=== PATIENT | male | born 1945 | race Hispanic/Latino ===

== ENCOUNTER 2016-04-08 18:09 | Inpatient (IN) | payer MEDICARE ==
--- NOTE | 2016-04-08 19:17 | Emergency Department Report ---
Chief Complaint: Altered Mental Status Stated Complaint: DEMENTIA/CHOKING ON SALIVA Time Seen by Provider: 04/08/16 19:14 - HPI History of Present Illness: 70 y/o male complain of increase weakness x 4 month with decrease appetite.pt state loss weigh over the last 4 months. - ROS Review of Systems: per HPI - Exam Vital Signs: Vital Signs 04/08/16 18:51 Temperature 97.6 F Pulse Rate 92 H Respiratory 18 Rate Blood Pressure 127/59 O2 Sat by Pulse 97 Oximetry Physical Exam: GENERAL: The patient is mal nourished. Patient is in NAD. HENT: Normocephalic. Atraumatic. Patient has moist mucous membranes. Throat: No erythema, swelling or exudates. Ears:Tympanic membranes pearly key ,intact , and free of exudate and erythema . EYES: Extraocular motions are intact,in the left eye PERRL to left eye NECK: Supple. No meningitic signs are noted. There is no adenopathy noted. CHEST/LUNGS: Clear to auscultation bilaterally. No wheezing, rales or rhonchi noted. There is no respiratory distress noted. HEART/CARDIOVASCULAR: Regular rate and rhythm. Normal S1 S2. No murmurs, rubs , clicks, or gallops. ABDOMEN: Abdomen is soft, nontender.. Bowel sounds normoactive. There is no abdominal distention. Negative rebound tenderness. : Deferred. SKIN: There is no rash. There is no edema. There is no diaphoresis.Normal skin turgor NEURO: The patient is A&Ox3. The patient has no focal neurologic deficits. MUSCULOSKELETAL: There is no tenderness or deformity. There is no limitation range of motion. posture erect.Spine aligned,no deformities. PSYCH: Pt has appropriate mood and affect. MSE screening note: Focused history and physical exam performed. Due to findings the following was ordered: ED Disposition for MSE Condition: Stable
[2016-04-08 20:05] LABS: INR 1.17 (0.87-1.13)
[2016-04-08 20:06] LABS: Partial Thromboplastin Time 28.1 Sec. (24.2-36.6)
[2016-04-08 20:09] LABS: Alanine Aminotransferase 16 units/L (7-56); Albumin 3.1 g/dL (3.9-5); Albumin/Globulin Ratio 0.9 %; Alkaline Phosphatase 757 units/L (35-129); Anion Gap 30 mmol/L; Bilirubin,Total 0.2 mg/dL (0.1-1.2); Calcium 8.6 mg/dL (8.4-10.2); Carbon Dioxide 22 mmol/L (22-30); Chloride 95.5 mmol/L (98-107); Glucose 114 mg/dL (75-100); Sodium 141 mmol/L (137-145); Total Protein 6.7 g/dL (6.3-8.2)
[2016-04-08 20:15] LABS: Bilirubin,Direct < 0.2 mg/dL (0-0.2)
[2016-04-08 20:17] LABS: Potassium 6.2 mmol/L (3.6-5.0)
[2016-04-08 20:21] LABS: Urine Drugs of Abuse Note Disclamer
[2016-04-08 20:27] LABS: BUN/Creatinine Ratio 8.08; Blood Urea Nitrogen 114 mg/dL (9-20)
[2016-04-09] MEDS ORDERED: CALCIUM CHLORIDE 1,000 MG in NACL 0.9% 100 ML IV ONE (01:34)
[2016-04-09] MEDS ORDERED: PROVENTIL IH ONE (01:34)
[2016-04-09] MEDS ORDERED: LASIX PO ONE (01:34)
[2016-04-09] MEDS ORDERED: D50W (25GM) IV ONE (01:34)
[2016-04-09] MEDS ORDERED: SODIUM BICARBONATE IV ONE (01:34)
[2016-04-09] MEDS ORDERED: KIONEX PO ONE (01:35)
[2016-04-09] MEDS ORDERED: NACL 0.9% 1000 ML 1,000 ML IV ONE (01:45)
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
[2016-04-09 02:13] LABS: Hematocrit 25.1 % (35.5-45.6); Hemoglobin 8.2 gm/dl (11.8-15.2); Mean Corpuscular HGB Conc 33 % (32-34); Mean Corpuscular Volume 74 fl (84-94); Platelet Count 345 K/mm3 (140-440); White Blood Count 10.8 K/mm3 (4.5-11.0)
[2016-04-09 02:40] LABS: Mean Corpuscular Hemoglobin 24 pg (28-32); Red Cell Distribution Width 20.6 % (13.2-15.2)
[2016-04-09] MEDS ORDERED: NACL 0.45% IV SCH (03:00)
[2016-04-09] MEDS ORDERED: SODIUM BICARBONATE IV SCH (03:00)
--- NOTE | 2016-04-09 03:42 | Ultrasound Report ---
FINAL REPORT PROCEDURE: US RENAL BILAT TECHNIQUE: Real-time sonography in multiple planes of the kidneys, ureters and urinary bladder was performed with image documentation. CPT 40468 HISTORY: arf COMPARISON: No prior studies are available for comparison. FINDINGS: RIGHT kidney: There is mild hydronephrosis. There are no stones, masses or cysts. The cortex is normal in thickness and demonstrates normal echotexture. There is no perinephric fluid.. Length: 11.4 cm. LEFT kidney: There is mild hydronephrosis. There are no stones, masses or cysts. The cortex is normal in thickness and demonstrates normal echotexture. There is no perinephric fluid... Length: 12.3cm. Bladder: Bladder is contracted containing a Hansen catheter.. IMPRESSION: Mild bilateral hydronephrosis..
[2016-04-09 03:54] LABS: Blastocytes % (Manual) 0 %
[2016-04-09 03:55] LABS: Anisocytosis 1+; Elliptocytes Few; Poikilocytosis 1+; Schistocytes Rare; Target Cells Few; Tear Drop Cells Few
[2016-04-09 03:58] LABS: Diff Status Complete
[2016-04-09] MEDS ORDERED: NACL 0.9% 1000 ML IV ONE (04:00)
[2016-04-09] MEDS ORDERED: NACL 0.9% 1000 ML 100 ML IV PRN (08:00)
--- NOTE | 2016-04-09 08:50 | XRay Report ---
Portable chest: There are compressed rib fractures along the upper lateral chest wall. There is mild generalized increase in interstitial pulmonary pattern. The heart is normal in size and mediastinal contours unremarkable. The interstitial pattern appears somewhat more prominent than prior exam on December 18, 2013 but the compressed rib fractures are also previously present. Impression: The slightly prominent interstitial pattern could be due to mild congestive changes or primary lung disease.
--- NOTE | 2016-04-09 09:11 | Admit Criteria Form ---
Admission Criteria Documentation: RENAL FAILURE, ACUTE Clinical Indications for Admission to Inpatient Care ( Place 'X' for any and all applicable criteria): Admission is indicated for ALL (if I & II) or III of the following [A](2)(3)(4)( 5)(6)(7): [X]I. Acute renal failure as indicated by ANY ONE of the following: [X]a) A 3-fold rise in serum creatinine from baseline [X]b) Serum creatinine greater than 4 mg/dL (354 micromoles/L) with an acute rise greater than 0.5 mg/dL (44.2 micromoles/L) [X]c) Reduction of more than 75% in estimated glomerular filtration rate from baseline [ ]d) Estimated glomerular filtration rate less than 35 mL/min/1.73m2 (0.59mL/sec/1.73m2)in a child up to 18 years of age [ ]e) Anuria indicated by ALL of the following: [ ]i) Adequate volume status [ ]ii) Cessation of urine output indicated by ANY ONE of the following: [ ]1) Urine output less than 0.3 mL/kg/hr for 24 hours [ ]2) Anuria (urine output less than 0.1 mL/kg/ hr) for 12 hours [X] II. Renal failure cannot be managed in an outpatient setting or observational care setting as indicating by ANY ONE of the following: [X]a) Altered mental status that is severe or persistent [ ]b) Volume overload or Respiratory distress (eg, clinically significant pulmonary edema) that is severe or persistent [ ]c) Cardiac arrhythmias of immediate concern [ ]d) Hemodynamic instability [X]e) Clinically significant electrolyte abnormality that requires inpatient care (eg, hyperkalemia with severe ECG findings)[B] [ ]f) Clinically significant metabolic abnormality (eg, acidosis) that is severe or persistent [ ]g) Acute treatment of renal failure (eg, renal replacement therapy) not feasible or appropriate in observational care setting [X]h) Clinical situation too unstable or uncertain (eg, inadequate urine output, ongoing decline in renal function, etiology unclear) [ ]i) Necessary support and caregiver ability to comply with outpatient treatment cannot be arranged in observation care timeframe (eg, within 24 hours) [ ]j) Other significant finding or clinical condition judged not to be within scope of observation care [X]III.General contraindications and/or Inappropriate clinical situations for Observational Care in patients with Acute Renal Failure, when ANY ONE of the following is required: [ X]a) Prediction of prolongation of LOS based on ANY ONE of the following may be considered as a contraindication for observational care 2, 3, 4, 5, 6, 7, 8 , 9, 10, 11 [X]i) Age > 65 yrs. [ ]ii) Patient arriving by ambulance [ ]iii) Patient with high acuity [ ]iv) Patient requiring vital sign monitoring [ ]v) Patient on IV medication [ ]b) Systolic blood pressures 180mmHg 3,12 [ ]c) Patient with altered mental status including delirium and other alteration of consciousness, (3) [ ]d) Patient whose discharge disposition will be to a penitentiary home or rehabilitation home should not be managed in Emergency Department Observation Unit. CMS rule requires 3 days hospital stay before such placement.3,13 [ ]e) Patient with failure to thrive due to broad array of etiologies 3, 16,17 [ ]f) Inability to ambulate 3,14 Extended stay beyond goal length of stay may be needed for(13) [ ]a) Continuing uremic complications [ ]b) Care for comorbidities [ ]c) acute renal failure [ ]d) Need for dialysis The original [employer] [facility] [employer] content created by [employer] has been revised. The portions of the content which have been revised are identified through the use of italic text or in bold, and [facility] has neither reviewed nor approved the modified material. All other unmodified content is copyright [employer]. Please see references footnoted in the original [employer] edition 2016 Admission Criteria Met: Yes
[2016-04-09] MEDS ORDERED: FLUARIX QUAD 2016-2017(36 MOS+) IM ONE (12:00)
[2016-04-09] MEDS ORDERED: PNEUMOVAX 23 IM ONE (12:00)
--- NOTE | 2016-04-09 12:22 | Event Note ---
Date: 04/09/[address] Perma-cath. Pt is not NPO, and eating lunch now. Will schedule for tomorrow.
--- NOTE | 2016-04-09 14:08 | Consultation ---
History of Present Illness - Reason for Consult Consult date: 04/09/16 Requesting physician: FALLON GEIGER - History of Present Illness 70-year-old gentleman was a history of COPD, HTN, brought to the hospital complaints of altered mental status. Daughter reports that patient has been more confused for the past 4-5 days and had a syncopal episode. He has hx of prostate cancer (details not available at present). In addition to above family has noted that he has had difficulty urination and decreased urine out put. No aggravating or relieving factors. Initial labs in ED showed BUN of 114 and creatinine of 14. Potassium was 6.1. We are then consulted to assist with diagnose and management of his renal insufficiency. Pt has hx of Depression/ Schizophrenia and was recently d/sarah beth from [facility]. Past History Past Medical History: COPD, other (alcohol abuse, depression, schizophrenia, HTN , prostate cancer ) Past Surgical History: No surgical history Social history: alcohol abuse. denies: smoking, IV drug use Family history: no significant family history, other (no ESRD ) Medications and Allergies Allergies Allergy/AdvReac Type Severity Reaction Status Date / Time Penicillins Allergy Unknown Verified 12/17/13 22:08 Home Medications Medication Instructions Recorded Confirmed Last Taken Type risperiDONE [RisperDAL] 0.5 mg PO HS 09/05/13 04/09/16 1 Day Ago History 0.5 Disulfiram (Nf) [Antabuse (Nf)] 250 mg PO DAILY 04/09/16 04/09/16 1 Day Ago History 250 Mirtazapine [Remeron] 45 mg PO QHS 04/09/16 04/09/16 1 Day Ago History 45 Temazepam [Restoril] 15 mg PO HS 04/09/16 04/09/16 1 Day Ago History 15 Active Meds: Active Medications Sodium Bicarbonate 70 meq/ (Sodium Chloride) 1,070 mls @ 100 mls/hr IV DIRECT BRAULIO Sodium Chloride (Nacl 0.9% 1000 Ml) 100 mls @ 999 mls/hr IV SHU PRN PRN Reason: Hypotension Vancomycin HCl (Vancomycin/Ns 1 Gm/250 Ml) 250 mls @ 167 mls/hr IV PREOP NR PRN Reason: Protocol Stop: 04/10/16 23:25 Review of Systems Constitutional: weight loss, fatigue, weakness, no weight gain Ears, nose, mouth and throat: no nasal congestion, no nasal discharge Cardiovascular: no chest pain, no orthopnea, no palpitations Respiratory: no cough, no excessive sputum Gastrointestinal: no abdominal pain, no nausea, no vomiting, no diarrhea Genitourinary Male: no dysuria, no hematuria, no flank pain Musculoskeletal: no neck stiffness, no neck pain Integumentary: no rash, no pruritis Neurological: no paralysis, no weakness Psychiatric: no memory loss, no irritability Endocrine: no cold intolerance, no heat intolerance Hematologic/Lymphatic: no easy bruising, no easy bleeding Exam - Vital Signs Vital signs: Vital Signs Temp Pulse Resp BP Pulse Ox 97.6 F 92 H 18 127/59 97 04/08/16 18:51 04/08/16 18:51 04/08/16 18:51 04/08/16 18:51 04/08/16 18:51 - General Appearance General appearance: well-developed, well-nourished, appears stated age, cachectic, fatigue EENT: ATNC, PERRL, mucous membranes dry Neck: Present: neck supple, trachea midline. Absent: JVD/HJR, Masses Respiratory: Clear to Ascultation Heart: regular, normal heart rate, S1S2, no murmurs Gastrointestinal: Present: normoactive bowel sounds. Absent: tenderness Integumentary: no rash, warm and dry Neurologic: no focal deficit, alert and oriented x3, gait normal, strength 5/5 Musculoskeletal: Absent: deformities, joint swelling Psychiatric: mood/affect appropriate, cooperative Results - Lab Results 04/09/16 02:04 04/09/16 14:20 Most recent lab results Calcium 8.6 mg/dL (8.4-10.2) 04/08/16 19:27 Assessment and Plan 1. LEROY vs LEROY on CKD No recent baseline CR available. Last CR on [facility] records is from Dec 2013 and was normal at 1. LEROY likely 2/2 obstructive uropathy augusto given his hx of prostate cancer 2. Bilateral hydronephrosis/ Obstructive uropathy 3. Hx of prostate cancer 4. Hyperkalemia 5. AG metabolic acidosis 6. Anemia, unspecified 7. AMS likely metabolic encephalopathy/uremia Plan: Pt with severe renal insufficiency with BUN> 100 and Cr of 14 on admission with unknown recent baseline He has AMS likely due to uremia, has large AG metabolic acidosis and hyperkalemia which can all be indications for dialysis Risk and benefits of dialysis explained to family IVF/Hansen ordered Recheck BMP Further recommendations to follow Upon re evaluation patient started producing more urine/Hansen in place and repeat labs showed significant improvement in his electrolyte panel. Will hold off on dialysis. Continue IVF and will re evaluate in am. Discussed with ALLEN
[2016-04-09 14:57] LABS: BUN/Creatinine Ratio 14.83; Calcium 7.9 mg/dL (8.4-10.2); Chloride 105.3 mmol/L (98-107); Potassium 4.3 mmol/L (3.6-5.0)
[2016-04-09] MEDS: MORPHINE IV PRN (18:05)
[2016-04-09] MEDS: NACL 0.45% IV SCH (18:34)
[2016-04-09] MEDS: SODIUM BICARBONATE IV SCH (18:34)
--- NOTE | 2016-04-09 20:09 | History and Physical Report ---
History of Present Illness Date of examination: 04/09/16 Date of admission: 04/09/16 02:31 Chief complaint: Syncope and fatigue - 1 day duration History of present illness: Patient is a 70-year-old gentleman was a history of COPD, depression, schizophrenia, alcohol abuse, was recently discharged from [facility] and was residing with a friend when he suddenly passed out. Was brought to the emergency department by his friend. Patient was found to have severely elevated BUN and creatinine. BUN was found to be 114 and creatinine was found to be 14. Potassium was 6.1. Admission was therefore requested. Patient denies any fever. No abdominal pain or nausea no vomiting. Denies any chest pain. Patient endorses hearing voices and seeing things out of who do not see. Denies any suicidal or homicidal ideation. Past History Past Medical History: COPD, hypertension, other (insomnia. Schizophrenia. tobacco abuse. Blind in right eye) Medications and Allergies Allergies Allergy/AdvReac Type Severity Reaction Status Date / Time Penicillins Allergy Unknown Verified 12/17/13 22:08 Home Medications Medication Instructions Recorded Confirmed Last Taken Type risperiDONE [RisperDAL] 0.5 mg PO HS 09/05/13 04/09/16 1 Day Ago History 0.5 Disulfiram (Nf) [Antabuse (Nf)] 250 mg PO DAILY 04/09/16 04/09/16 1 Day Ago History 250 Mirtazapine [Remeron] 45 mg PO QHS 04/09/16 04/09/16 1 Day Ago History 45 Temazepam [Restoril] 15 mg PO HS 04/09/16 04/09/16 1 Day Ago History 15 Active Meds: Active Medications Sodium Bicarbonate 70 meq/ (Sodium Chloride) 1,070 mls @ 100 mls/hr IV DIRECT BRAULIO Last Admin: 04/09/16 18:34 Dose: 100 mls/hr Sodium Chloride (Nacl 0.9% 1000 Ml) 100 mls @ 999 mls/hr IV SHU PRN PRN Reason: Hypotension Vancomycin HCl (Vancomycin/Ns 1 Gm/250 Ml) 250 mls @ 167 mls/hr IV PREOP NR PRN Reason: Protocol Stop: 04/10/16 23:25 Miscellaneous Medication (Mirtazapine [Remeron]) 45 mg PO QHS BRAULIO Morphine Sulfate (Morphine) 1 mg IV Q4H PRN PRN Reason: Pain, Moderate (4-6) Last Admin: 04/09/16 18:05 Dose: 1 mg Risperidone (Risperdal) 0.5 mg PO QHS BRAULIO Temazepam (Restoril) 15 mg PO HS BRAULIO Review of systems Constitutional: Well Nouridhed and Well developed. Head: NC/ AT Eyes: Blind in the right eye. No discharge from the eyes Nose: Denies any rhinorrhea or epistaxis Throats: Denies any post nasal drainage. Ears: Denies any hearing deficits Cardiovascular system: Denies any chest pain, shortness of breath, orthopnea, paroxysmal nocturnal dyspnea, or palpitation. Respiratory system: Denies any cough, difficulty breathing, wheezing, pleuritic chest pain, Gastrointestinal system: Denies any abdominal pain, nausea vomiting, hematemesis or melena. Neurological system: Denies any headache, slurred speech, facial droop, lateralizing weakness Genitalia system: Denies any dysuria, urinary frequency or urgency, urethral discharge Skin: No rashes, hyperpigmented spots. Hematological: Denies any cervical tenderness hemorrhages or petechia. Immunological: Denies any multiple septic spots, Lymphatic: Denies any generalized lymphadenopathy. Endocrine: Denies any polyuria, polydipsia, polyphagia. No heat or cold intolerance. Psych: Endorses visual and auditory hallucinations. Denies any suicidal was at addition. Exam - Constitutional Vitals: Temp Pulse Resp BP Pulse Ox 98.2 F 76 26 H 104/55 96 04/09/16 14:16 04/09/16 16:29 04/09/16 16:29 04/09/16 14:16 04/09/16 14:16 General appearance: Present: no acute distress - EENT Eyes: Present: PERRL ENT: hearing intact, clear oral mucosa, other (blind on the right eye) - Neck Neck: Present: supple, normal ROM - Respiratory Respiratory effort: normal Respiratory: bilateral: CTA - Cardiovascular Heart Sounds: Present: S1 & S2. Absent: rub, click - Extremities Extremities: pulses symmetrical, No edema Peripheral Pulses: within normal limits - Abdominal General gastrointestinal: Present: soft, non-tender, non-distended, normal bowel sounds - Integumentary Integumentary: Present: clear, warm, dry - Musculoskeletal Musculoskeletal: gait normal, strength equal bilaterally - Psychiatric Psychiatric: appropriate mood/affect, intact judgment & insight - Neurologic Neurologic: CNII-XII intact, moves all extremities Results - Labs CBC & Chem 7: 04/09/16 02:04 04/09/16 14:20 Labs: Abnormal lab results 04/09/16 Range/Units 14:20 Sodium 146 H (137-145) mmol/L BUN 46 H (9-20) mg/dL Creatinine 3.1 H D (0.8-1.5) mg/dL Glucose 113 H (75-100) mg/dL Calcium 7.9 L (8.4-10.2) mg/dL Assessment and Plan Assessment/Plan 1. Acute on chronic renal failure: Obtain urinalysis. Renal ultrasound. Urine electrolytes. Nephrology consult. 2. Hyperkalemia: Kayexalate. Calcium gluconate 1 ampule up. Will check potassium level. 3. Anemia: Secondary to chronic renal disease. Trend hemoglobin and hematocrit. Anemia workup. 4. COPD: Combivent 2 puffs 4 times a day. 5. Schizophrenia: Stable on Risperdal. 6. Alcohol abuse: Continue with Antabuse. Patient's says it is 1 drink irresponsibly anymore. advised to quit. 7. Tobacco abuse. Counseling done. 8. DVT prophylaxis will be with Lovenox, GI prophylaxis with Pepcid. 30 minutes was spent in direct patient care, evaluation of medical records laboratory and radiological data and explanation of management plan to the patient.
[2016-04-09] MEDS ORDERED: NON-FORMULARY (Mirtazapine [Remeron] 45 MG) PO SCH (22:00)
[2016-04-09] MEDS ORDERED: NON-FORMULARY (Risperidone [Risperdal] 0.5 MG) PO SCH (22:00)
[2016-04-09] MEDS: RisperDAL PO SCH (22:33)
[2016-04-09] MEDS: RESTORIL PO SCH (22:35)
[2016-04-09] MEDS: REMERON PO SCH (22:35)
[2016-04-10] MEDS: NACL 0.45% IV SCH (06:05)
[2016-04-10] MEDS: SODIUM BICARBONATE IV SCH (06:05)
[2016-04-10] MEDS ORDERED: VANCOMYCIN/NS 1 GM/250 ML 250 ML IV NR (08:00)
[2016-04-10 08:37] LABS: Anion Gap 16 mmol/L; Blood Urea Nitrogen 18 mg/dL (9-20); Carbon Dioxide 24 mmol/L (22-30); Chloride 108.7 mmol/L (98-107); Glucose 95 mg/dL (75-100); Potassium 3.7 mmol/L (3.6-5.0); Sodium 145 mmol/L (137-145)
[2016-04-10] MEDS: MORPHINE IV PRN ×3 (09:12→17:16)
--- NOTE | 2016-04-10 09:24 | Progress Note ---
Assessment and Plan 1. LEROY vs LEROY on CKD No recent baseline CR available. Last CR on [facility] records is from Dec 2013 and was normal at 1. LEROY likely 2/2 obstructive uropathy augusto given his hx of prostate cancer 2. Bilateral hydronephrosis/ Obstructive uropathy 3. Hx of prostate cancer 4. Hyperkalemia 5. AG metabolic acidosis 6. Anemia, unspecified 7. AMS likely metabolic encephalopathy/uremia Plan: Pt admitted with severe renal insufficiency with BUN> 100 and Cr of 14 on admission and some uremic symptoms. BUN/CR improved quickly with relieve of his urinary obstruction and IVF Continue IVF till he finishes present bag(about 800 cc) and encourage oral hydration Monitor for post obstructive diuresis Avoid nephrotoxins consult for hx of prostate cancer (details not available) Discussed with RN Subjective Date of service: 04/10/16 Interval history: Feels better, No SOB/CP, " my daughter has all my money and I have not seen her since I came in". Objective - Vital Signs Vital signs: Vital Signs - 12hr 04/09/16 04/10/16 04/10/16 22:30 00:25 04:36 Temperature 99.9 F H 98.5 F Pulse Rate [ Left Radial] Pulse Rate [ 89 80 77 Right Radial] Respiratory 20 18 18 Rate Blood Pressure 92/41 96/49 99/54 [Right Arm] O2 Sat by Pulse 96 98 96 Oximetry 04/10/16 07:18 Temperature 98.0 F Pulse Rate [ 79 Left Radial] Pulse Rate [ Right Radial] Respiratory 16 Rate Blood Pressure 99/52 [Right Arm] O2 Sat by Pulse 98 Oximetry - General Appearance General appearance: well-developed, well-nourished, appears stated age EENT: ATNC, PERRL, mucous membranes moist Neck: no JVD, no thyromegaly, no carotid bruit, supple Respiratory: Present: Clear to Ascultation. Absent: Ronchi Cardiology: regular, normal heart rate, S1S2, no murmurs Gastrointestinal: normoactive bowel sounds, no tenderness Integumentary: no rash, warm and dry Neurologic: no focal deficit, alert and oriented x3, reflexes 2+ and symmetric, gait normal, strength 5/5 Musculoskeletal: other (No deformities or clubbing ) Psychiatric: mood/affect appropriate, cooperative - Lab 04/09/16 02:04 04/10/16 07:51 Most recent lab results Calcium 8.0 mg/dL (8.4-10.2) L 04/10/16 07:51
--- NOTE | 2016-04-10 09:52 | Progress Note ---
Assessment and Plan Assessment/Plan 1. Acute on chronic renal failure: Improved. Most likely secondary to obstructive uropathy. 2. Mild bilateral hydronephrosis. Suspects that outlet obstruction. Patient has been scheduled to follow-up with a urologist many months ago but hasn't been able to do so far no obvious reasons 3. Hyperkalemia: Corrected 4. Anemia: Secondary to chronic renal disease. Trend hemoglobin and hematocrit. Anemia workup. 5. COPD: Combivent 2 puffs 4 times a day. 6. Schizophrenia: Stable on Risperdal. 7. Alcohol abuse: Continue with Antabuse. Patient's says it is 1 drink irresponsibly anymore. advised to quit. 8. Tobacco abuse. Counseling done. 9. DVT prophylaxis will be with Lovenox, GI prophylaxis with Pepcid. 30 minutes was spent in direct patient care, evaluation of medical records laboratory and radiological data and explanation of management plan to the patient. Subjective Date of service: 04/10/16 Principal diagnosis: acute on chronic respiratory failure, anemia of chronic renal disease Interval history: No new complaints. No overnight events. Objective - Constitutional Vitals: Vital Signs - 12hr 04/09/16 04/10/16 04/10/16 22:30 00:25 04:36 Temperature 99.9 F H 98.5 F Pulse Rate [ Left Radial] Pulse Rate [ 89 80 77 Right Radial] Respiratory 20 18 18 Rate Blood Pressure 92/41 96/49 99/54 [Right Arm] O2 Sat by Pulse 96 98 96 Oximetry 04/10/16 07:18 Temperature 98.0 F Pulse Rate [ 79 Left Radial] Pulse Rate [ Right Radial] Respiratory 16 Rate Blood Pressure 99/52 [Right Arm] O2 Sat by Pulse 98 Oximetry General appearance: Present: no acute distress, well-nourished, other (blind on the right eye) - EENT Eyes: PERRL, EOM intact ENT: hearing intact, clear oral mucosa Ears: bilateral: normal - Neck Neck: supple, normal ROM - Respiratory Respiratory effort: normal Respiratory: bilateral: CTA - Breasts Breasts: normal - Cardiovascular Rhythm: regular Heart Sounds: Present: S1 & S2. Absent: gallop, rub Extremities: pulses intact, No edema, normal color, Full ROM - Gastrointestinal General gastrointestinal: Present: soft, non-tender, non-distended, normal bowel sounds - Genitourinary Male genitourinary: normal - Integumentary Integumentary: clear, warm, dry - Musculoskeletal Musculoskeletal: 1, strength equal bilaterally - Neurologic Neurologic: moves all extremities - Psychiatric Psychiatric: memory intact, appropriate mood/affect, intact judgment & insight - Labs CBC & Chem 7: 04/09/16 02:04 04/10/16 07:51 Labs: Abnormal lab results 04/09/16 04/10/16 Range/Units 14:20 07:51 Sodium 146 H (137-145) mmol/L Chloride 108.7 H (98-107) mmol/L BUN 46 H (9-20) mg/dL Creatinine 3.1 H D (0.8-1.5) mg/dL Glucose 113 H (75-100) mg/dL Calcium 7.9 L 8.0 L (8.4-10.2) mg/dL
--- NOTE | 2016-04-10 11:29 | Event Note ---
Date: 04/10/16 Discussed with nephrology. Patient's creatinine has improved dramatically. We will hold off on permacath placement. This was discussed with the patient who states understanding and agrees.
[2016-04-10] MEDS: RESTORIL PO SCH (21:33)
[2016-04-10] MEDS: REMERON PO SCH (21:33)
[2016-04-10] MEDS: RisperDAL PO SCH (21:33)
[2016-04-11] MEDS: MORPHINE IV PRN ×3 (01:10→18:29)
--- NOTE | 2016-04-11 15:37 | Progress Note ---
Assessment and Plan 1. LEROY vs LEROY on CKD No recent baseline CR available. Last CR on [facility] records is from Dec 2013 and was normal at 1. LEROY likely 2/2 obstructive uropathy augusto given his hx of prostate cancer 2. Bilateral hydronephrosis/ Obstructive uropathy 3. Hx of prostate cancer 4. Hyperkalemia 5. AG metabolic acidosis 6. Anemia, unspecified 7. AMS likely metabolic encephalopathy/uremia Plan: Pt admitted with severe renal insufficiency with BUN> 100 and Cr of 14 on admission and some uremic symptoms. BUN/CR improved quickly with relieve of his urinary obstruction and IVF Encourage oral hydration Monitor for post obstructive diuresis No labs drawn today. Requested. Further recommendations to follow after reviewing his labs Avoid nephrotoxins consult for hx of prostate cancer (details not available) Subjective Date of service: 04/11/16 Principal diagnosis: acute on chronic respiratory failure, anemia of chronic renal disease Interval history: No SOB/CP Objective - General Appearance General appearance: well-developed, well-nourished, appears stated age, frail EENT: PERRL, mucous membranes moist Neck: no JVD, no thyromegaly, no carotid bruit, supple Respiratory: Present: Clear to Ascultation. Absent: Wheezes, Normal Exam Cardiology: regular, normal heart rate, S1S2, no murmurs Gastrointestinal: normoactive bowel sounds, no tenderness Integumentary: no rash, warm and dry Neurologic: no focal deficit, alert and oriented x3, reflexes 2+ and symmetric, gait normal, strength 5/5 Musculoskeletal: no deformities, no erythema, no cyanosis, no clubbing Psychiatric: mood/affect appropriate, cooperative - Lab 04/09/16 02:04 04/10/16 07:51 Most recent lab results Calcium 8.0 mg/dL (8.4-10.2) L 04/10/16 07:51
[2016-04-11 18:38] LABS: Alanine Aminotransferase 17 units/L (7-56); Albumin 2.7 g/dL (3.9-5); Albumin/Globulin Ratio 0.9 %; Alkaline Phosphatase 617 units/L (35-129); Bilirubin,Total < 0.2 mg/dL (0.1-1.2); Blood Urea Nitrogen 12 mg/dL (9-20); Calcium 8.2 mg/dL (8.4-10.2); Carbon Dioxide 22 mmol/L (22-30); Chloride 101.5 mmol/L (98-107); Glucose 139 mg/dL (75-100); Potassium 3.9 mmol/L (3.6-5.0); Sodium 136 mmol/L (137-145); Total Protein 5.7 g/dL (6.3-8.2)
[2016-04-11 18:48] LABS: Anion Gap 16 mmol/L
[2016-04-11] MEDS: RESTORIL PO SCH (22:12)
[2016-04-11] MEDS: REMERON PO SCH (22:12)
[2016-04-11] MEDS: RisperDAL PO SCH (22:12)
[2016-04-12] MEDS: MORPHINE IV PRN ×5 (00:10→23:23)
--- NOTE | 2016-04-12 09:42 | Discharge Summary ---
Providers - Providers Date of Admission: 04/09/16 02:31 Date of discharge: 04/12/16 Attending physician: JOHANA WING 04/09/16 02:55 Consult to Physician [CONS] Urgent Consulting Provider: GINA SINGH Reason For Exam: arf Notified:: y 04/09/16 11:35 Consult to Interventional Radiology [CONS] Routine Consulting Provider: FREDRICK GRACE Reason For Exam: permcath placement Place consult to:: dr. grace Notified:: office Phone number called:: Was contact made?: Yes If yes, spoke with:: ulysses Time called:: 12:07 Primary care physician: [employer] Hospitalization Reason for admission: Acute ranl failure Condition: Stable Pertinent studies: none Procedures: Hansen's catherter insertion Hospital course: Pt is a 70 y/o pt who has a history of elevated PSA, COPD, schizophrenia and tobacco use disorder who passed out in a a friend's house. was brought to the ED of [facility]. BUN was found to be 114 and creatinine 14.1. Potassium as 6.2. Admission was requested. Hansen catherter was inserted. Renal US showed juan carlos hydronephrosis. BUN, creatinin level improved to normal. Potassium level corrected with Kayxalate on admission. Of note is that pt had had elevated PSA in the passed and referred to a urologist but has not followed up. He promised to do so on discharge this time around. He will be discharged on Hansen catheter with a urine bag and to f/u with urologist in 2-3 days. Disposition: DISCHARGED TO HOME OR SELFCARE Core Measure Documentation - Palliative Care Palliative Care/ Comfort Measures: Not Applicable - Core Measures Any of the following diagnoses?: none Exam - Constitutional Vitals: Temp Pulse Resp BP Pulse Ox 98.9 F 103 H 16 130/60 96 04/12/16 07:05 04/12/16 07:57 04/12/16 07:57 04/12/16 07:05 04/12/16 07:05 General appearance: Present: no acute distress, well-nourished, other (blind in the right eye) - EENT Eyes: Present: PERRL ENT: hearing intact, clear oral mucosa - Neck Neck: Present: supple, normal ROM - Respiratory Respiratory effort: normal Respiratory: bilateral: CTA - Cardiovascular Heart Sounds: Present: S1 & S2. Absent: rub, click - Extremities Extremities: pulses symmetrical, No edema Peripheral Pulses: within normal limits - Abdominal General gastrointestinal: Present: soft, non-tender, non-distended, normal bowel sounds - Rectal Rectal Exam: other (Has a Hansen in place and connected to a urine bag) - Integumentary Integumentary: Present: clear, warm, dry - Musculoskeletal Musculoskeletal: gait normal, strength equal bilaterally - Psychiatric Psychiatric: appropriate mood/affect, intact judgment & insight - Neurologic Neurologic: CNII-XII intact, moves all extremities Plan Activity: advance as tolerated, fall precautions Diet: regular Follow up with: PRIMARY CARE, [Primary Care Provider] - 3-5 Days Prescriptions: Ciprofloxacin [Ciprofloxacin ORAL LIQ] 500 mg PO Q12H #20 ml Mirtazapine [Remeron] 45 mg PO QHS #30 tablet risperiDONE [RisperDAL] 0.5 mg PO QHS #30 tablet Temazepam [Restoril] 15 mg PO HS #30 capsule
--- NOTE | 2016-04-12 13:55 | Progress Note ---
Assessment and Plan 1. LEROY vs LEROY on CKD No recent baseline CR available. Last CR on [facility] records is from Dec 2013 and was normal at 1. LEROY likely 2/2 obstructive uropathy augusto given his hx of prostate cancer 2. Bilateral hydronephrosis/ Obstructive uropathy 3. Hx of prostate cancer 4. Hyperkalemia, resolved 5. AG metabolic acidosis, resolved 6. Anemia, unspecified 7. AMS likely metabolic encephalopathy/uremia, resolved 8. Elevated alkaline phosphatase level cause ? mets, lever disease Plan: Pt admitted with severe renal insufficiency with BUN> 100 and Cr of 14 on admission and some uremic symptoms. BUN/CR improved quickly with relieve of his urinary obstruction and IVF Encourage oral hydration Monitor for post obstructive diuresis Avoid nephrotoxins consult for hx of prostate cancer (details not available) Consider GI evalGEREMIAS [place], ? mets to bones from malignancy for further work up of his elevated alk phos level Discussed with primary team Subjective Date of service: 04/12/16 Principal diagnosis: acute on chronic respiratory failure, anemia of chronic renal disease Interval history: No SOB/CP Objective - Vital Signs Vital signs: Vital Signs - 12hr 04/12/16 04/12/16 04/12/16 04:04 07:05 07:56 Temperature 98.9 F Pulse Rate [ Apical] Pulse Rate [ 16 L Left Radial] Respiratory 16 Rate Respiratory 17 16 Rate [Lower Back] Blood Pressure 130/60 [Left Arm] O2 Sat by Pulse 96 Oximetry 04/12/16 04/12/16 07:57 09:37 Temperature Pulse Rate [ 103 H Apical] Pulse Rate [ Left Radial] Respiratory 16 Rate Respiratory 16 Rate [Lower Back] Blood Pressure [Left Arm] O2 Sat by Pulse Oximetry - General Appearance General appearance: well-developed, well-nourished, appears stated age EENT: PERRL, mucous membranes moist Neck: no JVD, no thyromegaly, no carotid bruit, supple Respiratory: Present: Clear to Ascultation. Absent: Wheezes Cardiology: regular, normal heart rate, S1S2, no murmurs Gastrointestinal: normoactive bowel sounds, no tenderness Integumentary: no rash, warm and dry Neurologic: no focal deficit, alert and oriented x3, reflexes 2+ and symmetric, gait normal, strength 5/5 Musculoskeletal: no deformities, no erythema, no cyanosis, no clubbing Psychiatric: mood/affect appropriate, cooperative - Lab 04/09/16 02:04 04/11/16 17:19 Most recent lab results Calcium 8.2 mg/dL (8.4-10.2) L 04/11/16 17:19
[2016-04-12] MEDS: RESTORIL PO SCH (22:28)
[2016-04-12] MEDS: REMERON PO SCH (22:29)
[2016-04-12] MEDS: RisperDAL PO SCH (22:30)
[2016-04-12 22:44] LABS: Alanine Aminotransferase 24 units/L (7-56); Albumin 2.9 g/dL (3.9-5); Albumin/Globulin Ratio 0.9 %; Alkaline Phosphatase 659 units/L (35-129); Anion Gap 22 mmol/L; Bilirubin,Total 0.2 mg/dL (0.1-1.2); Blood Urea Nitrogen 10 mg/dL (9-20); Carbon Dioxide 20 mmol/L (22-30); Chloride 101.4 mmol/L (98-107); Glucose 109 mg/dL (75-100); Potassium 3.6 mmol/L (3.6-5.0); Sodium 140 mmol/L (137-145); Total Protein 6.1 g/dL (6.3-8.2)
[2016-04-12] MEDS ORDERED: D5/0.45NS 1,000 ML IV SCH (23:00)
[2016-04-13] MEDS: MORPHINE IV PRN ×3 (03:20→14:43)
--- NOTE | 2016-04-13 08:12 | Progress Note ---
Assessment and Plan Assessment/Plan 1. Acute on chronic renal failure: Improved. Most likely secondary to obstructive uropathy. 2. Mild bilateral hydronephrosis. Suspects that outlet obstruction. Patient has been scheduled to follow-up with a urologist many months ago but hasn't been able to do so far no obvious reasons 3. Hyperkalemia: Corrected 4. Anemia: Secondary to chronic renal disease. Trend hemoglobin and hematocrit. Anemia workup. 5. COPD: Combivent 2 puffs 4 times a day. 6. Schizophrenia: Stable on Risperdal. 7. Alcohol abuse: Continue with Antabuse. Patient's says it is 1 drink irresponsibly anymore. advised to quit. 8. Tobacco abuse. Counseling done. 9. DVT prophylaxis will be with Lovenox, GI prophylaxis with Pepcid. 10. Elevate alkaline phosphatase: PSA ordered as well as CT abdomen and pelvis b /c possible Prostate cancer b/c elevated PSA in the past for which he has been referred to Urologist but did not keep appointment. 11. Elevated PSA: On 05/14/14 total PSA was 18.8, patient was referred to f/u with urologist, Dr Chavez. On 01/07/15 another referral was given to f/u with Dr Chavez but patient didn't follow through. On 10/15/2015 PSA was 255.53, patient was still encouraged to f/u with Dr Chavez still didn't follow through. On 12/26/15 another referral was given to f/u with Dr Chavez and patient saw Dr Chavez in 12/2015 and biopsy was recommended. PSA today is over 2000. Pt will be discharged today to f/u with Dr Chavez on out pt basis. 30 minutes was spent in direct patient care, evaluation of medical records laboratory and radiological data and explanation of management plan to the patient. Subjective Date of service: 04/13/16 Principal diagnosis: acute on chronic respiratory failure, anemia of chronic renal disease Interval history: No new complaints. No overnight events. feeling better Objective - Constitutional Vitals: Vital Signs - 12hr 04/12/16 04/13/16 04/13/16 22:00 00:00 07:11 Temperature 98.9 F 98.8 F Pulse Rate [ 75 96 H 96 H Left Radial] Respiratory 22 18 18 Rate Blood Pressure 132/63 109/58 [Left Arm] O2 Sat by Pulse 98 97 Oximetry General appearance: Present: no acute distress, well-nourished - EENT Eyes: PERRL, EOM intact ENT: hearing intact, clear oral mucosa Ears: bilateral: normal - Neck Neck: supple, normal ROM - Respiratory Respiratory effort: normal Respiratory: bilateral: CTA - Breasts Breasts: normal - Cardiovascular Rhythm: regular Heart Sounds: Present: S1 & S2. Absent: gallop, rub Extremities: pulses intact, No edema, normal color, Full ROM - Gastrointestinal General gastrointestinal: Present: soft, non-tender, non-distended, normal bowel sounds - Genitourinary Male genitourinary: normal - Integumentary Integumentary: clear, warm, dry - Musculoskeletal Musculoskeletal: 1, strength equal bilaterally - Neurologic Neurologic: moves all extremities - Psychiatric Psychiatric: memory intact, appropriate mood/affect, intact judgment & insight - Labs CBC & Chem 7: 04/09/16 02:04 04/12/16 22:07 Labs: Abnormal lab results 04/12/16 Range/Units 22:07 Carbon Dioxide 20 L (22-30) mmol/L Creatinine 0.5 L (0.8-1.5) mg/dL Glucose 109 H (75-100) mg/dL Calcium 8.0 L (8.4-10.2) mg/dL Alkaline Phosphatase 659 H (35-129) units/L Total Protein 6.1 L (6.3-8.2) g/dL Albumin 2.9 L (3.9-5) g/dL
[2016-04-13] MEDS ORDERED: NACL 0.9% 1000 ML 1,000 ML IV SCH (11:00)
--- NOTE | 2016-04-13 13:14 | Progress Note ---
Assessment and Plan 1. LEROY vs LEROY on CKD No recent baseline CR available. Last CR on [facility] records is from Dec 2013 and was normal at 1. LEROY likely 2/2 obstructive uropathy augusto given his hx of prostate cancer 2. Bilateral hydronephrosis/ Obstructive uropathy 3. Hx of prostate cancer 4. Hyperkalemia, resolved 5. AG metabolic acidosis, resolved 6. Anemia, unspecified 7. AMS likely metabolic encephalopathy/uremia, resolved 8. Elevated alkaline phosphatase level cause ? mets, liver disease Plan: Pt admitted with severe renal insufficiency with BUN> 100 and Cr of 14 on admission and some uremic symptoms. BUN/CR improved quickly with relieve of his urinary obstruction and IVF Encourage oral hydration Monitor for post obstructive diuresis Avoid nephrotoxins consult for hx of prostate cancer (details not available) Discussed with Dr Domingo, plan to do CT with contrast today for further eval of his elevated alk phos/PSA. ? mets. Ok to use contrast. IVF ordered pre and post contrast. Discussed with RNIrena Subjective Date of service: 04/13/16 Principal diagnosis: acute on chronic respiratory failure, anemia of chronic renal disease Interval history: No SOB/CP Objective - Vital Signs Vital signs: Vital Signs - 12hr 04/13/16 07:11 Temperature 98.8 F Pulse Rate [ 96 H Left Radial] Respiratory 18 Rate Blood Pressure 109/58 [Left Arm] O2 Sat by Pulse 97 Oximetry - General Appearance General appearance: well-developed, well-nourished, appears stated age, frail EENT: PERRL, mucous membranes moist Neck: no JVD, no thyromegaly, no carotid bruit, supple Respiratory: Present: Clear to Ascultation Cardiology: regular, normal heart rate, S1S2, no murmurs Gastrointestinal: normoactive bowel sounds, no tenderness Integumentary: no rash, warm and dry Neurologic: no focal deficit, alert and oriented x3, reflexes 2+ and symmetric, gait normal, strength 5/5 Musculoskeletal: no deformities, no erythema, no cyanosis, no clubbing Psychiatric: mood/affect appropriate, cooperative - Lab 04/09/16 02:04 04/12/16 22:07 Most recent lab results Calcium 8.0 mg/dL (8.4-10.2) L 04/12/16 22:07
[2016-04-13] MEDS ORDERED: LEVAQUIN PO SCH (14:00)
[2016-04-13 14:10] VITALS: BP 117/51
--- NOTE | 2016-04-13 15:05 | Cat Scan Report ---
CT ABDOMEN AND PELVIS WITH CONTRAST INDICATION: Elevated alkaline phosphatase. Obstructive uropathy. COMPARISON: 04/09/[address] FINDINGS: Abdomen and pelvis CT performed following oral contrast and intravenous administration of 100 cc of Omnipaque 300. LUNG BASES: New minimal left pleural effusion and mild, left more than right basilar atelectasis. COPD again suspected. Normal heart size. No pericardial effusion. Nonspecific distal esophageal wall thickening, not excluded for gastroesophageal reflux and/or hiatal hernia, amongst others. Retrocrural lymphadenopathy is new measuring up to 1.6 x 1.1 cm, axial series 2, image 15. ABDOMEN: Small right hepatic lobe calcified granuloma again noted. Otherwise unremarkable liver, spleen, gallbladder, pancreas, adrenals and IVC. Aortic atherosclerotic calcifications and slight saccular infrarenal aortic ectasia/borderline aneurysm again noted measuring up to 2.9 cm AP x 3 cm transverse on axial image 117, series 2. Non-aneurysmal iliac arteries. No ascites. Extensive retroperitoneal adenopathy with largest left para-aortic and retrocaval lymph nodes measuring up to approximately 3 x 1.8 cm as on axial series 2, image 113, amongst others. Opacified GI tract nonobstructive. Bilateral renal cortical enhancement with preserved renal contours. Couple of small, subcentimeter right renal cortical hypodensities are stable. Moderate left and mild right hydronephrosis is new. Dilatation of the proximal to mid ureters bilaterally also noted, though their tracking inferiorly difficult due to nonopacification. Left ureteral transition though suspected along its proximal extent with subtle wall/mucosal enhancement as on axial series 4, images 31-38. PELVIS: A dilated right ureter noted past its crossing the iliac vessels, though caliber transition noted within the right hemipelvis, axial series 4, images 55-60. No radiopaque ureteral calculi noted. Hansen catheter decompresses the urinary bladder with mild exaggerated wall thickness and slight surrounding nonspecific fat stranding. Numerous pelvic phleboliths. Few prostate calcifications. Enlarged prostate creating an impression at the bladder base also suspected. Rectosigmoid stool. Mild presacral fat stranding/density is new. No significant free fluid however. Few new enlarged pelvic lymph nodes noted as approximately 1.3 cm right iliac, axial image 58, series 4. A new right inguinal lymph node also measures 1.2 cm on axial series 4, image 76. Diffuse mixed sclerotic and lytic skeletal heterogeneity representing metastatic disease is new. CONCLUSION: 1. New diffuse skeletal metastatic involvement since December 2013, as described. Prostate cancer may be evaluated for clinically, though underlying primary neoplasm remains unknown at this time. 2. New bilateral hydroureteronephrosis with bilateral ureteral trapping in this patient with extensive new retroperitoneal lymphadenopathy also identified. No radiopaque calculi identified, to the extent assessed. 3. New tiny left pleural effusion and mild bibasilar atelectasis. 4. Interval Hansen catheter placement with exaggerated urinary bladder wall thickness again noted. 5. Various other incidental findings, including COPD, distal esophageal thickening, infrarenal abdominal aortic ectasia/borderline aneurysm and an enlarged prostate again noted. Thank you for the opportunity to participate in this patient's care.
== END 2016-04-13 17:40 | disposition home or self-care (01) | DRG 698 ==
LOC: ED 18:09 → 3A 04-09 02:31
PROVIDERS: ADMIT Internal Medicine; ATTEND Family Medicine
DX: N13.9 Obstructive and reflux uropathy, unspecified (principal); G93.41 Metabolic encephalopathy; N17.9 Acute kidney failure, unspecified; E87.2 Acidosis; N13.30 Unspecified hydronephrosis; E87.5 Hyperkalemia; F10.10 Alcohol abuse, uncomplicated; J44.9 Chronic obstructive pulmonary disease, unspecified; F03.90 Unspecified dementia, unspecified severity, without behavioral disturbance, psychotic disturbance, mood disturbance, and anxiety; F17.210 Nicotine dependence, cigarettes, uncomplicated; F32.9 Major depressive disorder, single episode, unspecified; F20.9 Schizophrenia, unspecified; H54.41 Blindness, right eye, normal vision left eye; G47.00 Insomnia, unspecified; I12.9 Hypertensive chronic kidney disease with stage 1 through stage 4 chronic kidney disease, or unspecified chronic kidney disease; N18.9 Chronic kidney disease, unspecified; D63.1 Anemia in chronic kidney disease; Z79.899 Other long term (current) drug therapy; Z71.6 Tobacco abuse counseling; Z88.0 Allergy status to penicillin; Z85.46 Personal history of malignant neoplasm of prostate
CPT/HCPCS: 36415; 71010; 74177; 76770; 80048; 80053; 80074; 80307; 84153; 84154; 85007; 85025; 85610; 85730; 90686; 90732; 93005; 93010; 96365; 96375; 99406; J1815; J2270; J7030; Q9967

== ENCOUNTER 2016-10-13 14:55 | Inpatient (IN) | payer MEDICARE ==
[2016-10-13] MEDS ORDERED: TYLENOL PO STA (15:13)
[2016-10-13] MEDS ORDERED: NACL 0.9% 500 ML 500 ML IV ONE (15:13)
[2016-10-13] MEDS ORDERED: NACL 0.9% 1000 ML 1,000 ML ONE (15:20)
[2016-10-13] MEDS ORDERED: NACL 0.9% 1000 ML 1,000 ML IV ONE ×4 (15:25→19:40)
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
[2016-10-13] MEDS ORDERED: LEVAQUIN 750MG/150ML 750 MG/150 ML BAG IV ONE (15:26)
[2016-10-13 15:46] LABS: ISTAT Base Excess -2; ISTAT HCO3 23.4; ISTAT PCO2 38.7 (35-45); ISTAT PO2 78 (80-105); ISTAT SO2 95; ISTAT TCO2 25
[2016-10-13] MEDS ORDERED: VANCOMYCIN/NS 1 GM/250 ML 1 GM/250 ML BAG IV ONE (16:02)
[2016-10-13 16:33] LABS: INR 1.13 (0.87-1.13)
[2016-10-13 16:35] LABS: Basophils % (Auto) 0.3 % (0.0-1.8); Eosinophils % (Auto) 0.4 % (0.0-4.3); Hematocrit 22.9 % (35.5-45.6); Hemoglobin 7.4 gm/dl (11.8-15.2); Mean Corpuscular HGB Conc 32 % (32-34); Mean Corpuscular Hemoglobin 26 pg (28-32); Mean Corpuscular Volume 81 fl (84-94); Platelet Count 507 K/mm3 (140-440); Red Blood Count 2.82 M/mm3 (3.65-5.03); White Blood Count 10.1 K/mm3 (4.5-11.0)
[2016-10-13 16:36] LABS: Red Cell Distribution Width 21.4 % (13.2-15.2)
[2016-10-13 16:41] LABS: BUN/Creatinine Ratio 19.16; Bilirubin,Total 0.2 mg/dL (0.1-1.2); Chloride 101.9 mmol/L (98-107); Potassium 4.4 mmol/L (3.6-5.0); Total Protein 6.1 g/dL (6.3-8.2)
[2016-10-13 16:47] LABS: Bilirubin,Urine NEG (Negative); Blood,Urine SM (Negative); Ketones,Urine NEG (Negative); Leukocyte Esterase,Urine MOD (Negative); Mucus,Urine FEW /HPF; Nitrite,Urine NEG (Negative); Protein,Urine <15 mg/dL mg/dL (Negative); Urobilinogen,Urine < 2.0 mg/dL (<2.0)
[2016-10-13] MEDS ORDERED: NACL 0.9% 1000 ML 2,000 ML ONE (19:31)
[2016-10-13] MEDS ORDERED: NON-FORMULARY (Clonazepam [Clonazepam] 1 MG) PO PRN (20:24)
[2016-10-13] MEDS ORDERED: NACL ONE (20:32)
[2016-10-13] MEDS: ROCEPHIN/NS 1 GM/50 ML 1 GM/50 ML BAG IV SCH (20:55)
[2016-10-13] MEDS ORDERED: D5/0.45NS 1,000 ML IV SCH (21:00)
[2016-10-13] MEDS: LOVENOX SUB-Q SCH (21:06)
--- NOTE | 2016-10-13 21:27 | History and Physical Report ---
History of Present Illness Date of examination: 10/13/16 Date of admission: 10/13/2016 Chief complaint: Cough fever and weakness today duration History of present illness: Patient is a 71-year-old gentleman who has a history of prostate cancer, chronic tobacco use disorder, bipolar disorder, and idiopathic peripheral neuropathy who presented to the emergency department on account of cough with fever 101.8. Past 2 days ago. Cough was nonproductive. Denies any chest pain. No shortness of breath. No nausea no vomiting. Denies any dysuria. Chest x-ray reviewed by me showed infiltrates in the right lung with possible nodules suggestive of metastasis. Of note the patient has a history of prostate cancer. CT scan chest x-ray reports to the emergency department pending. Patient was feeling very weak and lethargic. Had oxygen via facemask emergency department. Patient was therefore requested. Past History Past Medical History: COPD, hypertension, hyperlipidemia Past Surgical History: TURP Social history: smoking. denies: alcohol abuse, prescription drug abuse Family history: denies: hypertension, stroke Medications and Allergies Allergies Allergy/AdvReac Type Severity Reaction Status Date / Time Penicillins Allergy Unknown Verified 12/17/13 22:08 Home Medications Medication Instructions Recorded Confirmed Last Taken Type Disulfiram (Nf) [Antabuse (Nf)] 250 mg PO DAILY 04/09/16 05/02/16 04/29/16 History Temazepam [Restoril] 15 mg PO HS #30 capsule 04/12/16 05/02/16 1 Month Ago Rx risperiDONE [RisperDAL] 0.5 mg PO QHS #30 tablet 04/12/16 05/02/16 05/01/16 Rx Ciprofloxacin HCl 500 mg PO BID 10/13/16 10/13/16 Unknown History Combivent Respimat 10/13/16 Unknown History Gabapentin [Neurontin] 300 mg PO TID 10/13/16 10/13/16 Unknown History Mirtazapine [Remeron] 45 mg PO QHS 10/13/16 10/13/16 Unknown History Omeprazole 20 mg PO DAILY 10/13/16 10/13/16 Unknown History ProAir HFA Inhaler 10/13/16 Unknown History QUEtiapine 100 mg PO QHS 10/13/16 10/13/16 Unknown History Sertraline HCl [Zoloft] 50 mg PO DAILY 10/13/16 10/13/16 Unknown History Tizanidine HCl [tiZANidine] 2 mg PO BID 10/13/16 10/13/16 Unknown History clonazePAM 1 mg PO DAILY PRN 10/13/16 10/13/16 Unknown History traMADol [Ultram 50 MG tab] 50 mg PO TID 10/13/16 10/13/16 Unknown History Active Meds: Active Medications Albuterol/Ipratropium (Duoneb *Not For Prn Use*) 1 ampul IH TIDRT [facility] Clonazepam (Klonopin) 1 mg PO DAILY PRN PRN Reason: anxiety Enoxaparin Sodium (Lovenox) 40 mg SUB-Q QDAY [facility] Last Admin: 10/13/16 21:06 Dose: 40 mg Gabapentin (Neurontin) 300 mg PO TID [facility] Sodium Chloride (Nacl 0.9% 1000 Ml) 1,000 mls @ 150 mls/hr IV ONCE ONE Stop: 10/14/16 02:19 Last Admin: 10/13/16 19:48 Dose: 150 mls/hr Azithromycin 500 mg/ Sodium (Chloride) 250 mls @ 250 mls/hr IV Q24H [facility] PRN Reason: Protocol Ceftriaxone Sodium (Rocephin/Ns 1 Gm/50 Ml) 1 gm in 50 mls @ 100 mls/hr IV Q24H [facility] PRN Reason: Protocol Last Admin: 10/13/16 20:55 Dose: 100 mls/hr Dextrose/Sodium Chloride (D5/0.45ns) 1,000 mls @ 125 mls/hr IV DIRECT [facility] Mirtazapine (Remeron) 45 mg PO QHS [facility] Quetiapine Fumarate (Seroquel) 100 mg PO QHS [facility] Risperidone (Risperdal) 0.5 mg PO QHS [facility] Sertraline HCl (Zoloft) 50 mg PO QDAY [facility] Review of systems Constitutional: Well Nouridhed and Well developed. Head: NC/ AT Eyes: Denies any visual impairments. No discharge from the eyes Nose: Denies any rhinorrhea or epistaxis Throats: Denies any post nasal drainage. Ears: Denies any hearing deficits Cardiovascular system: Denies any chest pain, shortness of breath, orthopnea, paroxysmal nocturnal dyspnea, or palpitation. Respiratory system: Has cough cough, difficulty breathing, no wheezing, pleuritic chest pain, Gastrointestinal system: Denies any abdominal pain, nausea vomiting, hematemesis or melena. Neurological system: Denies any headache, slurred speech, facial droop, lateralizing weakness Genitalia system: Denies any dysuria, urinary frequency or urgency, urethral discharge Skin: No rashes, hyperpigmented spots. Hematological: Denies any cervical tenderness hemorrhages or petechia. Immunological: Denies any multiple septic spots, Lymphatic: Denies any generalized lymphadenopathy. Endocrine: Denies any polyuria, polydipsia, polyphagia. No heat or cold intolerance. Musculoskeletal system: No joint pain or swelling. Psych: No visual, tactile, auditory or hallucination Exam - Constitutional Vitals: Temp Pulse Resp BP Pulse Ox 98.9 F 75 12 86/44 100 10/13/16 18:10 10/13/16 20:10 10/13/16 20:10 10/13/16 20:10 10/13/16 20:10 General appearance: Present: mild distress, other (blind on the left eye) - EENT Eyes: Present: PERRL - Neck Neck: Present: supple, normal ROM - Respiratory Respiratory effort: normal Respiratory: right: rales, bilateral: diminished - Cardiovascular Heart Sounds: Present: S1 & S2. Absent: rub, click - Extremities Extremities: pulses symmetrical, No edema Peripheral Pulses: within normal limits - Abdominal General gastrointestinal: Present: soft, non-tender, non-distended, normal bowel sounds - Integumentary Integumentary: Present: clear, warm, dry - Musculoskeletal Musculoskeletal: gait normal, strength equal bilaterally - Psychiatric Psychiatric: appropriate mood/affect, intact judgment & insight - Neurologic Neurologic: CNII-XII intact, moves all extremities Results - Labs CBC & Chem 7: 10/13/16 15:25 10/13/16 15:25 Labs: Abnormal lab results 10/13/16 10/13/16 10/13/16 Range/Units 15:25 15:25 15:25 RBC 2.82 L (3.65-5.03) M/mm3 Hgb 7.4 L (11.8-15.2) gm/dl Hct 22.9 L (35.5-45.6) % MCV 81 L (84-94) fl MCH 26 L (28-32) pg RDW 21.4 H (13.2-15.2) % Plt Count 507 H (140-440) K/mm3 Lymph % (Auto) 11.7 L (13.4-35.0) % Seg Neutrophils % 83.3 H (40.0-70.0) % Seg Neutrophils # 8.4 H (1.8-7.7) K/mm3 PT 15.1 H (12.2-14.9) Sec. POC ABG pO2 (80-105) VBG pH (7.320-7.420) BUN 23 H (9-20) mg/dL Lactic Acid (0.7-2.0) mmol/L Calcium 8.0 L (8.4-10.2) mg/dL Alkaline Phosphatase 1088 H (35-129) units/L Total Protein 6.1 L (6.3-8.2) g/dL Albumin 3.0 L (3.9-5) g/dL Urine WBC (Auto) (0.0-6.0) /HPF 10/13/16 10/13/16 10/13/16 Range/Units 15:25 15:25 15:26 RBC (3.65-5.03) M/mm3 Hgb (11.8-15.2) gm/dl Hct (35.5-45.6) % MCV (84-94) fl MCH (28-32) pg RDW (13.2-15.2) % Plt Count (140-440) K/mm3 Lymph % (Auto) (13.4-35.0) % Seg Neutrophils % (40.0-70.0) % Seg Neutrophils # (1.8-7.7) K/mm3 PT (12.2-14.9) Sec. POC ABG pO2 (80-105) VBG pH 7.282 L (7.320-7.420) BUN (9-20) mg/dL Lactic Acid 2.20 H* (0.7-2.0) mmol/L Calcium (8.4-10.2) mg/dL Alkaline Phosphatase (35-129) units/L Total Protein (6.3-8.2) g/dL Albumin (3.9-5) g/dL Urine WBC (Auto) 17.0 H (0.0-6.0) /HPF 10/13/16 Range/Units 15:40 RBC (3.65-5.03) M/mm3 Hgb (11.8-15.2) gm/dl Hct (35.5-45.6) % MCV (84-94) fl MCH (28-32) pg RDW (13.2-15.2) % Plt Count (140-440) K/mm3 Lymph % (Auto) (13.4-35.0) % Seg Neutrophils % (40.0-70.0) % Seg Neutrophils # (1.8-7.7) K/mm3 PT (12.2-14.9) Sec. POC ABG pO2 78 L (80-105) VBG pH (7.320-7.420) BUN (9-20) mg/dL Lactic Acid (0.7-2.0) mmol/L Calcium (8.4-10.2) mg/dL Alkaline Phosphatase (35-129) units/L Total Protein (6.3-8.2) g/dL Albumin (3.9-5) g/dL Urine WBC (Auto) (0.0-6.0) /HPF - Imaging and Cardiology EKG: report reviewed Assessment and Plan - Right lobar pneumonia - Possible metastatic disease due to long - Sepsis - Prostate cancer - Toxic encephalopathy as patient is mildly disoriented - Anemia Plan Follow up with the culture results Obtain CT scan of the chest Commence IV ceftriaxone and azithromycin IV hydration Anemia w/u PSA DVT prophylaxis with Lovenox and GI prophylaxis with Pepcid Spent over 30 minutes during this admission process and direct patient care, review of laboratory data, explanation of the same to the patient who though lethergic was able to answer questions
[2016-10-13] MEDS ORDERED: NON-FORMULARY (Mirtazapine [Remeron] 45 MG) PO SCH (22:00)
[2016-10-13] MEDS ORDERED: NON-FORMULARY (Quetiapine 100 MG) PO SCH (22:00)
--- NOTE | 2016-10-13 22:04 | Cat Scan Report ---
FINAL REPORT EXAM: CT CHEST WO/W CON HISTORY: pneumonia COMPARISON: None available. TECHNIQUE: Contiguous axial images were obtained. Additional sagittal and coronal reformatted images were obtained. Administration of IV contrast given per institution protocol. Images submitted for interpretation. 100 cc Isovue 300. FINDINGS: Heart upper limits of normal in size. Descending thoracic aorta measures 3 centimeters in diameter, upper limits normal. No dissection. Moderate calcified plaque along the thoracic aorta. Moderate coronary artery calcification. No pulmonary embolus. Patchy airspace consolidations with septal thickening throughout the right lung. This slight nodular appearance of patchy consolidations within the right upper lobe right middle lobe. More dense consolidation right lower lobe. Small bilateral pleural effusions. Diffuse bronchial wall thickening. No obstructive lesion within the tracheobronchial tree. Enlarged right hilar mediastinal lymph nodes suspected to be reactive. Neoplastic process less likely. There are few prominent but technically not enlarged axillary lymph nodes. Remote left-sided rib fractures. Diffuse patchy sclerosis and areas of lucency throughout the bony thorax. Mild anterior wedging of mid thoracic vertebral bodies which appears to be chronic. There is motion artifact through the mid sternum and anterior ribs at that level secondary to patient motion artifact. Moderate dilatation of left renal pelvis and proximal ureter. Prominent vessels versus enlarged lymph nodes along the left retroperitoneum. IMPRESSION: Patchy airspace consolidations throughout the right lung which have a slightly nodular appearance. There is associated septal thickening with more dense consolidation right lower lobe. Small bilateral pleural effusions. Findings are most concerning for pneumonia involving the right lung. Mild superimposed edema cannot be excluded. Borderline to mildly enlarged intrathoracic lymph nodes suspected to be reactive. No pulmonary embolus. Remote left-sided rib fractures. Diffuse sclerosis and lucency throughout the visualized bony thorax. Could relate to renal osteodystrophy. Neoplastic process such as multiple myeloma or diffuse osseous metastatic disease can't be excluded. Moderate dilatation visualized left renal pelvis and proximal ureter of uncertain etiology.
[2016-10-13] MEDS: ZOLOFT PO SCH (22:10)
[2016-10-13] MEDS: ZITHROMAX 500 MG in NACL 0.9% 250ML 250 ML IV SCH (22:11)
[2016-10-13] MEDS: RisperDAL PO SCH (22:11)
[2016-10-13] MEDS: D5/0.45NS 1,000 ML IV SCH (22:11)
[2016-10-13] MEDS: REMERON PO SCH (22:41)
[2016-10-14 03:10] LABS: Iron 31 ug/dL (49-181); Total Iron Binding Capacity 136 mcg/dL (250-450)
[2016-10-14 06:58] LABS: Basophils % (Auto) 0.5 % (0.0-1.8); Eosinophils % (Auto) 0.2 % (0.0-4.3); Hemoglobin 6.4 gm/dl (11.8-15.2); Mean Corpuscular HGB Conc 32 % (32-34); Mean Corpuscular Hemoglobin 27 pg (28-32); Mean Corpuscular Volume 82 fl (84-94); Platelet Count 410 K/mm3 (140-440); Red Blood Count 2.42 M/mm3 (3.65-5.03)
[2016-10-14 06:59] LABS: Hematocrit 19.9 % (35.5-45.6)
[2016-10-14] MEDS: DUONEB *Not for PRN Use IH SCH ×3 (07:52→20:10)
[2016-10-14] MEDS: NEURONTIN PO SCH ×3 (08:00→20:51)
[2016-10-14 08:28] LABS: Alanine Aminotransferase 10 units/L (7-56); Albumin 2.1 g/dL (3.9-5); Albumin/Globulin Ratio 0.6 %; Alkaline Phosphatase 852 units/L (35-129); Anion Gap 17 mmol/L; Blood Urea Nitrogen 20 mg/dL (9-20); Calcium 7.7 mg/dL (8.4-10.2); Carbon Dioxide 20 mmol/L (22-30); Chloride 110.5 mmol/L (98-107); Glucose 90 mg/dL (75-100); Potassium 3.7 mmol/L (3.6-5.0); Sodium 144 mmol/L (137-145); Total Protein 5.5 g/dL (6.3-8.2)
--- NOTE | 2016-10-14 09:27 | XRay Report ---
AP CHEST :10/13/16 14:55:00 CLINICAL: Sepsis. COMPARISON:04/09/16 FINDINGS: Extensive opacification of the right hemithorax with patchy opacities in the upper lobe and lower lobe. The left lung is normally expanded and clear. Normal heart and pulmonary vessels. Multiple old left rib fractures as seen on the prior exam. IMPRESSION: Extensive right pneumonia with involvement of the upper lobe and lower lobe. Recommend followup to resolution since lung tumor cannot be excluded as a possibility.
[2016-10-14] MEDS: ZOLOFT PO SCH (12:02)
[2016-10-14] MEDS: LOVENOX SUB-Q SCH (12:02)
[2016-10-14] MEDS: ULTRAM PO PRN ×2 (13:10→21:54)
--- NOTE | 2016-10-14 14:00 | Progress Note ---
Assessment and Plan Assessment and plan: Patient is a 71-year-old gentleman who has a history of prostate cancer, chronic tobacco use disorder, bipolar disorder, and idiopathic peripheral neuropathy who presented to the emergency department on account of cough with fever 101.8. Past 2 days ago. Cough was nonproductive. Denies any chest pain. No shortness of breath. No nausea no vomiting. Denies any dysuria. Chest x-ray reviewed by me showed infiltrates in the right lung with possible nodules suggestive of metastasis. Of note the patient has a history of prostate cancer. CT scan chest x-ray reports to the emergency department pending. Patient was feeling very weak and lethargic. Had oxygen via facemask emergency department. Patient was therefore requested. - Right lobar pneumonia - Possible metastatic disease due to Prostrate CA - Sepsis - Prostate cancer - Toxic encephalopathy as patient is mildly disoriented - Anemia secondary to malignancy - Moderate Protien calorie Malnutrition - Acute cystitis - Elevated Alk Phos. Plan Continue abx with IV ceftriaxone and Azithromycin Call placed to family to better understand the cancer treatment plan for patient , he states he has not been started on treatment Follow up with the culture results Obtain CT scan of the abdomen and plevis to better evaluate for mets Commence IV ceftriaxone and azithromycin IV hydration Transfuse 1 PRBC DVT prophy with SCD due to anemia. pLAN OF CARE DISCUSSED WITH PATIENT Bank Cashier farhat. History Interval history: Patient seen and examined today reports mild improvement of symptoms. Still with persistent cough, nonproductive Hospitalist Physical - Physical exam Narrative exam: VITAL SIGNS: Reviewed. GENERAL: The patient appeared well cachectic lethargic vital signs as documented. HEAD: No signs of head trauma. Marked temporal wasting EYES: Pupils are equal. Extraocular motions intact. Patch over right eye EARS: Hearing grossly intact. MOUTH: Oropharynx is normal. NECK: No adenopathy, no JVD. CHEST: Chest with clear breath sounds bilaterally. No wheezes, rales, or rhonchi. CARDIAC: Regular rate and rhythm. S1 and S2, without murmurs, gallops, or rubs. VASCULAR: No Edema. Peripheral pulses normal and equal in all extremities. ABDOMEN: Soft, without detectable tenderness. No sign of distention. No rebound or guarding, and no masses palpated. Bowel Sounds normal. MUSCULOSKELETAL: Good range of motion of all major joints. Extremities without clubbing, cyanosis or edema. NEUROLOGIC EXAM: Alert and oriented x 3. No focal sensory or strength deficits. Speech normal. Follows commands. PSYCHIATRIC: Mood normal. SKIN: No rash or lesions. - Constitutional Vitals: Temp Pulse Resp BP Pulse Ox 99.0 F 101 H 20 98/53 96 10/14/16 12:00 10/14/16 12:00 10/14/16 13:10 10/14/16 12:00 10/14/16 12:00 General appearance: Present: mild distress, other (blind on the left eye) Results - Labs CBC & Chem 7: 10/14/16 Unknown 10/14/16 07:10 Labs: Laboratory Last Values WBC 9.0 K/mm3 (4.5-11.0) 10/14/16 Unknown RBC 2.42 M/mm3 (3.65-5.03) L 10/14/16 Unknown Hgb 6.4 gm/dl (11.8-15.2) L 10/14/16 Unknown Hct 19.9 % (35.5-45.6) L* 10/14/16 Unknown MCV 82 fl (84-94) L 10/14/16 Unknown MCH 27 pg (28-32) L 10/14/16 Unknown MCHC 32 % (32-34) 10/14/16 Unknown RDW 22.0 % (13.2-15.2) H 10/14/16 Unknown Plt Count 410 K/mm3 (140-440) 10/14/16 Unknown Lymph % (Auto) 10.9 % (13.4-35.0) L 10/14/16 Unknown [place] % (Auto) 4.2 % (0.0-7.3) 10/14/16 Unknown Eos % (Auto) 0.2 % (0.0-4.3) 10/14/16 Unknown Baso % (Auto) 0.5 % (0.0-1.8) 10/14/16 Unknown Lymph # 1.0 K/mm3 (1.2-5.4) L 10/14/16 Unknown [place] # 0.4 K/mm3 (0.0-0.8) 10/14/16 Unknown Eos # 0.0 K/mm3 (0.0-0.4) 10/14/16 Unknown Baso # 0.0 K/mm3 (0.0-0.1) 10/14/16 Unknown Seg Neutrophils % 84.2 % (40.0-70.0) H 10/14/16 Unknown Seg Neutrophils # 7.6 K/mm3 (1.8-7.7) 10/14/16 Unknown PT 15.1 Sec. (12.2-14.9) H 10/13/16 15:25 INR 1.13 (0.87-1.13) 10/13/16 15:25 POC ABG pH 7.390 (7.35-7.45) 10/13/16 15:40 POC ABG pCO2 38.7 (35-45) 10/13/16 15:40 POC ABG pO2 78 (80-105) L 10/13/16 15:40 POC ABG HCO3 23.4 10/13/16 15:40 POC ABG Total CO2 25 10/13/16 15:40 POC ABG O2 Sat 95 10/13/16 15:40 POC ABG Base Excess -2 10/13/16 15:40 VBG pH 7.282 (7.320-7.420) L 10/13/16 15:25 FiO2 50 % 10/13/16 15:40 Sodium 144 mmol/L (137-145) 10/14/16 07:10 Potassium 3.7 mmol/L (3.6-5.0) 10/14/16 07:10 Chloride 110.5 mmol/L (98-107) H 10/14/16 07:10 Carbon Dioxide 20 mmol/L (22-30) L 10/14/16 07:10 Anion Gap 17 mmol/L 10/14/16 07:10 BUN 20 mg/dL (9-20) 10/14/16 07:10 Creatinine 0.8 mg/dL (0.8-1.5) 10/14/16 07:10 Estimated GFR > 60 ml/min 10/14/16 07:10 BUN/Creatinine Ratio 25.00 % 10/14/16 07:10 Glucose 90 mg/dL (75-100) 10/14/16 07:10 Lactic Acid 1.00 mmol/L (0.7-2.0) 10/14/16 07:10 Calcium 7.7 mg/dL (8.4-10.2) L 10/14/16 07:10 Iron 31 ug/dL (49-181) L 10/14/16 00:05 TIBC 136 mcg/dL (250-450) L 10/14/16 00:05 Total Bilirubin 0.20 mg/dL (0.1-1.2) 10/14/16 07:10 AST 25 units/L (5-40) 10/14/16 07:10 ALT 10 units/L (7-56) 10/14/16 07:10 Alkaline Phosphatase 852 units/L (35-129) H 10/14/16 07:10 Total Protein 5.5 g/dL (6.3-8.2) L 10/14/16 07:10 Albumin 2.1 g/dL (3.9-5) L 10/14/16 07:10 Albumin/Globulin Ratio 0.6 % 10/14/16 07:10 Prostate Specific Ag 100.00 ng/mL (0.00-4.00) H 10/13/16 22:45 Vitamin B12 443.6 pg/mL (211-911) 10/13/16 22:45 Urine Color Yellow (Yellow) 10/13/16 15:26 Urine Turbidity Clear (Clear) 10/13/16 15:26 Urine pH 6.0 (5.0-7.0) 10/13/16 15:26 Ur Specific [place] 1.011 (1.003-1.030) 10/13/16 15:26 Urine Protein <15 mg/dl mg/dL (Negative) 10/13/16 15:26 Urine Glucose (UA) Neg mg/dL (Negative) 10/13/16 15:26 Urine Ketones Neg mg/dL (Negative) 10/13/16 15:26 Urine Blood Sm (Negative) 10/13/16 15:26 Urine Nitrite Neg (Negative) 10/13/16 15:26 Urine Bilirubin Neg (Negative) 10/13/16 15:26 Urine Urobilinogen < 2.0 mg/dL (<2.0) 10/13/16 15:26 Ur Leukocyte Esterase Mod (Negative) 10/13/16 15:26 Urine WBC (Auto) 17.0 /HPF (0.0-6.0) H 10/13/16 15:26 Urine RBC (Auto) 2.0 /HPF (0.0-6.0) 10/13/16 15:26 U Epithel Cells (Auto) < 1.0 /HPF (0-13.0) 10/13/16 15:26 Urine Mucus Few /HPF 10/13/16 15:26 - Imaging and Cardiology CT scan - chest: image reviewed (reactive lymph nodes noted)
[2016-10-14] MEDS ORDERED: NACL 0.9% 500 ML 500 ML IV SCH (15:00)
[2016-10-14] MEDS ORDERED: NACL 0.9% 250ML 250 ML ONE (17:22)
[2016-10-14] MEDS ORDERED: TYLENOL PO ONE (19:00)
[2016-10-14] MEDS: ROCEPHIN/NS 1 GM/50 ML 1 GM/50 ML BAG IV SCH (20:50)
[2016-10-14] MEDS: RisperDAL PO SCH (21:54)
[2016-10-14] MEDS: REMERON PO SCH (21:54)
[2016-10-14] MEDS: ZITHROMAX 500 MG in NACL 0.9% 250ML 250 ML IV SCH (21:56)
[2016-10-15] MEDS: D5/0.45NS 1,000 ML IV SCH ×2 (00:36→08:42)
[2016-10-15 05:13] LABS: Alanine Aminotransferase 11 units/L (7-56); Albumin 2.3 g/dL (3.9-5); Albumin/Globulin Ratio 0.7 %; Alkaline Phosphatase 751 units/L (35-129); Anion Gap 17 mmol/L; Bilirubin,Total < 0.20 mg/dL (0.1-1.2); Blood Urea Nitrogen 14 mg/dL (9-20); Calcium 7.8 mg/dL (8.4-10.2); Carbon Dioxide 21 mmol/L (22-30); Glucose 103 mg/dL (75-100); Potassium 3.1 mmol/L (3.6-5.0); Sodium 140 mmol/L (137-145); Total Protein 5.6 g/dL (6.3-8.2)
[2016-10-15 05:19] LABS: Basophils % (Auto) 0.4 % (0.0-1.8); Eosinophils % (Auto) 0.9 % (0.0-4.3); Hemoglobin 6.3 gm/dl (11.8-15.2); Mean Corpuscular HGB Conc 34 % (32-34); Mean Corpuscular Hemoglobin 27 pg (28-32); Mean Corpuscular Volume 81 fl (84-94); Platelet Count 315 K/mm3 (140-440); Red Blood Count 2.35 M/mm3 (3.65-5.03); White Blood Count 8.5 K/mm3 (4.5-11.0)
[2016-10-15 05:20] LABS: Red Cell Distribution Width 20.1 % (13.2-15.2)
[2016-10-15 05:21] LABS: Hematocrit 18.9 % (35.5-45.6)
[2016-10-15] MEDS: RisperDAL PO SCH (07:00)
[2016-10-15] MEDS ORDERED: NACL 0.9% 500 ML 500 ML IV ONE (08:14)
[2016-10-15] MEDS: DUONEB *Not for PRN Use IH SCH ×4 (08:17→20:38)
[2016-10-15] MEDS ORDERED: LASIX IV ONE ×2 (08:44→09:00)
--- NOTE | 2016-10-15 09:38 | Admit Criteria Form ---
Admission Criteria Documentation: PNEUMONIA, COMMUNITY ACQUIRED Clinical Indications for Admission to Inpatient Care (Place ' X' for any and all applicable criteria): Admission to inpatient status for two midnights or more is indicated for ANY ONE of the following (1)(2)(3): [X ]I. Hypoxia [X ]II. Hemodynamic instability [ ]III. Altered mental status that is severe or persistent [ ]IV. Dehydration that is severe or persistent. [ ]V. Bacteremia [ ]. Moderate-risk or high-risk category patients (Pneumonia Severity Index ( PSI) class IV or V, or CURB-65 score of 3 or greater). [ ]VII. Intermediate-risk category patients (e.g., PSI class III or CURB-65 score 2) who do not improve with outpatient and observation care treatment [ ]VIII. Outpatient treatment failure as indicated by 1 or more of the following(9): [ ]a) Failure to respond to antibiotic (eg, resistant organism) [ ]b) Clinically significant adverse effects from medication (eg, vomiting) [ ]c) Complications of pneumonia (eg, empyema, bacteremia) [ ]d) Significant worsening of comorbid cond necessitating inpatient care (eg, chronic heart failure) [ ]IX. Appropriate diagnostic testing and treatment unavailable in outpatient or recovery facility (eg, testing or infection control measures unavailable) [ ]X. Respiratory finding (eg. tachypnea) that do not respond to outpatient observation care treatment [ ]XI. Complicated pleural effusions (eg, emphysema, exudative, loculated) [ ]XII. Immunocompromised patients (e.g., AIDS, chronic steroid use) at moderate or high risk based on clinical evaluation. Extended stay beyond goal length of stay may be needed for (20) [ ]a) Unclear diagnosis [ ]b) Pleural disease [ ]c) Severe pneumonia or treatment failure [ ]d) Respiratory failure [ ]e) New onset hyponatremia (serum Na concentration less than 135 mEq/L(mmol/ L) [ ]f) Clinically significant comorbid illness (eg, heart failure, atrial fibrillation with rapid heart rate, alcohol withdrawal, renal insufficiency)(34)(35) [ ]g) Comorbid acute exacerbation of COPD(36) [ ]h) Concomitant diagnosis of malignancy [ ]i) Concomitant altered mental status [ ]j) Culture-identified Gram-negative or antibiotic-resistant organism (eg, Pseudomonas, methicillin-resistant Staphylococcus aureus MRSA)(30) [ ]k) Healthcare-associated pneumonia (36) The original [facility] content created by [facility] [employer] has been revised. The portions of the content which have been revised are identified through the use of italic text or in bold, and [facility] has neither reviewed nor approved the modified material. All other unmodified content is copyright [facility] [employer]. Please see references footnoted in the original [facility] [employer] edition 2016 Admission Criteria Met: Yes
[2016-10-15] MEDS: NEURONTIN PO SCH ×3 (11:16→20:23)
--- NOTE | 2016-10-15 12:05 | Cat Scan Report ---
CT scan of abdomen and pelvis without and with IV contrast: History: Metastatic prostate cancer. Findings: Bilateral pleural effusion being more pronounced on the right side. Adjacent compressive atelectasis right lung. Ill-defined opacity right lower lobe probably suggestive pneumonitis. No pericardial effusion. Normal liver spleen pancreas and gallbladder. Normal adrenals. There is dilatation noted of the right and left ureter due to distal obstruction. Obstruction appears to be at the level of the bladder. Bladder wall thickening. This may be due to inadequate distention or cystitis among others. In situ Hansen catheter. No free intraperitoneal fluid or air. No evidence of adenopathy. Calcified abdominal aorta with maximum diameter of 3 cm. Moderate amount of air in small and large bowel. No evidence of obstruction. No evidence of appendicitis or diverticulitis. Extensive metastatic disease involving the bones. Impression: Bilateral pleural effusion with infiltrate right lower lobe. Bilateral dilated ureters probably related to distal obstruction at the level of the bladder. Extensive bony metastasis.
[2016-10-15] MEDS ORDERED: NACL ONE (12:08)
[2016-10-15] MEDS: ZOLOFT PO SCH (13:00)
[2016-10-15] MEDS ORDERED: VANCOMYCIN VIAL IV ONE (14:59)
[2016-10-15] MEDS ORDERED: NACL 0.9% 500 ML 500 ML IV SCH (15:00)
[2016-10-15] MEDS ORDERED: K-DUR PO ONE (15:00)
[2016-10-15] MEDS ORDERED: VANCOMYCIN PHARMACY TO DOSE IV SCH ×2 (15:00)
--- NOTE | 2016-10-15 15:07 | Progress Note ---
Assessment and Plan Assessment and plan: Patient is a 71-year-old gentleman who has a history of prostate cancer, chronic tobacco use disorder, bipolar disorder, and idiopathic peripheral neuropathy who presented to the emergency department on account of cough with fever 101.8. Past 2 days ago. Cough was nonproductive. Denies any chest pain. No shortness of breath. No nausea no vomiting. Denies any dysuria. Chest x-ray reviewed by me showed infiltrates in the right lung with possible nodules suggestive of metastasis. Of note the patient has a history of prostate cancer. CT scan chest x-ray reports to the emergency department pending. Patient was feeling very weak and lethargic. Had oxygen via facemask emergency department. Patient was therefore requested. - Right lobar pneumonia - Bilateral pleural effusion-small per imaging - Extensive mohamud mets - Sepsis - Prostate cancer - Bilateral hydronephrosis - Toxic encephalopathy-down to baseline - Anemia secondary to malignancy - Moderate Protien calorie Malnutrition - Acute cystitis - Elevated Alk Phos. Plan Change to vanc and rocephin. Discontinue azithromycin Still waiting call FROM to better understand the cancer treatment plan for patient, he states he has not been started on treatment Follow up with the culture results Consult hemonc and urology. Hold IVF due to respiratory distress this am Give additional 1 PRBC AND reasses DVT prophy with SCD due to anemia. pLAN OF CARE DISCUSSED WITH PATIENT Associate Justice farhat. History Interval history: Patient seen and examined today reports, with worsened cough today, non productive, fever later in the day per nursing. Hospitalist Physical - Physical exam Narrative exam: VITAL SIGNS: Reviewed. GENERAL: The patient appeared well cachectic lethargic vital signs as documented. HEAD: No signs of head trauma. Marked temporal wasting EYES: Pupils are equal. Extraocular motions intact. Patch over right eye EARS: Hearing grossly intact. MOUTH: Oropharynx is normal. NECK: No adenopathy, no JVD. CHEST: Chest with crackles breath sounds bilaterally. No wheezes, rales, or rhonchi. CARDIAC: Regular rate and rhythm. S1 and S2, without murmurs, gallops, or rubs. VASCULAR: No Edema. Peripheral pulses normal and equal in all extremities. ABDOMEN: Soft, without detectable tenderness. No sign of distention. No rebound or guarding, and no masses palpated. Bowel Sounds normal. MUSCULOSKELETAL: Good range of motion of all major joints. Extremities without clubbing, cyanosis or edema. NEUROLOGIC EXAM: Alert and oriented x 3. No focal sensory or strength deficits. Speech normal. Follows commands. PSYCHIATRIC: Mood normal. SKIN: No rash or lesions. - Constitutional Vitals: Temp Pulse Resp BP Pulse Ox 99.3 F 105 H 20 106/46 100 10/15/16 10:00 10/15/16 10:00 10/15/16 10:00 10/15/16 10:00 10/15/16 10:00 General appearance: Present: mild distress, other (blind on the left eye) Results - Labs CBC & Chem 7: 10/15/16 04:00 10/15/16 04:00 Labs: Laboratory Last Values WBC 8.5 K/mm3 (4.5-11.0) 10/15/16 04:00 RBC 2.35 M/mm3 (3.65-5.03) L 10/15/16 04:00 Hgb 6.3 gm/dl (11.8-15.2) L 10/15/16 04:00 Hct 18.9 % (35.5-45.6) L* 10/15/16 04:00 MCV 81 fl (84-94) L 10/15/16 04:00 MCH 27 pg (28-32) L 10/15/16 04:00 MCHC 34 % (32-34) 10/15/16 04:00 RDW 20.1 % (13.2-15.2) H 10/15/16 04:00 Plt Count 315 K/mm3 (140-440) 10/15/16 04:00 Lymph % (Auto) 8.9 % (13.4-35.0) L 10/15/16 04:00 [place] % (Auto) 3.0 % (0.0-7.3) 10/15/16 04:00 Eos % (Auto) 0.9 % (0.0-4.3) 10/15/16 04:00 Baso % (Auto) 0.4 % (0.0-1.8) 10/15/16 04:00 Lymph # 0.8 K/mm3 (1.2-5.4) L 10/15/16 04:00 [place] # 0.3 K/mm3 (0.0-0.8) 10/15/16 04:00 Eos # 0.1 K/mm3 (0.0-0.4) 10/15/16 04:00 Baso # 0.0 K/mm3 (0.0-0.1) 10/15/16 04:00 Seg Neutrophils % 86.8 % (40.0-70.0) H 10/15/16 04:00 Seg Neutrophils # 7.4 K/mm3 (1.8-7.7) 10/15/16 04:00 PT 15.1 Sec. (12.2-14.9) H 10/13/16 15:25 INR 1.13 (0.87-1.13) 10/13/16 15:25 POC ABG pH 7.390 (7.35-7.45) 10/13/16 15:40 POC ABG pCO2 38.7 (35-45) 10/13/16 15:40 POC ABG pO2 78 (80-105) L 10/13/16 15:40 POC ABG HCO3 23.4 10/13/16 15:40 POC ABG Total CO2 25 10/13/16 15:40 POC ABG O2 Sat 95 10/13/16 15:40 POC ABG Base Excess -2 10/13/16 15:40 VBG pH 7.282 (7.320-7.420) L 10/13/16 15:25 FiO2 50 % 10/13/16 15:40 Sodium 140 mmol/L (137-145) 10/15/16 04:00 Potassium 3.1 mmol/L (3.6-5.0) L 10/15/16 04:00 Chloride 105.0 mmol/L (98-107) 10/15/16 04:00 Carbon Dioxide 21 mmol/L (22-30) L 10/15/16 04:00 Anion Gap 17 mmol/L 10/15/16 04:00 BUN 14 mg/dL (9-20) 10/15/16 04:00 Creatinine 0.7 mg/dL (0.8-1.5) L 10/15/16 04:00 Estimated GFR > 60 ml/min 10/15/16 04:00 BUN/Creatinine Ratio 20.00 % 10/15/16 04:00 Glucose 103 mg/dL (75-100) H 10/15/16 04:00 Lactic Acid 1.80 mmol/L (0.7-2.0) 10/15/16 08:05 Calcium 7.8 mg/dL (8.4-10.2) L 10/15/16 04:00 Iron 31 ug/dL (49-181) L 10/14/16 00:05 TIBC 136 mcg/dL (250-450) L 10/14/16 00:05 Ferritin 1087.0 ng/mL (13.0-400.0) H 10/15/16 04:00 Total Bilirubin < 0.20 mg/dL (0.1-1.2) 10/15/16 04:00 AST 20 units/L (5-40) 10/15/16 04:00 ALT 11 units/L (7-56) 10/15/16 04:00 Alkaline Phosphatase 751 units/L (35-129) H 10/15/16 04:00 Total Protein 5.6 g/dL (6.3-8.2) L 10/15/16 04:00 Albumin 2.3 g/dL (3.9-5) L 10/15/16 04:00 Albumin/Globulin Ratio 0.7 % 10/15/16 04:00 Prostate Specific Ag 100.00 ng/mL (0.00-4.00) H 10/13/16 22:45 Vitamin B12 443.6 pg/mL (211-911) 10/13/16 22:45 Urine Color Yellow (Yellow) 10/13/16 15:26 Urine Turbidity Clear (Clear) 10/13/16 15:26 Urine pH 6.0 (5.0-7.0) 10/13/16 15:26 Ur Specific [place] 1.011 (1.003-1.030) 10/13/16 15:26 Urine Protein <15 mg/dl mg/dL (Negative) 10/13/16 15:26 Urine Glucose (UA) Neg mg/dL (Negative) 10/13/16 15:26 Urine Ketones Neg mg/dL (Negative) 10/13/16 15:26 Urine Blood Sm (Negative) 10/13/16 15:26 Urine Nitrite Neg (Negative) 10/13/16 15:26 Urine Bilirubin Neg (Negative) 10/13/16 15:26 Urine Urobilinogen < 2.0 mg/dL (<2.0) 10/13/16 15:26 Ur Leukocyte Esterase Mod (Negative) 10/13/16 15:26 Urine WBC (Auto) 17.0 /HPF (0.0-6.0) H 10/13/16 15:26 Urine RBC (Auto) 2.0 /HPF (0.0-6.0) 10/13/16 15:26 U Epithel Cells (Auto) < 1.0 /HPF (0-13.0) 10/13/16 15:26 Urine Mucus Few /HPF 10/13/16 15:26 Blood Type B POSITIVE 10/14/16 14:40 Antibody Screen TNR 10/14/16 14:40 SHADI Antibody Screen Negative 10/14/16 14:40 Crossmatch See Detail 10/14/16 14:40 - Imaging and Cardiology CT scan - abdomen: image reviewed
[2016-10-15] MEDS: VANCOMYCIN/NS 1 GM/250 ML 1 GM/250 ML BAG IV SCH (15:12)
[2016-10-15] MEDS: ULTRAM PO PRN (20:22)
[2016-10-15] MEDS: ZITHROMAX 500 MG in NACL 0.9% 250ML 250 ML IV SCH (22:40)
[2016-10-15] MEDS: ROCEPHIN/NS 1 GM/50 ML 1 GM/50 ML BAG IV SCH (23:20)
[2016-10-15] MEDS: REMERON PO SCH (23:22)
[2016-10-16] MEDS: VANCOMYCIN 750 MG in NACL 0.9% 250ML 250 ML IV SCH ×2 (03:26→16:47)
[2016-10-16] MEDS: VANCOMYCIN/NS 1 GM/250 ML 1 GM/250 ML BAG IV SCH (04:42)
[2016-10-16 05:33] LABS: Hemoglobin 7.3 gm/dl (11.8-15.2); Mean Corpuscular HGB Conc 32 % (32-34); Mean Corpuscular Hemoglobin 26 pg (28-32); Mean Corpuscular Volume 83 fl (84-94); Platelet Count 345 K/mm3 (140-440); Red Blood Count 2.77 M/mm3 (3.65-5.03); Red Cell Distribution Width 19.2 % (13.2-15.2); White Blood Count 12.1 K/mm3 (4.5-11.0)
[2016-10-16 05:52] LABS: Alanine Aminotransferase 13 units/L (7-56); Albumin 2.4 g/dL (3.9-5); Albumin/Globulin Ratio 0.9 %; Alkaline Phosphatase 697 units/L (35-129); Anion Gap 18 mmol/L; BUN/Creatinine Ratio 17.14; Blood Urea Nitrogen 12 mg/dL (9-20); Calcium 7.6 mg/dL (8.4-10.2); Carbon Dioxide 22 mmol/L (22-30); Chloride 106.5 mmol/L (98-107); Glucose 115 mg/dL (75-100); Potassium 3.5 mmol/L (3.6-5.0); Sodium 143 mmol/L (137-145); Total Protein 5.2 g/dL (6.3-8.2)
[2016-10-16 06:24] LABS: Anisocytosis 1+; Basophils % (Manual) 0 % (0.0-1.8); Blastocytes % (Manual) 0 %; Eosinophils % (Manual) 0 % (0.0-4.3); Hypochromasia 1+
[2016-10-16 06:25] LABS: Diff Status Complete; Elliptocytes Few; Giant Platelets Few
[2016-10-16] MEDS: DUONEB *Not for PRN Use IH SCH ×3 (07:53→20:48)
[2016-10-16] MEDS: NEURONTIN PO SCH ×3 (08:35→21:09)
--- NOTE | 2016-10-16 09:33 | Hem/Onc Consultation ---
History of Present Illness - Reason for Consult Consult date: 10/16/16 - History of Present Illness dictated anemia work up bone scan will follow records from DR loera Past History Past Medical History: COPD, hypertension, hyperlipidemia Past Surgical History: TURP Social history: smoking. denies: alcohol abuse, prescription drug abuse Family history: denies: hypertension, stroke Medications and Allergies Allergies Allergy/AdvReac Type Severity Reaction Status Date / Time Penicillins Allergy Unknown Verified 12/17/13 22:08 Home Medications Medication Instructions Recorded Confirmed Last Taken Type Disulfiram (Nf) [Antabuse (Nf)] 250 mg PO DAILY 04/09/16 05/02/16 04/29/16 History Temazepam [Restoril] 15 mg PO HS #30 capsule 04/12/16 05/02/16 1 Month Ago Rx risperiDONE [RisperDAL] 0.5 mg PO QHS #30 tablet 04/12/16 05/02/16 05/01/16 Rx Ciprofloxacin HCl 500 mg PO BID 10/13/16 10/13/16 Unknown History Combivent Respimat 10/13/16 Unknown History Gabapentin [Neurontin] 300 mg PO TID 10/13/16 10/13/16 Unknown History Mirtazapine [Remeron] 45 mg PO QHS 10/13/16 10/13/16 Unknown History Omeprazole 20 mg PO DAILY 10/13/16 10/13/16 Unknown History ProAir HFA Inhaler 10/13/16 Unknown History QUEtiapine 100 mg PO QHS 10/13/16 10/13/16 Unknown History Sertraline HCl [Zoloft] 50 mg PO DAILY 10/13/16 10/13/16 Unknown History Tizanidine HCl [tiZANidine] 2 mg PO BID 10/13/16 10/13/16 Unknown History clonazePAM 1 mg PO DAILY PRN 10/13/16 10/13/16 Unknown History traMADol [Ultram 50 MG tab] 50 mg PO TID 10/13/16 10/13/16 Unknown History Active Meds: Active Medications Albuterol/Ipratropium (Duoneb *Not For Prn Use*) 1 ampul IH TIDRT BRAULIO Last Admin: 10/16/16 07:53 Dose: 1 ampul Clonazepam (Klonopin) 1 mg PO DAILY PRN PRN Reason: anxiety Last Admin: 10/14/16 22:04 Dose: 1 mg Gabapentin (Neurontin) 300 mg PO TID REPLACED BY [facility] Last Admin: 10/16/16 08:35 Dose: 300 mg Azithromycin 500 mg/ Sodium (Chloride) 250 mls @ 250 mls/hr IV Q24H REPLACED BY [facility] PRN Reason: Protocol Last Admin: 10/15/16 22:40 Dose: 250 mls/hr Ceftriaxone Sodium (Rocephin/Ns 1 Gm/50 Ml) 1 gm in 50 mls @ 100 mls/hr IV Q24H REPLACED BY [facility] PRN Reason: Protocol Last Admin: 10/15/16 23:20 Dose: 100 mls/hr Vancomycin HCl 750 mg/ Sodium (Chloride) 265 mls @ 166.667 mls/hr IV Q12H REPLACED BY [facility] Last Admin: 10/16/16 03:26 Dose: 166.667 mls/hr Mirtazapine (Remeron) 45 mg PO QHS REPLACED BY [facility] Last Admin: 10/15/16 23:22 Dose: 45 mg Quetiapine Fumarate (Seroquel) 100 mg PO QHS REPLACED BY [facility] Last Admin: 10/15/16 23:22 Dose: 100 mg Risperidone (Risperdal) 0.5 mg PO QHS REPLACED BY [facility] Last Admin: 10/15/16 07:00 Dose: 0.5 mg Sertraline HCl (Zoloft) 50 mg PO QDAY REPLACED BY [facility] Last Admin: 10/15/16 13:00 Dose: 50 mg Tramadol HCl (Ultram) 50 mg PO Q6H PRN PRN Reason: Pain, Moderate (4-6) Last Admin: 10/15/16 20:22 Dose: 50 mg Vancomycin HCl (Vancomycin Pharmacy To Dose) 1 each IV PKCONSULT REPLACED BY [facility] PRN Reason: Protocol Exam - Constitutional Vitals: Last Vital Signs Temp 98.1 F 10/16/16 05:50 Pulse 106 H 10/16/16 08:07 Resp 20 10/16/16 08:07 BP 90/48 10/16/16 05:50 Pulse Ox 94 10/16/16 07:56 Results - Labs lab Results: Laboratory Results - last 24 hr 10/14/16 10/15/16 10/16/16 14:40 04:00 05:04 WBC 12.1 H RBC 2.77 L Hgb 7.3 L Hct 23.0 L MCV 83 L MCH 26 L MCHC 32 RDW 19.2 H Plt Count 345 Add Manual Diff Complete Total Counted 100 Seg Neuts % (Manual) 68.0 Band Neutrophils % 22.0 Lymphocytes % (Manual) 9.0 L Reactive Lymphs % (Man) 0 Monocytes % (Manual) 1.0 Eosinophils % (Manual) 0 Basophils % (Manual) 0 Metamyelocytes % 0 Myelocytes % 0 Promyelocytes % 0 Blast Cells % 0 Nucleated RBC % Not Reportable Seg Neutrophils # Man 8.2 H Band Neutrophils # 2.7 Lymphocytes # (Manual) 1.1 L Abs React Lymphs (Man) 0.0 Monocytes # (Manual) 0.1 Eosinophils # (Manual) 0.0 Basophils # (Manual) 0.0 Metamyelocytes # 0.0 Myelocytes # 0.0 Promyelocytes # 0.0 Blast Cells # 0.0 WBC Morphology Not Reportable Hypersegmented Neuts Not Reportable Hyposegmented Neuts Not Reportable Hypogranular Neuts Not Reportable Smudge Cells Not Reportable Toxic Granulation Not Reportable Toxic Vacuolation Not Reportable Dohle Bodies Not Reportable Pelger-Huet Anomaly Not Reportable Buck Rods Not Reportable Platelet Estimate Appears normal Clumped Platelets Not Reportable Plt Clumps, EDTA Not Reportable Large Platelets Not Reportable Giant Platelets Few Platelet Satelliting Not Reportable Plt Morphology Comment Not Reportable RBC Morphology Not Reportable Dimorphic RBCs Not Reportable Polychromasia Not Reportable Hypochromasia 1+ Poikilocytosis Not Reportable Anisocytosis 1+ Microcytosis Not Reportable Macrocytosis Not Reportable Spherocytes Not Reportable Pappenheimer Bodies Not Reportable Sickle Cells Not Reportable Target Cells Not Reportable Tear Drop Cells Not Reportable Ovalocytes Not Reportable Helmet Cells Not Reportable Meyer-[place] Bodies Not Reportable [place] Rings Not Reportable [place] Cells Not Reportable Bite Cells Not Reportable Crenated Cell Not Reportable Elliptocytes Few Acanthocytes (Spur) Not Reportable Rouleaux Not Reportable Hemoglobin C Crystals Not Reportable Schistocytes Not Reportable Malaria parasites Not Reportable Pranay Bodies Not Reportable Hem Pathologist Commnt No Sodium Potassium Chloride Carbon Dioxide Anion Gap BUN Creatinine Estimated GFR BUN/Creatinine Ratio Glucose Calcium Ferritin 1087.0 H Total Bilirubin AST ALT Alkaline Phosphatase Total Protein Albumin Albumin/Globulin Ratio Blood Type B POSITIVE Antibody Screen TNR SHADI Antibody Screen Negative Crossmatch See Detail 10/16/16 05:04 WBC RBC Hgb Hct MCV MCH MCHC RDW Plt Count Add Manual Diff Total Counted Seg Neuts % (Manual) Band Neutrophils % Lymphocytes % (Manual) Reactive Lymphs % (Man) Monocytes % (Manual) Eosinophils % (Manual) Basophils % (Manual) Metamyelocytes % Myelocytes % Promyelocytes % Blast Cells % Nucleated RBC % Seg Neutrophils # Man Band Neutrophils # Lymphocytes # (Manual) Abs React Lymphs (Man) Monocytes # (Manual) Eosinophils # (Manual) Basophils # (Manual) Metamyelocytes # Myelocytes # Promyelocytes # Blast Cells # WBC Morphology Hypersegmented Neuts Hyposegmented Neuts Hypogranular Neuts Smudge Cells Toxic Granulation Toxic Vacuolation Dohle Bodies Pelger-Huet Anomaly Buck Rods Platelet Estimate Clumped Platelets Plt Clumps, EDTA Large Platelets Giant Platelets Platelet Satelliting Plt Morphology Comment RBC Morphology Dimorphic RBCs Polychromasia Hypochromasia Poikilocytosis Anisocytosis Microcytosis Macrocytosis Spherocytes Pappenheimer Bodies Sickle Cells Target Cells Tear Drop Cells Ovalocytes Helmet Cells Meyer-[place] Bodies [place] Rings Erica Cells Bite Cells Crenated Cell Elliptocytes Acanthocytes (Spur) Rouleaux Hemoglobin C Crystals Schistocytes Malaria parasites Pranay Bodies Hem Pathologist Commnt Sodium 143 Potassium 3.5 L Chloride 106.5 Carbon Dioxide 22 Anion Gap 18 BUN 12 Creatinine 0.7 L Estimated GFR > 60 BUN/Creatinine Ratio 17.14 Glucose 115 H Calcium 7.6 L Ferritin Total Bilirubin 0.20 AST 20 ALT 13 Alkaline Phosphatase 697 H Total Protein 5.2 L Albumin 2.4 L Albumin/Globulin Ratio 0.9 Blood Type Antibody Screen SHADI Antibody Screen Crossmatch
[2016-10-16 10:09] LABS: Reticulocyte % 1.07 % (0.78-2.58)
[2016-10-16 10:24] LABS: Total Iron Binding Capacity 144.2 mcg/dL (250-450)
[2016-10-16] MEDS: ZOLOFT PO SCH (11:14)
--- NOTE | 2016-10-16 17:07 | Event Note ---
Date: 10/16/16 review office records
[2016-10-16] MEDS: PROTONIX PO SCH (18:59)
[2016-10-16] MEDS: RisperDAL PO SCH (21:10)
[2016-10-16] MEDS: REMERON PO SCH (21:10)
[2016-10-16] MEDS: ROCEPHIN/NS 1 GM/50 ML 1 GM/50 ML BAG IV SCH (21:11)
[2016-10-16] MEDS: ZITHROMAX 500 MG in NACL 0.9% 250ML 250 ML IV SCH (21:11)
--- NOTE | 2016-10-16 23:45 | Consultation ---
REFERRING PHYSICIAN: Dr. Damon. REASON FOR CONSULTATION: Prostate CA, anemia. HISTORY OF PRESENT ILLNESS: The patient is a 71-year-old male who has been diagnosed with prostate cancer around May of this year. The patient has not had a bone scan. He apparently presented with urinary obstruction and underwent TURP. The patient has been placed on LHRH-agonist. He has not had any bone scan in the past. He presented at this time with cough, which was a nonproductive along with high fever up to 101.8. He was found on his chest x-ray to have extensive pneumonia. CT chest also corroborated it. The patient is being treated with antibiotics. He also was found to have significant anemia. His hemoglobin on admission was 7.4, which went down to 6.4. He did receive 1 unit of packed RBC on 10/14/2016. Oncology consult was called for prostate cancer and anemia. Other pertinent labs showed the patient's MCV on admission to be 81, platelets 507. His B12 was within normal limits. His PSA was 100. His chemistries showed elevated alkaline phosphatase of 1088. His lactate was 2.2, just come down to 1.7. The patient's total protein was 5.6. PAST MEDICAL HISTORY: Positive for tobacco use. He also has history of bipolar disorder, idiopathic perforated neuropathy. PHYSICAL EXAMINATION: GENERAL: The patient is awake and oriented. HEENT: Unremarkable. CHEST: Reveals decreased breath sounds bilaterally. CARDIOVASCULAR: Regular rate and rhythm. ABDOMEN: Soft. EXTREMITIES: SCDs are present. LABORATORY DATA: As mentioned in history of present illness. ASSESSMENT: Severe anemia in face of prostate cancer, which seems to be metastatic especially with elevated PSA and elevated alkaline phosphatase. PLAN: At this time, we will go ahead and follow his counts. We will try to get records from Dr. Chavez. We will check bone scan. We will do anemia workup and monitor counts. Since the patient was recently diagnosed with prostate cancer currently we will be following him on hormonal manipulation. May need to add Casodex to the medication. We will be getting records from Dr. Chavez to see what medications he is supposed to be on. I will follow. JOB# [id number] GKS/NTS
[2016-10-16] MEDS: PROVENTIL IH PRN (23:55)
[2016-10-17 00:05] LABS: ISTAT Base Excess -1; ISTAT HCO3 22.7; ISTAT PCO2 31.5 (35-45); ISTAT PH 7.465 (7.35-7.45); ISTAT PO2 88 (80-105); ISTAT SO2 97; ISTAT TCO2 24
--- NOTE | 2016-10-17 00:27 | XRay Report ---
FINAL REPORT EXAM: XR CHEST 1V AP HISTORY: Shortness of breath. TECHNIQUE: Two frontal portable radiographs of the chest were obtained. Comparison is made chest CT 10/13/2016. FINDINGS: The heart is normal in size. Evaluation of the mediastinum is limited due to extensive pulmonary consolidation. There are diffuse bilateral patchy pulmonary infiltrates seen throughout all lung lee, right greater than left. This is moderately progressed in the left lung compared to recent chest CT. These findings are nonspecific and may represent pulmonary edema/ARDS, versus diffuse bilateral pneumonia. There are small bilateral pleural effusions. There are several compression deformities in the midthoracic spine, also seen on recent CT. There is diffuse heterogeneous bony sclerosis seen throughout the visualized osseous structures, which may represent renal osteodystrophy, myeloproliferative disorder, versus metastatic disease. Multiple old left-sided rib fractures are noted. IMPRESSION: 1. Extensive diffuse bilateral pulmonary infiltrates, right greater than left, moderately progressed in the left lung compared to chest CT 10/13/2016. Small bilateral pleural effusions. 2. Extensive diffuse heterogeneous bony sclerosis seen throughout the visualized osseous structures, nonspecific.
[2016-10-17] MEDS: VANCOMYCIN 750 MG in NACL 0.9% 250ML 250 ML IV SCH ×2 (03:14→21:03)
[2016-10-17 04:24] LABS: Hematocrit 22.3 % (35.5-45.6); Mean Corpuscular HGB Conc 31 % (32-34); Mean Corpuscular Volume 83 fl (84-94); Platelet Count 361 K/mm3 (140-440); Red Cell Distribution Width 19.7 % (13.2-15.2); White Blood Count 11.9 K/mm3 (4.5-11.0)
[2016-10-17 04:31] LABS: Mean Corpuscular Hemoglobin 26 pg (28-32)
[2016-10-17 05:30] LABS: Anisocytosis 1+; Basophils % (Manual) 0 % (0.0-1.8); Blastocytes % (Manual) 0 %; Eosinophils % (Manual) 0 % (0.0-4.3); Hypochromasia 1+
[2016-10-17 05:31] LABS: Diff Status Complete; Platelet Estimate Consistent w Auto
[2016-10-17] MEDS: DUONEB *Not for PRN Use IH SCH ×3 (08:14→19:45)
[2016-10-17] MEDS: NEURONTIN PO SCH ×3 (08:45→21:56)
--- NOTE | 2016-10-17 09:53 | Hem/Onc Progress Note ---
Assessment and Plan Hemoglobin 7 today. We will transfuse. Bone scan pending. Will follow. Once available, we will review urology evaluation. Subjective Date of service: 10/17/16 Interval history: Patient feels fair. Complains of cough. Objective - Constitutional Vitals: Last Vital Signs Temp 99.5 F 10/16/16 22:00 Pulse 110 H 10/17/16 08:32 Resp 16 10/17/16 08:32 BP 121/58 10/16/16 22:00 Pulse Ox 96 10/16/16 23:55 General appearance: mild distress Performance status: 3-limited selfcare - Neck Neck: supple - Respiratory Respiratory: bilateral: diminished, rales - Cardiovascular Rhythm: regular Extremities: No edema - Gastrointestinal General gastrointestinal: Present: soft - Labs Lab Results: Laboratory Results - last 24 hr 10/14/16 10/16/16 10/16/16 14:40 09:40 09:40 WBC RBC Hgb Hct MCV MCH MCHC RDW Plt Count Add Manual Diff Total Counted Seg Neuts % (Manual) Band Neutrophils % Lymphocytes % (Manual) Reactive Lymphs % (Man) Monocytes % (Manual) Eosinophils % (Manual) Basophils % (Manual) Metamyelocytes % Myelocytes % Promyelocytes % Blast Cells % Nucleated RBC % Seg Neutrophils # Man Band Neutrophils # Lymphocytes # (Manual) Abs React Lymphs (Man) Monocytes # (Manual) Eosinophils # (Manual) Basophils # (Manual) Metamyelocytes # Myelocytes # Promyelocytes # Blast Cells # WBC Morphology Hypersegmented Neuts Hyposegmented Neuts Hypogranular Neuts Smudge Cells Toxic Granulation Toxic Vacuolation Dohle Bodies Pelger-Huet Anomaly Buck Rods Platelet Estimate Clumped Platelets Plt Clumps, EDTA Large Platelets Giant Platelets Platelet Satelliting Plt Morphology Comment RBC Morphology Dimorphic RBCs Polychromasia Hypochromasia Poikilocytosis Anisocytosis Microcytosis Macrocytosis Spherocytes Pappenheimer Bodies Sickle Cells Target Cells Tear Drop Cells Ovalocytes Helmet Cells Meyer-Lutz Bodies [place] Rings Erica Cells Bite Cells Crenated Cell Elliptocytes Acanthocytes (Spur) Rouleaux Hemoglobin C Crystals Schistocytes Malaria parasites Percent Retic 1.07 Pranay Bodies Hem Pathologist Commnt POC ABG pH POC ABG pCO2 POC ABG pO2 POC ABG HCO3 POC ABG Total CO2 POC ABG O2 Sat POC ABG Base Excess FiO2 Iron 26 L TIBC 144.20 L % Saturation 18.03 Transferrin 103 L Ferritin Folate Crossmatch See Detail 10/16/16 10/16/16 10/16/16 09:40 09:40 23:45 WBC RBC Hgb Hct MCV MCH MCHC RDW Plt Count Add Manual Diff Total Counted Seg Neuts % (Manual) Band Neutrophils % Lymphocytes % (Manual) Reactive Lymphs % (Man) Monocytes % (Manual) Eosinophils % (Manual) Basophils % (Manual) Metamyelocytes % Myelocytes % Promyelocytes % Blast Cells % Nucleated RBC % Seg Neutrophils # Man Band Neutrophils # Lymphocytes # (Manual) Abs React Lymphs (Man) Monocytes # (Manual) Eosinophils # (Manual) Basophils # (Manual) Metamyelocytes # Myelocytes # Promyelocytes # Blast Cells # WBC Morphology Hypersegmented Neuts Hyposegmented Neuts Hypogranular Neuts Smudge Cells Toxic Granulation Toxic Vacuolation Dohle Bodies Pelger-Huet Anomaly Buck Rods Platelet Estimate Clumped Platelets Plt Clumps, EDTA Large Platelets Giant Platelets Platelet Satelliting Plt Morphology Comment RBC Morphology Dimorphic RBCs Polychromasia Hypochromasia Poikilocytosis Anisocytosis Microcytosis Macrocytosis Spherocytes Pappenheimer Bodies Sickle Cells Target Cells Tear Drop Cells Ovalocytes Helmet Cells Meyer-Lutz Bodies [place] Rings Erica Cells Bite Cells Crenated Cell Elliptocytes Acanthocytes (Spur) Rouleaux Hemoglobin C Crystals Schistocytes Malaria parasites Percent Retic Pranay Bodies Hem Pathologist Commnt POC ABG pH 7.465 H POC ABG pCO2 31.5 L POC ABG pO2 88 POC ABG HCO3 22.7 POC ABG Total CO2 24 POC ABG O2 Sat 97 POC ABG Base Excess -1 FiO2 40 Iron TIBC % Saturation Transferrin Ferritin 1072.0 H Folate 7.55 Crossmatch 10/17/16 03:56 WBC 11.9 H RBC 2.70 L Hgb 7.0 L Hct 22.3 L MCV 83 L MCH 26 L MCHC 31 L RDW 19.7 H Plt Count 361 Add Manual Diff Complete Total Counted 100 Seg Neuts % (Manual) 76.0 H Band Neutrophils % 8.0 Lymphocytes % (Manual) 8.0 L Reactive Lymphs % (Man) 0 Monocytes % (Manual) 6.0 Eosinophils % (Manual) 0 Basophils % (Manual) 0 Metamyelocytes % 2.0 Myelocytes % 0 Promyelocytes % 0 Blast Cells % 0 Nucleated RBC % 3.0 H Seg Neutrophils # Man 9.0 H Band Neutrophils # 1.0 Lymphocytes # (Manual) 1.0 L Abs React Lymphs (Man) 0.0 Monocytes # (Manual) 0.7 Eosinophils # (Manual) 0.0 Basophils # (Manual) 0.0 Metamyelocytes # 0.2 Myelocytes # 0.0 Promyelocytes # 0.0 Blast Cells # 0.0 WBC Morphology Not Reportable Hypersegmented Neuts Not Reportable Hyposegmented Neuts Not Reportable Hypogranular Neuts Not Reportable Smudge Cells Not Reportable Toxic Granulation Not Reportable Toxic Vacuolation Not Reportable Dohle Bodies Not Reportable Pelger-Huet Anomaly Not Reportable Buck Rods Not Reportable Platelet Estimate Consistent w auto Clumped Platelets Not Reportable Plt Clumps, EDTA Not Reportable Large Platelets Not Reportable Giant Platelets Not Reportable Platelet Satelliting Not Reportable Plt Morphology Comment Not Reportable RBC Morphology Not Reportable Dimorphic RBCs Not Reportable Polychromasia Not Reportable Hypochromasia 1+ Poikilocytosis Not Reportable Anisocytosis 1+ Microcytosis Not Reportable Macrocytosis Not Reportable Spherocytes Not Reportable Pappenheimer Bodies Not Reportable Sickle Cells Not Reportable Target Cells Not Reportable Tear Drop Cells Not Reportable Ovalocytes Not Reportable Helmet Cells Not Reportable Meyer-Lutz Bodies Not Reportable [place] Rings Not Reportable Erica Cells Not Reportable Bite Cells Not Reportable Crenated Cell Not Reportable Elliptocytes Not Reportable Acanthocytes (Spur) Not Reportable Rouleaux Not Reportable Hemoglobin C Crystals Not Reportable Schistocytes Not Reportable Malaria parasites Not Reportable Percent Retic Pranay Bodies Not Reportable Hem Pathologist Commnt No POC ABG pH POC ABG pCO2 POC ABG pO2 POC ABG HCO3 POC ABG Total CO2 POC ABG O2 Sat POC ABG Base Excess FiO2 Iron TIBC % Saturation Transferrin Ferritin Folate Crossmatch
[2016-10-17] MEDS ORDERED: NACL 0.9% 500 ML 500 ML IV NR ×2 (10:00→14:30)
[2016-10-17] MEDS: PROTONIX PO SCH (10:38)
[2016-10-17] MEDS: ZOLOFT PO SCH (10:38)
--- NOTE | 2016-10-17 13:11 | Nuclear Medicine Report ---
Whole body bone scan: Prostate cancer with diffuse pain. Following injection radionuclide whole-body imaging is obtained approximately 3 hours. There is a small amount of activity in the left kidney. There is no activity identified in the right kidney nor in the urinary bladder. The overall bone to background ratio is increased. There appears to be diffuse increase in the overall bone activity pattern. There are no focal areas of increased bone activity identified. There is no abnormal uptake in the soft tissues. No prior study for comparison. Impressions: The findings are consistent with a "superscan" indicative of diffuse bony metastases.
--- NOTE | 2016-10-17 13:46 | Progress Note ---
Assessment and Plan Assessment and plan: Patient is a 71-year-old gentleman who has a history of prostate cancer, chronic tobacco use disorder, bipolar disorder, and idiopathic peripheral neuropathy who presented to the emergency department on account of cough with fever 101.8 and nonproductive cough. He was found to have sepsis due to pneumonia and failure to thrive Bone scan Imaging reviewed, diffuse bony metastases Sepsis due to pneumonia * Continue antibiotics, will need seven-day course, till 10/20 Metastatic prostate cancer * Follows with Dr. Chavez, he has been consulted * Patient states that he received hormone shots, surgery and radiation treatments. But he is aware that his cancer is widely Metastatic to bone * Oncology consultation appreciated, obtain bone scan - Bilateral hydroureter /urinary retention * Status post Hansen placement, patient will need to be discharged with a Hansen - Toxic metabolic encephalopathy-was due to sepsis, also has waxing and waning delirium due to dementia. He is now back to his baseline mental status. - Anemia secondary to malignancy, chronic disease * Status post multiple transfusions, hemoglobin now stable -Severe Protien calorie Malnutrition * Dietitian consults Etoh dependence * No signs of withdrawal, was on Antabuse at home. continue to monitor UTI was ruled out via negative urine culture DVT ppx lovenox History Interval history: Patient feels well has no complaints, he states that he really does not want to go home with his daughter. She's using his money to take care of her children, who are his 2 grown grandsons. He would like to go to a [facility] Hospitalist Physical - Physical exam Narrative exam: General: Frail appearance, very thin HEENT: MMM, EOMI, wearing an eye patch cardiac: S1-S2 heard lungs: Bilateral crackles abdomen: soft, nontender, nondistended bowel sounds positive extremities: no edema clubbing or cyanosis Skin: no rash or lesion Neuro: no focal deficit Psych: appropriate behavior and mood, cognition intact - Constitutional Vitals: Temp Pulse Resp BP Pulse Ox 99.5 F 110 H 16 121/58 96 10/16/16 22:00 10/17/16 08:32 10/17/16 08:32 10/16/16 22:00 10/16/16 23:55 General appearance: Present: mild distress, other (blind on the left eye) Results - Labs CBC & Chem 7: 10/19/16 03:23 10/16/16 05:04 Labs: Laboratory Last Values WBC 11.9 K/mm3 (4.5-11.0) H 10/17/16 03:56 RBC 2.70 M/mm3 (3.65-5.03) L 10/17/16 03:56 Hgb 7.0 gm/dl (11.8-15.2) L 10/17/16 03:56 Hct 22.3 % (35.5-45.6) L 10/17/16 03:56 MCV 83 fl (84-94) L 10/17/16 03:56 MCH 26 pg (28-32) L 10/17/16 03:56 MCHC 31 % (32-34) L 10/17/16 03:56 RDW 19.7 % (13.2-15.2) H 10/17/16 03:56 Plt Count 361 K/mm3 (140-440) 10/17/16 03:56 Lymph % (Auto) 8.9 % (13.4-35.0) L 10/15/16 04:00 Hale % (Auto) 3.0 % (0.0-7.3) 10/15/16 04:00 Eos % (Auto) 0.9 % (0.0-4.3) 10/15/16 04:00 Baso % (Auto) 0.4 % (0.0-1.8) 10/15/16 04:00 Lymph # 0.8 K/mm3 (1.2-5.4) L 10/15/16 04:00 Hale # 0.3 K/mm3 (0.0-0.8) 10/15/16 04:00 Eos # 0.1 K/mm3 (0.0-0.4) 10/15/16 04:00 Baso # 0.0 K/mm3 (0.0-0.1) 10/15/16 04:00 Add Manual Diff Complete 10/17/16 03:56 Total Counted 100 10/17/16 03:56 Seg Neutrophils % 86.8 % (40.0-70.0) H 10/15/16 04:00 Seg Neuts % (Manual) 76.0 % (40.0-70.0) H 10/17/16 03:56 Band Neutrophils % 8.0 % 10/17/16 03:56 Lymphocytes % (Manual) 8.0 % (13.4-35.0) L 10/17/16 03:56 Reactive Lymphs % (Man) 0 % 10/17/16 03:56 Monocytes % (Manual) 6.0 % (0.0-7.3) 10/17/16 03:56 Eosinophils % (Manual) 0 % (0.0-4.3) 10/17/16 03:56 Basophils % (Manual) 0 % (0.0-1.8) 10/17/16 03:56 Metamyelocytes % 2.0 % 10/17/16 03:56 Myelocytes % 0 % 10/17/16 03:56 Promyelocytes % 0 % 10/17/16 03:56 Blast Cells % 0 % 10/17/16 03:56 Nucleated RBC % 3.0 % (0.0-0.9) H 10/17/16 03:56 Seg Neutrophils # 7.4 K/mm3 (1.8-7.7) 10/15/16 04:00 Seg Neutrophils # Man 9.0 K/mm3 (1.8-7.7) H 10/17/16 03:56 Band Neutrophils # 1.0 K/mm3 10/17/16 03:56 Lymphocytes # (Manual) 1.0 K/mm3 (1.2-5.4) L 10/17/16 03:56 Abs React Lymphs (Man) 0.0 K/mm3 10/17/16 03:56 Monocytes # (Manual) 0.7 K/mm3 (0.0-0.8) 10/17/16 03:56 Eosinophils # (Manual) 0.0 K/mm3 (0.0-0.4) 10/17/16 03:56 Basophils # (Manual) 0.0 K/mm3 (0.0-0.1) 10/17/16 03:56 Metamyelocytes # 0.2 K/mm3 10/17/16 03:56 Myelocytes # 0.0 K/mm3 10/17/16 03:56 Promyelocytes # 0.0 K/mm3 10/17/16 03:56 Blast Cells # 0.0 K/mm3 10/17/16 03:56 WBC Morphology Not Reportable 10/17/16 03:56 Hypersegmented Neuts Not Reportable 10/17/16 03:56 Hyposegmented Neuts Not Reportable 10/17/16 03:56 Hypogranular Neuts Not Reportable 10/17/16 03:56 Smudge Cells Not Reportable 10/17/16 03:56 Toxic Granulation Not Reportable 10/17/16 03:56 Toxic Vacuolation Not Reportable 10/17/16 03:56 Dohle Bodies Not Reportable 10/17/16 03:56 Pelger-Huet Anomaly Not Reportable 10/17/16 03:56 Buck Rods Not Reportable 10/17/16 03:56 Platelet Estimate Consistent w auto 10/17/16 03:56 Clumped Platelets Not Reportable 10/17/16 03:56 Plt Clumps, EDTA Not Reportable 10/17/16 03:56 Large Platelets Not Reportable 10/17/16 03:56 Giant Platelets Not Reportable 10/17/16 03:56 Platelet Satelliting Not Reportable 10/17/16 03:56 Plt Morphology Comment Not Reportable 10/17/16 03:56 RBC Morphology Not Reportable 10/17/16 03:56 Dimorphic RBCs Not Reportable 10/17/16 03:56 Polychromasia Not Reportable 10/17/16 03:56 Hypochromasia 1+ 10/17/16 03:56 Poikilocytosis Not Reportable 10/17/16 03:56 Anisocytosis 1+ 10/17/16 03:56 Microcytosis Not Reportable 10/17/16 03:56 Macrocytosis Not Reportable 10/17/16 03:56 Spherocytes Not Reportable 10/17/16 03:56 Pappenheimer Bodies Not Reportable 10/17/16 03:56 Sickle Cells Not Reportable 10/17/16 03:56 Target Cells Not Reportable 10/17/16 03:56 Tear Drop Cells Not Reportable 10/17/16 03:56 Ovalocytes Not Reportable 10/17/16 03:56 Helmet Cells Not Reportable 10/17/16 03:56 Meyer-[place] Bodies Not Reportable 10/17/16 03:56 [place] Rings Not Reportable 10/17/16 03:56 Erica Cells Not Reportable 10/17/16 03:56 Bite Cells Not Reportable 10/17/16 03:56 Crenated Cell Not Reportable 10/17/16 03:56 Elliptocytes Not Reportable 10/17/16 03:56 Acanthocytes (Spur) Not Reportable 10/17/16 03:56 Rouleaux Not Reportable 10/17/16 03:56 Hemoglobin C Crystals Not Reportable 10/17/16 03:56 Schistocytes Not Reportable 10/17/16 03:56 Malaria parasites Not Reportable 10/17/16 03:56 Percent Retic 1.07 % (0.78-2.58) 10/16/16 09:40 Pranay Bodies Not Reportable 10/17/16 03:56 Hem Pathologist Commnt No 10/17/16 03:56 PT 15.1 Sec. (12.2-14.9) H 10/13/16 15:25 INR 1.13 (0.87-1.13) 10/13/16 15:25 POC ABG pH 7.465 (7.35-7.45) H 10/16/16 23:45 POC ABG pCO2 31.5 (35-45) L 10/16/16 23:45 POC ABG pO2 88 (80-105) 10/16/16 23:45 POC ABG HCO3 22.7 10/16/16 23:45 POC ABG Total CO2 24 10/16/16 23:45 POC ABG O2 Sat 97 10/16/16 23:45 POC ABG Base Excess -1 10/16/16 23:45 VBG pH 7.282 (7.320-7.420) L 10/13/16 15:25 FiO2 40 % 10/16/16 23:45 Sodium 143 mmol/L (137-145) 10/16/16 05:04 Potassium 3.5 mmol/L (3.6-5.0) L 10/16/16 05:04 Chloride 106.5 mmol/L (98-107) 10/16/16 05:04 Carbon Dioxide 22 mmol/L (22-30) 10/16/16 05:04 Anion Gap 18 mmol/L 10/16/16 05:04 BUN 12 mg/dL (9-20) 10/16/16 05:04 Creatinine 0.7 mg/dL (0.8-1.5) L 10/16/16 05:04 Estimated GFR > 60 ml/min 10/16/16 05:04 BUN/Creatinine Ratio 17.14 % 10/16/16 05:04 Glucose 115 mg/dL (75-100) H 10/16/16 05:04 Lactic Acid 1.80 mmol/L (0.7-2.0) 10/15/16 08:05 Calcium 7.6 mg/dL (8.4-10.2) L 10/16/16 05:04 Iron 26 ug/dL (49-181) L 10/16/16 09:40 TIBC 144.20 mcg/dL (250-450) L 10/16/16 09:40 % Saturation 18.03 % 10/16/16 09:40 Transferrin 103 mg/dl (180-329) L 10/16/16 09:40 Ferritin 1072.0 ng/mL (13.0-400.0) H 10/16/16 09:40 Total Bilirubin 0.20 mg/dL (0.1-1.2) 10/16/16 05:04 AST 20 units/L (5-40) 10/16/16 05:04 ALT 13 units/L (7-56) 10/16/16 05:04 Alkaline Phosphatase 697 units/L (35-129) H 10/16/16 05:04 Total Protein 5.2 g/dL (6.3-8.2) L 10/16/16 05:04 Albumin 2.4 g/dL (3.9-5) L 10/16/16 05:04 Albumin/Globulin Ratio 0.9 % 10/16/16 05:04 Prostate Specific Ag 100.00 ng/mL (0.00-4.00) H 10/13/16 22:45 Vitamin B12 443.6 pg/mL (211-911) 10/13/16 22:45 Folate 7.55 ng/mL (7.3-26.0) 10/16/16 09:40 Urine Color Yellow (Yellow) 10/13/16 15:26 Urine Turbidity Clear (Clear) 10/13/16 15:26 Urine pH 6.0 (5.0-7.0) 10/13/16 15:26 Ur Specific [place] 1.011 (1.003-1.030) 10/13/16 15:26 Urine Protein <15 mg/dl mg/dL (Negative) 10/13/16 15:26 Urine Glucose (UA) Neg mg/dL (Negative) 10/13/16 15:26 Urine Ketones Neg mg/dL (Negative) 10/13/16 15:26 Urine Blood Sm (Negative) 10/13/16 15:26 Urine Nitrite Neg (Negative) 10/13/16 15:26 Urine Bilirubin Neg (Negative) 10/13/16 15:26 Urine Urobilinogen < 2.0 mg/dL (<2.0) 10/13/16 15:26 Ur Leukocyte Esterase Mod (Negative) 10/13/16 15:26 Urine WBC (Auto) 17.0 /HPF (0.0-6.0) H 10/13/16 15:26 Urine RBC (Auto) 2.0 /HPF (0.0-6.0) 10/13/16 15:26 U Epithel Cells (Auto) < 1.0 /HPF (0-13.0) 10/13/16 15:26 Urine Mucus Few /HPF 10/13/16 15:26 Blood Type B POSITIVE 10/14/16 14:40 Antibody Screen TNR 10/14/16 14:40 SHADI Antibody Screen Negative 10/14/16 14:40 Crossmatch See Detail 10/14/16 14:40
--- NOTE | 2016-10-17 14:28 | Consultation ---
History of Present Illness - Reason for Consult Consult date: 10/17/16 - History of Present Illness 71 YR OLD MALE SEEN EARLIER THIS YEAR FOR PSA GREATER THAN 700 TURP (05-02-16)---KIKO [address], CT & BONE SCAN + FOR METS PT RECEIVED FIRMAGON (1 MONTH) 05-11-16 3 MONTH ELIGARD - 07-24-16---DUE AFTER OCTOBER 24 FOR ANOTHER SHOT MD ROSEMARY / PSA ?255 / SMOKER / "I HAVE BEEN DRUNK THE LAST FEW DAYS" / JACINDA FIRM 12-23-15/ DECREASED FOS / FLOMAX, 1QD, BACTRIM X 1 MONTH / ED & LOW T KIT (NO T) / REPEAT PSA 700 APIFINY / CTAP () - + BONE METS (05-02-16) TURP, PUS BX - KIKO 9 - DAUGHTER PRESENT - COPIED FOR DAUGHTER JOAQUIN (1 MONTH) NOW - [place] IN 1MONTH FOR 3 MONTH TAWANNA---MD IN 4 MONTHS / PT WANTS CIC IF CAN'T URINE a/p ADVANCED PROSTATE CANCER(POOR FOLLOW UP) 3 MONTH ELIKYLEED - 07-24-16---DUE AFTER OCTOBER 24 FOR ANOTHER SHOT PSA NO UROLOGIC INTERVENTION NEEDED Past History Past Medical History: COPD, hypertension, hyperlipidemia Past Surgical History: TURP Social history: smoking. denies: alcohol abuse, prescription drug abuse Family history: denies: hypertension, stroke Medications and Allergies Allergies Allergy/AdvReac Type Severity Reaction Status Date / Time Penicillins Allergy Unknown Verified 12/17/13 22:08 Home Medications Medication Instructions Recorded Confirmed Last Taken Type Disulfiram (Nf) [Antabuse (Nf)] 250 mg PO DAILY 04/09/16 10/16/16 06/09/16 History Ciprofloxacin HCl 500 mg PO BID 10/13/16 10/16/16 10/13/16 11:00 History 500mg Combivent Respimat 1 mcg INHALATION QHS 10/13/16 10/16/16 10/12/16 21:30 History Gabapentin [Neurontin] 300 mg PO TID 10/13/16 10/16/16 10/13/16 11:00 History 300mg Mirtazapine [Remeron] 15 mg PO QHS 10/13/16 10/16/1617 21:30 History 15mg Omeprazole 20 mg PO DAILY 10/13/16 10/16/16 10/13/16 11:00 History 20mg ProAir HFA Inhaler 2 mcg PO BID 10/13/16 10/16/16 10/13/16 11:00 History 2 puffs QUEtiapine 100 mg PO QHS 10/13/16 10/16/16 10/12/16 21:30 History 100mg Sertraline HCl [Zoloft] 50 mg PO DAILY 10/13/16 10/16/16 10/13/16 11:00 History 50mg Tizanidine HCl [tiZANidine] 2 mg PO BID 10/13/16 10/16/16 10/13/16 11:00 History 2mg clonazePAM 1 mg PO QHS 10/13/16 10/16/16 10/12/16 21:30 History 1mg traMADol [Ultram 50 MG tab] 50 mg PO TID 10/13/16 10/16/16 10/13/16 11:00 History 50mg Active Meds: Active Medications Albuterol (Proventil) 2.5 mg IH Q4HRT PRN PRN Reason: Shortness Of Breath Last Admin: 10/16/16 23:55 Dose: 2.5 mg Albuterol/Ipratropium (Duoneb *Not For Prn Use*) 1 ampul IH TIDRT [facility] Last Admin: 10/17/16 13:54 Dose: 1 ampul Azithromycin (Zithromax) 500 mg PO Q24H [facility] Clonazepam (Klonopin) 1 mg PO DAILY PRN PRN Reason: anxiety Last Admin: 10/17/16 00:38 Dose: 1 mg Gabapentin (Neurontin) 300 mg PO TID [facility] Last Admin: 10/17/16 08:45 Dose: 300 mg Ceftriaxone Sodium (Rocephin/Ns 1 Gm/50 Ml) 1 gm in 50 mls @ 100 mls/hr IV Q24H [facility] PRN Reason: Protocol Last Admin: 10/16/16 21:11 Dose: 100 mls/hr Vancomycin HCl 750 mg/ Sodium (Chloride) 265 mls @ 166.667 mls/hr IV Q12H [facility] Last Admin: 10/17/16 03:14 Dose: 166.667 mls/hr Mirtazapine (Remeron) 45 mg PO QHS [facility] Last Admin: 10/16/16 21:10 Dose: 45 mg Pantoprazole Sodium (Protonix) 20 mg PO QDAY [facility] Last Admin: 10/17/16 10:38 Dose: 20 mg Quetiapine Fumarate (Seroquel) 100 mg PO QHS [facility] Last Admin: 10/16/16 21:10 Dose: 100 mg Risperidone (Risperdal) 0.5 mg PO QHS [facility] Last Admin: 10/16/16 21:10 Dose: 0.5 mg Sertraline HCl (Zoloft) 50 mg PO QDAY [facility] Last Admin: 10/17/16 10:38 Dose: 50 mg Tramadol HCl (Ultram) 50 mg PO Q6H PRN PRN Reason: Pain, Moderate (4-6) Last Admin: 10/15/16 20:22 Dose: 50 mg Vancomycin HCl (Vancomycin Pharmacy To Dose) 1 each IV PKCONSULT [facility] PRN Reason: Protocol Exam - Constitutional Vitals: Temp Pulse Resp BP Pulse Ox 99.5 F 89 16 121/58 96 10/16/16 22:00 10/17/16 14:08 10/17/16 14:08 10/16/16 22:00 10/16/16 23:55 Results - Labs CBC & Chem 7: 10/17/16 03:56 10/16/16 05:04 Labs: Abnormal lab results 10/14/16 10/16/16 10/17/16 Range/Units 14:40 23:45 03:56 WBC 11.9 H (4.5-11.0) K/mm3 RBC 2.70 L (3.65-5.03) M/mm3 Hgb 7.0 L (11.8-15.2) gm/dl Hct 22.3 L (35.5-45.6) % MCV 83 L (84-94) fl MCH 26 L (28-32) pg MCHC 31 L (32-34) % RDW 19.7 H (13.2-15.2) % Seg Neuts % (Manual) 76.0 H (40.0-70.0) % Lymphocytes % (Manual) 8.0 L (13.4-35.0) % Nucleated RBC % 3.0 H (0.0-0.9) % Seg Neutrophils # Man 9.0 H (1.8-7.7) K/mm3 Lymphocytes # (Manual) 1.0 L (1.2-5.4) K/mm3 POC ABG pH 7.465 H (7.35-7.45) POC ABG pCO2 31.5 L (35-45) Crossmatch See Detail
[2016-10-17] MEDS: ULTRAM PO PRN (16:17)
[2016-10-17] MEDS: LASIX IV SCH (16:56)
[2016-10-17 20:01] LABS: Hemoglobin 9.5 gm/dl (11.8-15.2)
[2016-10-17 20:04] LABS: Hematocrit 29.7 % (35.5-45.6)
[2016-10-17] MEDS: REMERON PO SCH (21:56)
[2016-10-17] MEDS: RisperDAL PO SCH (21:58)
[2016-10-17] MEDS: ZITHROMAX PO SCH (21:59)
[2016-10-18] MEDS: LASIX IV SCH (02:09)
[2016-10-18] MEDS: ROCEPHIN/NS 1 GM/50 ML 1 GM/50 ML BAG IV SCH ×2 (02:10→21:31)
[2016-10-18 04:31] LABS: Albumin 2.2 g/dL (3.8-4.8)
[2016-10-18 05:20] LABS: Hematocrit 28.5 % (35.5-45.6); Hemoglobin 9.2 gm/dl (11.8-15.2); Mean Corpuscular HGB Conc 32 % (32-34); Mean Corpuscular Hemoglobin 27 pg (28-32); Mean Corpuscular Volume 82 fl (84-94); Platelet Count 403 K/mm3 (140-440); Red Blood Count 3.48 M/mm3 (3.65-5.03); Red Cell Distribution Width 19.1 % (13.2-15.2); White Blood Count 13.3 K/mm3 (4.5-11.0)
[2016-10-18 06:56] LABS: Anisocytosis 1+; Basophils % (Manual) 0 % (0.0-1.8); Blastocytes % (Manual) 0 %; Eosinophils % (Manual) 0 % (0.0-4.3)
[2016-10-18 06:57] LABS: Diff Status Complete; Hypochromasia 1+; Large Platelets Rare; Platelet Estimate Consistent w Auto
[2016-10-18] MEDS: DUONEB *Not for PRN Use IH SCH ×3 (07:27→19:27)
[2016-10-18] MEDS: NEURONTIN PO SCH ×3 (08:44→21:30)
[2016-10-18] MEDS: PROTONIX PO SCH (10:14)
[2016-10-18] MEDS: ZOLOFT PO SCH (10:14)
--- NOTE | 2016-10-18 10:38 | Hem/Onc Progress Note ---
Assessment and Plan Patient's bone scan shows widely metastatic disease. According to Dr. Chavez's note patient's PSA was greater than 700 in the past. We will continue LHRH agonist. Once home, we can start him on Casodex also. Monitor PSA closely. Subjective Date of service: 10/18/16 Interval history: Patient feels fair. Complains of cough. Received 1 unit of packed RBCs. Dr. Chavez's note appreciated. Objective - Constitutional Vitals: Last Vital Signs Temp 98.3 F 10/18/16 10:00 Pulse 103 H 10/18/16 10:00 Resp 20 10/18/16 10:00 BP 103/51 10/18/16 10:00 Pulse Ox 95 10/18/16 07:29 General appearance: mild distress Performance status: 2- selfcare, ambulatory - Neck Neck: supple - Respiratory Respiratory effort: Positive: normal Respiratory: bilateral: diminished - Cardiovascular Rhythm: regular Extremities: No edema - Gastrointestinal General gastrointestinal: Present: soft - Labs Lab Results: Laboratory Results - last 24 hr 10/14/16 10/16/16 10/17/16 14:40 09:40 19:25 WBC RBC Hgb Hct MCV MCH MCHC RDW Plt Count Add Manual Diff Total Counted Seg Neuts % (Manual) Band Neutrophils % Lymphocytes % (Manual) Reactive Lymphs % (Man) Monocytes % (Manual) Eosinophils % (Manual) Basophils % (Manual) Metamyelocytes % Myelocytes % Promyelocytes % Blast Cells % Nucleated RBC % Seg Neutrophils # Man Band Neutrophils # Lymphocytes # (Manual) Abs React Lymphs (Man) Monocytes # (Manual) Eosinophils # (Manual) Basophils # (Manual) Metamyelocytes # Myelocytes # Promyelocytes # Blast Cells # WBC Morphology Hypersegmented Neuts Hyposegmented Neuts Hypogranular Neuts Smudge Cells Toxic Granulation Toxic Vacuolation Dohle Bodies Pelger-Huet Anomaly Buck Rods Platelet Estimate Clumped Platelets Plt Clumps, EDTA Large Platelets Giant Platelets Platelet Satelliting Plt Morphology Comment RBC Morphology Dimorphic RBCs Polychromasia Hypochromasia Poikilocytosis Anisocytosis Microcytosis Macrocytosis Spherocytes Pappenheimer Bodies Sickle Cells Target Cells Tear Drop Cells Ovalocytes Helmet Cells Meyer-[place] Bodies [place] Rings Erica Cells Bite Cells Crenated Cell Elliptocytes Acanthocytes (Spur) Rouleaux Hemoglobin C Crystals Schistocytes Malaria parasites Pranay Bodies Hem Pathologist Commnt Serum Total Protein 5.6 L Albumin 2.2 L Oxgan-2-Zmxqlbzca 0.6 H Fpbbc-5-Ludwtnpaj 1.2 H Beta Globulins 0.3 Gamma Globulins 1.0 Abnorm Protein Band 1 see below PEP Interpretation see below H Prostate Specific Ag 2088.00 H Blood Type B POSITIVE Antibody Screen TNR SHADI Antibody Screen Negative Crossmatch See Detail 10/17/16 10/18/16 19:25 04:28 WBC 13.3 H RBC 3.48 L Hgb 9.5 L 9.2 L Hct 29.7 L D 28.5 L MCV 82 L MCH 27 L MCHC 32 RDW 19.1 H Plt Count 403 Add Manual Diff Complete Total Counted 100 Seg Neuts % (Manual) 64.0 Band Neutrophils % 11.0 Lymphocytes % (Manual) 14.0 Reactive Lymphs % (Man) 0 Monocytes % (Manual) 8.0 H Eosinophils % (Manual) 0 Basophils % (Manual) 0 Metamyelocytes % 3.0 Myelocytes % 0 Promyelocytes % 0 Blast Cells % 0 Nucleated RBC % Not Reportable Seg Neutrophils # Man 8.5 H Band Neutrophils # 1.5 Lymphocytes # (Manual) 1.9 Abs React Lymphs (Man) 0.0 Monocytes # (Manual) 1.1 H Eosinophils # (Manual) 0.0 Basophils # (Manual) 0.0 Metamyelocytes # 0.4 Myelocytes # 0.0 Promyelocytes # 0.0 Blast Cells # 0.0 WBC Morphology Not Reportable Hypersegmented Neuts Not Reportable Hyposegmented Neuts Not Reportable Hypogranular Neuts Not Reportable Smudge Cells Not Reportable Toxic Granulation Not Reportable Toxic Vacuolation Not Reportable Dohle Bodies Not Reportable Pelger-Huet Anomaly Not Reportable Buck Rods Not Reportable Platelet Estimate Consistent w auto Clumped Platelets Not Reportable Plt Clumps, EDTA Not Reportable Large Platelets Rare Giant Platelets Not Reportable Platelet Satelliting Not Reportable Plt Morphology Comment Not Reportable RBC Morphology Not Reportable Dimorphic RBCs Not Reportable Polychromasia Not Reportable Hypochromasia 1+ Poikilocytosis Not Reportable Anisocytosis 1+ Microcytosis Not Reportable Macrocytosis Not Reportable Spherocytes Not Reportable Pappenheimer Bodies Not Reportable Sickle Cells Not Reportable Target Cells Not Reportable Tear Drop Cells Not Reportable Ovalocytes Not Reportable Helmet Cells Not Reportable Meyer-[place] Bodies Not Reportable [place] Rings Not Reportable Erica Cells Not Reportable Bite Cells Not Reportable Crenated Cell Not Reportable Elliptocytes Not Reportable Acanthocytes (Spur) Not Reportable Rouleaux Not Reportable Hemoglobin C Crystals Not Reportable Schistocytes Not Reportable Malaria parasites Not Reportable Pranay Bodies Not Reportable Hem Pathologist Commnt No Serum Total Protein Albumin Iesop-0-Bizahrfkz Vipuu-2-Efwtfgasx Beta Globulins Gamma Globulins Abnorm Protein Band 1 PEP Interpretation Prostate Specific Ag Blood Type Antibody Screen SHADI Antibody Screen Crossmatch
[2016-10-18] MEDS ORDERED: DULCOLAX PR PRN (14:43)
[2016-10-18] MEDS: VANCOMYCIN 750 MG in NACL 0.9% 250ML 250 ML IV SCH ×2 (15:40)
[2016-10-18] MEDS: MIRALAX 3350 PO SCH (15:40)
--- NOTE | 2016-10-18 18:57 | Progress Note ---
Assessment and Plan Assessment and plan: Patient is a 71-year-old gentleman who has a history of prostate cancer, chronic tobacco use disorder, bipolar disorder, and idiopathic peripheral neuropathy who presented to the emergency department on account of cough with fever 101.8 and nonproductive cough. He was found to have sepsis due to pneumonia and failure to thrive Bone scan Imaging reviewed, diffuse bony metastases Sepsis due to pneumonia * Continue antibiotics, will need seven-day course, till 10/20 Metastatic prostate cancer * Follows with Dr. Chavez, his input is appreciated * Patient states that he received hormone shots, surgery and radiation treatments. But he is aware that his cancer is widely Metastatic to bone * Oncology consultation appreciated, obtain bone scan - Bilateral hydroureter /urinary retention * Status post Hansen placement, patient will need to be discharged with a Hansen - Toxic metabolic encephalopathy-was due to sepsis, also has waxing and waning delirium due to dementia. He is now back to his baseline mental status. - Anemia secondary to malignancy, chronic disease * Status post multiple transfusions, hemoglobin now stable -Severe Protien calorie Malnutrition * Dietitian consults Etoh dependence * No signs of withdrawal, was on Antabuse at home. continue to monitor UTI was ruled out via negative urine culture DVT ppx lovenox History Interval history: Patient feels well has no complaints, he states that he really does not want to go home with his daughter. She's using his money to take care of her children, who are his 2 grown grandsons. He would like to go to a snf Hospitalist Physical - Physical exam Narrative exam: General: Frail appearance, very thin HEENT: MMM, EOMI, wearing an eye patch cardiac: S1-S2 heard lungs: Bilateral crackles abdomen: soft, nontender, nondistended bowel sounds positive extremities: no edema clubbing or cyanosis Skin: no rash or lesion Neuro: no focal deficit Psych: appropriate behavior and mood, cognition intact - Constitutional Vitals: Temp Pulse Resp BP Pulse Ox 98.3 F 103 H 20 103/51 96 10/18/16 10:00 10/18/16 10:00 10/18/16 10:00 10/18/16 10:10/18/16 10:00 General appearance: Present: mild distress, other (blind on the left eye) Results - Labs CBC & Chem 7: 10/19/16 03:23 10/16/16 05:04 Labs: Laboratory Last Values WBC 13.3 K/mm3 (4.5-11.0) H 10/18/16 04:28 RBC 3.48 M/mm3 (3.65-5.03) L 10/18/16 04:28 Hgb 9.2 gm/dl (11.8-15.2) L 10/18/16 04:28 Hct 28.5 % (35.5-45.6) L 10/18/16 04:28 MCV 82 fl (84-94) L 10/18/16 04:28 MCH 27 pg (28-32) L 10/18/16 04:28 MCHC 32 % (32-34) 10/18/16 04:28 RDW 19.1 % (13.2-15.2) H 10/18/16 04:28 Plt Count 403 K/mm3 (140-440) 10/18/16 04:28 Lymph % (Auto) 8.9 % (13.4-35.0) L 10/15/16 04:00 [place] % (Auto) 3.0 % (0.0-7.3) 10/15/16 04:00 Eos % (Auto) 0.9 % (0.0-4.3) 10/15/16 04:00 Baso % (Auto) 0.4 % (0.0-1.8) 10/15/16 04:00 Lymph # 0.8 K/mm3 (1.2-5.4) L 10/15/16 04:00 [place] # 0.3 K/mm3 (0.0-0.8) 10/15/16 04:00 Eos # 0.1 K/mm3 (0.0-0.4) 10/15/16 04:00 Baso # 0.0 K/mm3 (0.0-0.1) 10/15/16 04:00 Add Manual Diff Complete 10/18/16 04:28 Total Counted 100 10/18/16 04:28 Seg Neutrophils % 86.8 % (40.0-70.0) H 10/15/16 04:00 Seg Neuts % (Manual) 64.0 % (40.0-70.0) 10/18/16 04:28 Band Neutrophils % 11.0 % 10/18/16 04:28 Lymphocytes % (Manual) 14.0 % (13.4-35.0) 10/18/16 04:28 Reactive Lymphs % (Man) 0 % 10/18/16 04:28 Monocytes % (Manual) 8.0 % (0.0-7.3) H 10/18/16 04:28 Eosinophils % (Manual) 0 % (0.0-4.3) 10/18/16 04:28 Basophils % (Manual) 0 % (0.0-1.8) 10/18/16 04:28 Metamyelocytes % 3.0 % 10/18/16 04:28 Myelocytes % 0 % 10/18/16 04:28 Promyelocytes % 0 % 10/18/16 04:28 Blast Cells % 0 % 10/18/16 04:28 Nucleated RBC % Not Reportable 10/18/16 04:28 Seg Neutrophils # 7.4 K/mm3 (1.8-7.7) 10/15/16 04:00 Seg Neutrophils # Man 8.5 K/mm3 (1.8-7.7) H 10/18/16 04:28 Band Neutrophils # 1.5 K/mm3 10/18/16 04:28 Lymphocytes # (Manual) 1.9 K/mm3 (1.2-5.4) 10/18/16 04:28 Abs React Lymphs (Man) 0.0 K/mm3 10/18/16 04:28 Monocytes # (Manual) 1.1 K/mm3 (0.0-0.8) H 10/18/16 04:28 Eosinophils # (Manual) 0.0 K/mm3 (0.0-0.4) 10/18/16 04:28 Basophils # (Manual) 0.0 K/mm3 (0.0-0.1) 10/18/16 04:28 Metamyelocytes # 0.4 K/mm3 10/18/16 04:28 Myelocytes # 0.0 K/mm3 10/18/16 04:28 Promyelocytes # 0.0 K/mm3 10/18/16 04:28 Blast Cells # 0.0 K/mm3 10/18/16 04:28 WBC Morphology Not Reportable 10/18/16 04:28 Hypersegmented Neuts Not Reportable 10/18/16 04:28 Hyposegmented Neuts Not Reportable 10/18/16 04:28 Hypogranular Neuts Not Reportable 10/18/16 04:28 Smudge Cells Not Reportable 10/18/16 04:28 Toxic Granulation Not Reportable 10/18/16 04:28 Toxic Vacuolation Not Reportable 10/18/16 04:28 Dohle Bodies Not Reportable 10/18/16 04:28 Pelger-Huet Anomaly Not Reportable 10/18/16 04:28 Buck Rods Not Reportable 10/18/16 04:28 Platelet Estimate Consistent w auto 10/18/16 04:28 Clumped Platelets Not Reportable 10/18/16 04:28 Plt Clumps, EDTA Not Reportable 10/18/16 04:28 Large Platelets Rare 10/18/16 04:28 Giant Platelets Not Reportable 10/18/16 04:28 Platelet Satelliting Not Reportable 10/18/16 04:28 Plt Morphology Comment Not Reportable 10/18/16 04:28 RBC Morphology Not Reportable 10/18/16 04:28 Dimorphic RBCs Not Reportable 10/18/16 04:28 Polychromasia Not Reportable 10/18/16 04:28 Hypochromasia 1+ 10/18/16 04:28 Poikilocytosis Not Reportable 10/18/16 04:28 Anisocytosis 1+ 10/18/16 04:28 Microcytosis Not Reportable 10/18/16 04:28 Macrocytosis Not Reportable 10/18/16 04:28 Spherocytes Not Reportable 10/18/16 04:28 Pappenheimer Bodies Not Reportable 10/18/16 04:28 Sickle Cells Not Reportable 10/18/16 04:28 Target Cells Not Reportable 10/18/16 04:28 Tear Drop Cells Not Reportable 10/18/16 04:28 Ovalocytes Not Reportable 10/18/16 04:28 Helmet Cells Not Reportable 10/18/16 04:28 Meyer-[place] Bodies Not Reportable 10/18/16 04:28 [place] Rings Not Reportable 10/18/16 04:28 [place] Cells Not Reportable 10/18/16 04:28 Bite Cells Not Reportable 10/18/16 04:28 Crenated Cell Not Reportable 10/18/16 04:28 Elliptocytes Not Reportable 10/18/16 04:28 Acanthocytes (Spur) Not Reportable 10/18/16 04:28 Rouleaux Not Reportable 10/18/16 04:28 Hemoglobin C Crystals Not Reportable 10/18/16 04:28 Schistocytes Not Reportable 10/18/16 04:28 Malaria parasites Not Reportable 10/18/16 04:28 Percent Retic 1.07 % (0.78-2.58) 10/16/16 09:40 Pranay Bodies Not Reportable 10/18/16 04:28 Hem Pathologist Commnt No 10/18/16 04:28 PT 15.1 Sec. (12.2-14.9) H 10/13/16 15:25 INR 1.13 (0.87-1.13) 10/13/16 15:25 POC ABG pH 7.465 (7.35-7.45) H 10/16/16 23:45 POC ABG pCO2 31.5 (35-45) L 10/16/16 23:45 POC ABG pO2 88 (80-105) 10/16/16 23:45 POC ABG HCO3 22.7 10/16/16 23:45 POC ABG Total CO2 24 10/16/16 23:45 POC ABG O2 Sat 97 10/16/16 23:45 POC ABG Base Excess -1 10/16/16 23:45 VBG pH 7.282 (7.320-7.420) L 10/13/16 15:25 FiO2 40 % 10/16/16 23:45 Sodium 143 mmol/L (137-145) 10/16/16 05:04 Potassium 3.5 mmol/L (3.6-5.0) L 10/16/16 05:04 Chloride 106.5 mmol/L (98-107) 10/16/16 05:04 Carbon Dioxide 22 mmol/L (22-30) 10/16/16 05:04 Anion Gap 18 mmol/L 10/16/16 05:04 BUN 12 mg/dL (9-20) 10/16/16 05:04 Creatinine 0.7 mg/dL (0.8-1.5) L 10/16/16 05:04 Estimated GFR > 60 ml/min 10/16/16 05:04 BUN/Creatinine Ratio 17.14 % 10/16/16 05:04 Glucose 115 mg/dL (75-100) H 10/16/16 05:04 Lactic Acid 1.80 mmol/L (0.7-2.0) 10/15/16 08:05 Calcium 7.6 mg/dL (8.4-10.2) L 10/16/16 05:04 Iron 26 ug/dL (49-181) L 10/16/16 09:40 TIBC 144.20 mcg/dL (250-450) L 10/16/16 09:40 % Saturation 18.03 % 10/16/16 09:40 Transferrin 103 mg/dl (180-329) L 10/16/16 09:40 Ferritin 1072.0 ng/mL (13.0-400.0) H 10/16/16 09:40 Total Bilirubin 0.20 mg/dL (0.1-1.2) 10/16/16 05:04 AST 20 units/L (5-40) 10/16/16 05:04 ALT 13 units/L (7-56) 10/16/16 05:04 Alkaline Phosphatase 697 units/L (35-129) H 10/16/16 05:04 Serum Total Protein 5.6 g/dL (6.1-8.1) L 10/16/16 09:40 Total Protein 5.2 g/dL (6.3-8.2) L 10/16/16 05:04 Albumin 2.2 g/dL (3.8-4.8) L 10/16/16 09:40 Albumin/Globulin Ratio 0.9 % 10/16/16 05:04 Txmce-8-Mbtsbhlxt 0.6 g/dL (0.2-0.3) H 10/16/16 09:40 Rvvgo-2-Dbxlwdmcm 1.2 g/dL (0.5-0.9) H 10/16/16 09:40 Beta Globulins 0.3 g/dL (0.2-0.5) 10/16/16 09:40 Gamma Globulins 1.0 g/dL (0.8-1.7) 10/16/16 09:40 Abnorm Protein Band 1 see below 10/16/16 09:40 PEP Interpretation see below H 10/16/16 09:40 Prostate Specific Ag 2088.00 ng/mL (0.00-4.00) H 10/17/16 19:25 Vitamin B12 443.6 pg/mL (211-911) 10/13/16 22:45 Folate 7.55 ng/mL (7.3-26.0) 10/16/16 09:40 Urine Color Yellow (Yellow) 10/13/16 15:26 Urine Turbidity Clear (Clear) 10/13/16 15:26 Urine pH 6.0 (5.0-7.0) 10/13/16 15:26 Ur Specific [place] 1.011 (1.003-1.030) 10/13/16 15:26 Urine Protein <15 mg/dl mg/dL (Negative) 10/13/16 15:26 Urine Glucose (UA) Neg mg/dL (Negative) 10/13/16 15:26 Urine Ketones Neg mg/dL (Negative) 10/13/16 15:26 Urine Blood Sm (Negative) 10/13/16 15:26 Urine Nitrite Neg (Negative) 10/13/16 15:26 Urine Bilirubin Neg (Negative) 10/13/16 15:26 Urine Urobilinogen < 2.0 mg/dL (<2.0) 10/13/16 15:26 Ur Leukocyte Esterase Mod (Negative) 10/13/16 15:26 Urine WBC (Auto) 17.0 /HPF (0.0-6.0) H 10/13/16 15:26 Urine RBC (Auto) 2.0 /HPF (0.0-6.0) 10/13/16 15:26 U Epithel Cells (Auto) < 1.0 /HPF (0-13.0) 10/13/16 15:26 Urine Mucus Few /HPF 10/13/16 15:26 Blood Type B POSITIVE 10/14/16 14:40 Antibody Screen TNR 10/14/16 14:40 SHADI Antibody Screen Negative 10/14/16 14:40 Crossmatch See Detail 10/14/16 14:40
[2016-10-18] MEDS: ULTRAM PO PRN (21:29)
[2016-10-18] MEDS: SENOKOT S PO SCH (21:29)
[2016-10-18] MEDS: RisperDAL PO SCH (21:29)
[2016-10-18] MEDS: ZITHROMAX PO SCH (21:30)
[2016-10-18] MEDS: REMERON PO SCH (21:31)
[2016-10-18] MEDS: PROVENTIL IH PRN (23:40)
[2016-10-19] MEDS: VANCOMYCIN 750 MG in NACL 0.9% 250ML 250 ML IV SCH (03:38)
[2016-10-19 04:27] LABS: Hematocrit 25.2 % (35.5-45.6); Hemoglobin 8.1 gm/dl (11.8-15.2); Mean Corpuscular HGB Conc 32 % (32-34); Mean Corpuscular Hemoglobin 27 pg (28-32); Mean Corpuscular Volume 83 fl (84-94); Platelet Count 331 K/mm3 (140-440); Red Blood Count 3.03 M/mm3 (3.65-5.03); Red Cell Distribution Width 19.4 % (13.2-15.2); White Blood Count 12.1 K/mm3 (4.5-11.0)
[2016-10-19 06:02] LABS: Anisocytosis 1+; Basophils % (Manual) 0 % (0.0-1.8); Blastocytes % (Manual) 0 %; Eosinophils % (Manual) 0 % (0.0-4.3); Giant Platelets Rare; Hypersegmented Neutrophils Rare; Hypochromasia 1+; Polychromasia Few
[2016-10-19 06:03] LABS: Diff Status Complete
[2016-10-19] MEDS: DUONEB *Not for PRN Use IH SCH ×3 (07:44→20:32)
[2016-10-19] MEDS: NEURONTIN PO SCH ×3 (09:02→21:54)
--- NOTE | 2016-10-19 09:36 | Hem/Onc Progress Note ---
Assessment and Plan psa high- will follow treaatment of pneumonia. We will go ahead and follow him outpatient once ready. On his serum protein electrophoreses there was a question bienvenido abnormal band. We will order immunofixation Subjective Date of service: 10/19/16 Interval history: Patient feels fair. Complains of cough. Received 1 unit of packed RBCs. Dr. Chavez's note appreciated. Objective - Constitutional Vitals: Last Vital Signs Temp 97.8 F 10/18/16 22:00 Pulse 58 L 10/19/16 07:44 Resp 18 10/19/16 07:44 BP 122/68 10/18/16 22:00 Pulse Ox 100 10/19/16 07:45 Performance status: 2- selfcare, ambulatory - Neck Neck: supple - Respiratory Respiratory effort: Positive: normal Respiratory: bilateral: diminished - Cardiovascular Rhythm: regular Extremities: No edema - Gastrointestinal General gastrointestinal: Present: soft - Labs Lab Results: Laboratory Results - last 24 hr 10/19/16 03:23 WBC 12.1 H RBC 3.03 L Hgb 8.1 L Hct 25.2 L MCV 83 L MCH 27 L MCHC 32 RDW 19.4 H Plt Count 331 Add Manual Diff Complete Total Counted 100 Seg Neuts % (Manual) 71.0 H Band Neutrophils % 13.0 Lymphocytes % (Manual) 11.0 L Reactive Lymphs % (Man) 0 Monocytes % (Manual) 5.0 Eosinophils % (Manual) 0 Basophils % (Manual) 0 Metamyelocytes % 0 Myelocytes % 0 Promyelocytes % 0 Blast Cells % 0 Nucleated RBC % Not Reportable Seg Neutrophils # Man 8.6 H Band Neutrophils # 1.6 Lymphocytes # (Manual) 1.3 Abs React Lymphs (Man) 0.0 Monocytes # (Manual) 0.6 Eosinophils # (Manual) 0.0 Basophils # (Manual) 0.0 Metamyelocytes # 0.0 Myelocytes # 0.0 Promyelocytes # 0.0 Blast Cells # 0.0 WBC Morphology Not Reportable Hypersegmented Neuts Rare Hyposegmented Neuts Not Reportable Hypogranular Neuts Not Reportable Smudge Cells Not Reportable Toxic Granulation Not Reportable Toxic Vacuolation Not Reportable Dohle Bodies Not Reportable Pelger-Huet Anomaly Not Reportable Buck Rods Not Reportable Platelet Estimate Appears normal Clumped Platelets Not Reportable Plt Clumps, EDTA Not Reportable Large Platelets Not Reportable Giant Platelets Rare Platelet Satelliting Not Reportable Plt Morphology Comment Not Reportable RBC Morphology Not Reportable Dimorphic RBCs Not Reportable Polychromasia Few Hypochromasia 1+ Poikilocytosis Not Reportable Anisocytosis 1+ Microcytosis Not Reportable Macrocytosis Not Reportable Spherocytes Not Reportable Pappenheimer Bodies Not Reportable Sickle Cells Not Reportable Target Cells Not Reportable Tear Drop Cells Not Reportable Ovalocytes Not Reportable Helmet Cells Not Reportable Meyer-[place] Bodies Not Reportable [place] Rings Not Reportable [place] Cells Not Reportable Bite Cells Not Reportable Crenated Cell Not Reportable Elliptocytes Not Reportable Acanthocytes (Spur) Not Reportable Rouleaux Not Reportable Hemoglobin C Crystals Not Reportable Schistocytes Not Reportable Malaria parasites Not Reportable Pranay Bodies Not Reportable Hem Pathologist Commnt No
[2016-10-19] MEDS: PROTONIX PO SCH (09:37)
[2016-10-19] MEDS: ZOLOFT PO SCH (09:37)
[2016-10-19] MEDS: MIRALAX 3350 PO SCH (09:37)
--- NOTE | 2016-10-19 10:31 | Query- Pneumonia Documented ---
Geovanni Spear___Zionuigbsaturnino Date:___10/19/2016 Rn Acute Dialysis/CDS:___[place] Phone#:___[phone] Exercise your independent professional judgment when responding to query. Questions asked do not imply a particular answer is desired or expected. We greatly appreciate your clarification on this issue. Clinical Documentation States: 71 Year old male was admitted on 10/13/2016. The Hospitalist Progress note on 10/15/2016 states "Patient is a 71-year-old gentleman who has a history of prostate cancer, chronic tobacco use disorder, bipolar disorder, and idiopathic peripheral neuropathy who presented to the emergency department on account of cough with fever 101.8. Past 2 days ago. Cough was nonproductive. Chest x-ray reviewed by me showed infiltrates in the right lung with possible nodules suggestive of metastasis. Right lobar pneumonia Bilateral pleural effusion-small per imaging." Clinical Findings Show: Antibiotics: IV Vancomycin IV Levaquin Chest Imaging: - Right lobar pneumonia - Bilateral pleural effusion-small per imaging. Please further specify known or suspected Etiology: [ x] Aspiration Pneumonia [ ] Gram Negative Pneumonia [ ] Gram Positive Pneumonia [ ] Pseudomonas Pneumonia [ ] MRSA - related Pneumonia [ ] Viral Pneumonia [ ] Candidal Pneumonia [ ] Other: [ ] Unable to determine Present on Admission: [ x] Yes (Y) [ ] Clinically undeterminable (W) [ ] No (N) Please also document response in your Progress Notes and/or Discharge Summary and indicate if the condition was present on admission. SHAHAB
--- NOTE | 2016-10-19 11:57 | Progress Note ---
Assessment and Plan Assessment and plan: Patient is a 71-year-old gentleman who has a history of prostate cancer, chronic tobacco use disorder, bipolar disorder, and idiopathic peripheral neuropathy who presented to the emergency department on account of cough with fever 101.8 and nonproductive cough. He was found to have sepsis due to pneumonia and failure to thrive Bone scan Imaging reviewed, diffuse bony metastases Sepsis due to pneumonia * Continue antibiotics, will need seven-day course, till 10/20 Metastatic prostate cancer * Follows with Dr. Chavez, his input is appreciated * Patient states that he received hormone shots, surgery and radiation treatments. But he is aware that his cancer is widely Metastatic to bone * Oncology consultation appreciated, bone scan reviewed * On his serum protein electrophoreses there was a question bienvenido abnormal band. immunofixation ordered by oncology Hypernatremia and Hypokalemia give d5w plus KCl x 1 bag - Bilateral hydroureter /urinary retention * Status post Hansen placement, patient will need to be discharged with a Hansen - Toxic metabolic encephalopathy-was due to sepsis, also has waxing and waning delirium due to dementia. He is now back to his baseline mental status. - Anemia secondary to malignancy, chronic disease * Status post multiple transfusions, hemoglobin now stable -Severe Protien calorie Malnutrition * Dietitian consults Etoh dependence * No signs of withdrawal, was on Antabuse at home. continue to monitor Severe Debility * continue PT for SNF placement, CM input appreciated UTI was ruled out via negative urine culture DVT ppx lovenox History Interval history: Patient feels well has no complaints, he states that he really does not want to go home with his daughter. She's using his money to take care of her children, who are his 2 grown grandsons. He would like to go to a shelter Hospitalist Physical - Physical exam Narrative exam: General: Frail appearance, very thin HEENT: MMM, EOMI, wearing an eye patch cardiac: S1-S2 heard lungs: Bilateral crackles abdomen: soft, nontender, nondistended bowel sounds positive extremities: no edema clubbing or cyanosis Skin: no rash or lesion Neuro: no focal deficit Psych: appropriate behavior and mood, cognition intact - Constitutional Vitals: Temp Pulse Resp BP Pulse Ox 97.5 F L 89 21 93/44 99 10/19/16 10:10/19/16 10:10/19/16 10:00 10/19/16 10:00 10/19/16 10:00 General appearance: Present: mild distress, other (blind on the left eye) Results - Labs CBC & Chem 7: 10/20/16 04:05 10/20/16 04:05 Labs: Laboratory Last Values WBC 12.1 K/mm3 (4.5-11.0) H 10/19/16 03:23 RBC 3.03 M/mm3 (3.65-5.03) L 10/19/16 03:23 Hgb 8.1 gm/dl (11.8-15.2) L 10/19/16 03:23 Hct 25.2 % (35.5-45.6) L 10/19/16 03:23 MCV 83 fl (84-94) L 10/19/16 03:23 MCH 27 pg (28-32) L 10/19/16 03:23 MCHC 32 % (32-34) 10/19/16 03:23 RDW 19.4 % (13.2-15.2) H 10/19/16 03:23 Plt Count 331 K/mm3 (140-440) 10/19/16 03:23 Lymph % (Auto) 8.9 % (13.4-35.0) L 10/15/16 04:00 [place] % (Auto) 3.0 % (0.0-7.3) 10/15/16 04:00 Eos % (Auto) 0.9 % (0.0-4.3) 10/15/16 04:00 Baso % (Auto) 0.4 % (0.0-1.8) 10/15/16 04:00 Lymph # 0.8 K/mm3 (1.2-5.4) L 10/15/16 04:00 [place] # 0.3 K/mm3 (0.0-0.8) 10/15/16 04:00 Eos # 0.1 K/mm3 (0.0-0.4) 10/15/16 04:00 Baso # 0.0 K/mm3 (0.0-0.1) 10/15/16 04:00 Add Manual Diff Complete 10/19/16 03:23 Total Counted 100 10/19/16 03:23 Seg Neutrophils % 86.8 % (40.0-70.0) H 10/15/16 04:00 Seg Neuts % (Manual) 71.0 % (40.0-70.0) H 10/19/16 03:23 Band Neutrophils % 13.0 % 10/19/16 03:23 Lymphocytes % (Manual) 11.0 % (13.4-35.0) L 10/19/16 03:23 Reactive Lymphs % (Man) 0 % 10/19/16 03:23 Monocytes % (Manual) 5.0 % (0.0-7.3) 10/19/16 03:23 Eosinophils % (Manual) 0 % (0.0-4.3) 10/19/16 03:23 Basophils % (Manual) 0 % (0.0-1.8) 10/19/16 03:23 Metamyelocytes % 0 % 10/19/16 03:23 Myelocytes % 0 % 10/19/16 03:23 Promyelocytes % 0 % 10/19/16 03:23 Blast Cells % 0 % 10/19/16 03:23 Nucleated RBC % Not Reportable 10/19/16 03:23 Seg Neutrophils # 7.4 K/mm3 (1.8-7.7) 10/15/16 04:00 Seg Neutrophils # Man 8.6 K/mm3 (1.8-7.7) H 10/19/16 03:23 Band Neutrophils # 1.6 K/mm3 10/19/16 03:23 Lymphocytes # (Manual) 1.3 K/mm3 (1.2-5.4) 10/19/16 03:23 Abs React Lymphs (Man) 0.0 K/mm3 10/19/16 03:23 Monocytes # (Manual) 0.6 K/mm3 (0.0-0.8) 10/19/16 03:23 Eosinophils # (Manual) 0.0 K/mm3 (0.0-0.4) 10/19/16 03:23 Basophils # (Manual) 0.0 K/mm3 (0.0-0.1) 10/19/16 03:23 Metamyelocytes # 0.0 K/mm3 10/19/16 03:23 Myelocytes # 0.0 K/mm3 10/19/16 03:23 Promyelocytes # 0.0 K/mm3 10/19/16 03:23 Blast Cells # 0.0 K/mm3 10/19/16 03:23 WBC Morphology Not Reportable 10/19/16 03:23 Hypersegmented Neuts Rare 10/19/16 03:23 Hyposegmented Neuts Not Reportable 10/19/16 03:23 Hypogranular Neuts Not Reportable 10/19/16 03:23 Smudge Cells Not Reportable 10/19/16 03:23 Toxic Granulation Not Reportable 10/19/16 03:23 Toxic Vacuolation Not Reportable 10/19/16 03:23 Dohle Bodies Not Reportable 10/19/16 03:23 Pelger-Huet Anomaly Not Reportable 10/19/16 03:23 Buck Rods Not Reportable 10/19/16 03:23 Platelet Estimate Appears normal 10/19/16 03:23 Clumped Platelets Not Reportable 10/19/16 03:23 Plt Clumps, EDTA Not Reportable 10/19/16 03:23 Large Platelets Not Reportable 10/19/16 03:23 Giant Platelets Rare 10/19/16 03:23 Platelet Satelliting Not Reportable 10/19/16 03:23 Plt Morphology Comment Not Reportable 10/19/16 03:23 RBC Morphology Not Reportable 10/19/16 03:23 Dimorphic RBCs Not Reportable 10/19/16 03:23 Polychromasia Few 10/19/16 03:23 Hypochromasia 1+ 10/19/16 03:23 Poikilocytosis Not Reportable 10/19/16 03:23 Anisocytosis 1+ 10/19/16 03:23 Microcytosis Not Reportable 10/19/16 03:23 Macrocytosis Not Reportable 10/19/16 03:23 Spherocytes Not Reportable 10/19/16 03:23 Pappenheimer Bodies Not Reportable 10/19/16 03:23 Sickle Cells Not Reportable 10/19/16 03:23 Target Cells Not Reportable 10/19/16 03:23 Tear Drop Cells Not Reportable 10/19/16 03:23 Ovalocytes Not Reportable 10/19/16 03:23 Helmet Cells Not Reportable 10/19/16 03:23 Meyer-[place] Bodies Not Reportable 10/19/16 03:23 [place] Rings Not Reportable 10/19/16 03:23 [place] Cells Not Reportable 10/19/16 03:23 Bite Cells Not Reportable 10/19/16 03:23 Crenated Cell Not Reportable 10/19/16 03:23 Elliptocytes Not Reportable 10/19/16 03:23 Acanthocytes (Spur) Not Reportable 10/19/16 03:23 Rouleaux Not Reportable 10/19/16 03:23 Hemoglobin C Crystals Not Reportable 10/19/16 03:23 Schistocytes Not Reportable 10/19/16 03:23 Malaria parasites Not Reportable 10/19/16 03:23 Percent Retic 1.07 % (0.78-2.58) 10/16/16 09:40 Pranay Bodies Not Reportable 10/19/16 03:23 Hem Pathologist Commnt No 10/19/16 03:23 PT 15.1 Sec. (12.2-14.9) H 10/13/16 15:25 INR 1.13 (0.87-1.13) 10/13/16 15:25 POC ABG pH 7.465 (7.35-7.45) H 10/16/16 23:45 POC ABG pCO2 31.5 (35-45) L 10/16/16 23:45 POC ABG pO2 88 (80-105) 10/16/16 23:45 POC ABG HCO3 22.7 10/16/16 23:45 POC ABG Total CO2 24 10/16/16 23:45 POC ABG O2 Sat 97 10/16/16 23:45 POC ABG Base Excess -1 10/16/16 23:45 VBG pH 7.282 (7.320-7.420) L 10/13/16 15:25 FiO2 40 % 10/16/16 23:45 Sodium 143 mmol/L (137-145) 10/16/16 05:04 Potassium 3.5 mmol/L (3.6-5.0) L 10/16/16 05:04 Chloride 106.5 mmol/L (98-107) 10/16/16 05:04 Carbon Dioxide 22 mmol/L (22-30) 10/16/16 05:04 Anion Gap 18 mmol/L 10/16/16 05:04 BUN 12 mg/dL (9-20) 10/16/16 05:04 Creatinine 0.7 mg/dL (0.8-1.5) L 10/16/16 05:04 Estimated GFR > 60 ml/min 10/16/16 05:04 BUN/Creatinine Ratio 17.14 % 10/16/16 05:04 Glucose 115 mg/dL (75-100) H 10/16/16 05:04 Lactic Acid 1.80 mmol/L (0.7-2.0) 10/15/16 08:05 Calcium 7.6 mg/dL (8.4-10.2) L 10/16/16 05:04 Iron 26 ug/dL (49-181) L 10/16/16 09:40 TIBC 144.20 mcg/dL (250-450) L 10/16/16 09:40 % Saturation 18.03 % 10/16/16 09:40 Transferrin 103 mg/dl (180-329) L 10/16/16 09:40 Ferritin 1072.0 ng/mL (13.0-400.0) H 10/16/16 09:40 Total Bilirubin 0.20 mg/dL (0.1-1.2) 10/16/16 05:04 AST 20 units/L (5-40) 10/16/16 05:04 ALT 13 units/L (7-56) 10/16/16 05:04 Alkaline Phosphatase 697 units/L (35-129) H 10/16/16 05:04 Serum Total Protein 5.6 g/dL (6.1-8.1) L 10/16/16 09:40 Total Protein 5.2 g/dL (6.3-8.2) L 10/16/16 05:04 Albumin 2.2 g/dL (3.8-4.8) L 10/16/16 09:40 Albumin/Globulin Ratio 0.9 % 10/16/16 05:04 Liamd-5-Lrburopdw 0.6 g/dL (0.2-0.3) H 10/16/16 09:40 Yrzjv-8-Jkznqkxwr 1.2 g/dL (0.5-0.9) H 10/16/16 09:40 Beta Globulins 0.3 g/dL (0.2-0.5) 10/16/16 09:40 Gamma Globulins 1.0 g/dL (0.8-1.7) 10/16/16 09:40 Abnorm Protein Band 1 see below 10/16/16 09:40 PEP Interpretation see below H 10/16/16 09:40 Prostate Specific Ag 2088.00 ng/mL (0.00-4.00) H 10/17/16 19:25 Vitamin B12 443.6 pg/mL (211-911) 10/13/16 22:45 Folate 7.55 ng/mL (7.3-26.0) 10/16/16 09:40 Urine Color Yellow (Yellow) 10/13/16 15:26 Urine Turbidity Clear (Clear) 10/13/16 15:26 Urine pH 6.0 (5.0-7.0) 10/13/16 15:26 Ur Specific [place] 1.011 (1.003-1.030) 10/13/16 15:26 Urine Protein <15 mg/dl mg/dL (Negative) 10/13/16 15:26 Urine Glucose (UA) Neg mg/dL (Negative) 10/13/16 15:26 Urine Ketones Neg mg/dL (Negative) 10/13/16 15:26 Urine Blood Sm (Negative) 10/13/16 15:26 Urine Nitrite Neg (Negative) 10/13/16 15:26 Urine Bilirubin Neg (Negative) 10/13/16 15:26 Urine Urobilinogen < 2.0 mg/dL (<2.0) 10/13/16 15:26 Ur Leukocyte Esterase Mod (Negative) 10/13/16 15:26 Urine WBC (Auto) 17.0 /HPF (0.0-6.0) H 10/13/16 15:26 Urine RBC (Auto) 2.0 /HPF (0.0-6.0) 10/13/16 15:26 U Epithel Cells (Auto) < 1.0 /HPF (0-13.0) 10/13/16 15:26 Urine Mucus Few /HPF 10/13/16 15:26 Blood Type B POSITIVE 10/14/16 14:40 Antibody Screen TNR 10/14/16 14:40 SHADI Antibody Screen Negative 10/14/16 14:40 Crossmatch See Detail 10/14/16 14:40
[2016-10-19] MEDS: ULTRAM PO PRN (18:26)
[2016-10-19] MEDS: RisperDAL PO SCH (21:54)
[2016-10-19] MEDS: LOVENOX SUB-Q SCH (21:55)
[2016-10-19] MEDS: ZITHROMAX PO SCH (21:55)
[2016-10-19] MEDS: REMERON PO SCH (21:55)
[2016-10-19] MEDS: SENOKOT S PO SCH (21:56)
[2016-10-19] MEDS: ROCEPHIN/NS 1 GM/50 ML 1 GM/50 ML BAG IV SCH (21:56)
[2016-10-20 04:45] LABS: Hematocrit 25.4 % (35.5-45.6); Hemoglobin 8.2 gm/dl (11.8-15.2); Mean Corpuscular HGB Conc 32 % (32-34); Mean Corpuscular Hemoglobin 27 pg (28-32); Mean Corpuscular Volume 82 fl (84-94); Platelet Count 330 K/mm3 (140-440); Red Blood Count 3.09 M/mm3 (3.65-5.03); White Blood Count 9.8 K/mm3 (4.5-11.0)
[2016-10-20 04:55] LABS: BUN/Creatinine Ratio 18.57; Blood Urea Nitrogen 13 mg/dL (9-20); Calcium 7.8 mg/dL (8.4-10.2); Carbon Dioxide 34 mmol/L (22-30); Chloride 102.6 mmol/L (98-107); Glucose 110 mg/dL (75-100); Sodium 146 mmol/L (137-145)
[2016-10-20 05:10] LABS: Anion Gap 13 mmol/L; Potassium 3.5 mmol/L (3.6-5.0)
[2016-10-20 08:41] LABS: Basophils % (Manual) 0 % (0.0-1.8); Blastocytes % (Manual) 0 %
[2016-10-20 08:43] LABS: Anisocytosis 1+; Hypersegmented Neutrophils Rare; Hypochromasia 1+
[2016-10-20] MEDS: ULTRAM PO PRN ×2 (08:43→23:43)
[2016-10-20 08:44] LABS: Diff Status Complete
[2016-10-20] MEDS: NEURONTIN PO SCH ×3 (08:45→21:50)
[2016-10-20] MEDS: DUONEB *Not for PRN Use IH SCH ×3 (08:54→21:28)
[2016-10-20] MEDS: MIRALAX 3350 PO SCH (09:24)
[2016-10-20] MEDS: ZOLOFT PO SCH (09:25)
[2016-10-20] MEDS: PROTONIX PO SCH (09:25)
[2016-10-20] MEDS ORDERED: KCL 40 MEQ in D5W 1,000 ML IV SCH (12:30)
--- NOTE | 2016-10-20 13:55 | Hem/Onc Progress Note ---
Assessment and Plan - Patient Problems (1) Prostate cancer Current Visit: Yes Status: Acute Plan to address problem: On LHRH treatments. Outpatient follow up. He agrees. Subjective Date of service: 10/20/16 Interval history: He feels stable. Very cachexic. Objective - Constitutional Vitals: Last Vital Signs Temp 98.7 F 10/20/16 10:00 Pulse 92 H 10/20/16 10:00 Resp 20 10/20/16 10:00 BP 125/60 10/20/16 10:00 Pulse Ox 99 10/20/16 10:00 General appearance: cachectic - EENT ENT: hearing intact Lymph node exam: negative cervical - Respiratory Respiratory effort: Positive: normal Respiratory: bilateral: CTA - Labs Lab Results: Laboratory Results - last 24 hr 10/20/16 10/20/16 04:05 04:05 WBC 9.8 RBC 3.09 L Hgb 8.2 L Hct 25.4 L MCV 82 L MCH 27 L MCHC 32 RDW 19.0 H Plt Count 330 Add Manual Diff Complete Total Counted 100 Seg Neuts % (Manual) 53.0 Band Neutrophils % 27.0 Lymphocytes % (Manual) 15.0 Reactive Lymphs % (Man) 0 Monocytes % (Manual) 2.0 Eosinophils % (Manual) 3.0 Basophils % (Manual) 0 Metamyelocytes % 0 Myelocytes % 0 Promyelocytes % 0 Blast Cells % 0 Nucleated RBC % 4.0 H Seg Neutrophils # Man 5.2 Band Neutrophils # 2.6 Lymphocytes # (Manual) 1.5 Abs React Lymphs (Man) 0.0 Monocytes # (Manual) 0.2 Eosinophils # (Manual) 0.3 Basophils # (Manual) 0.0 Metamyelocytes # 0.0 Myelocytes # 0.0 Promyelocytes # 0.0 Blast Cells # 0.0 WBC Morphology Not Reportable Hypersegmented Neuts Rare Hyposegmented Neuts Not Reportable Hypogranular Neuts Not Reportable Smudge Cells Not Reportable Toxic Granulation Not Reportable Toxic Vacuolation Not Reportable Dohle Bodies Not Reportable Pelger-Huet Anomaly Not Reportable Buck Rods Not Reportable Platelet Estimate Appears normal Clumped Platelets Not Reportable Plt Clumps, EDTA Not Reportable Large Platelets Not Reportable Giant Platelets Not Reportable Platelet Satelliting Not Reportable Plt Morphology Comment Not Reportable RBC Morphology Not Reportable Dimorphic RBCs Not Reportable Polychromasia Not Reportable Hypochromasia 1+ Poikilocytosis Not Reportable Anisocytosis 1+ Microcytosis Not Reportable Macrocytosis Not Reportable Spherocytes Not Reportable Pappenheimer Bodies Not Reportable Sickle Cells Not Reportable Target Cells Not Reportable Tear Drop Cells Not Reportable Ovalocytes Not Reportable Helmet Cells Not Reportable Meyer-[place] Bodies Not Reportable [place] Rings Not Reportable Kyle Cells Not Reportable Bite Cells Not Reportable Crenated Cell Not Reportable Elliptocytes Not Reportable Acanthocytes (Spur) Not Reportable Rouleaux Not Reportable Hemoglobin C Crystals Not Reportable Schistocytes Not Reportable Malaria parasites Not Reportable Pranay Bodies Not Reportable Hem Pathologist Commnt No Sodium 146 H Potassium 3.5 L Chloride 102.6 Carbon Dioxide 34 H D Anion Gap 13 BUN 13 Creatinine 0.7 L Estimated GFR > 60 BUN/Creatinine Ratio 18.57 Glucose 110 H Calcium 7.8 L
[2016-10-20] MEDS: MUCOMYST INHALATION INHALATION SCH ×2 (21:28→21:29)
[2016-10-20] MEDS: RisperDAL PO SCH (21:45)
[2016-10-20] MEDS: SENOKOT S PO SCH (21:47)
[2016-10-20] MEDS: REMERON PO SCH (21:48)
[2016-10-20] MEDS: LOVENOX SUB-Q SCH (21:51)
[2016-10-21 06:40] LABS: Hematocrit 27.8 % (35.5-45.6); Hemoglobin 8.7 gm/dl (11.8-15.2); Mean Corpuscular HGB Conc 31 % (32-34); Mean Corpuscular Hemoglobin 26 pg (28-32); Mean Corpuscular Volume 84 fl (84-94); Platelet Count 381 K/mm3 (140-440); Red Blood Count 3.31 M/mm3 (3.65-5.03); White Blood Count 9.1 K/mm3 (4.5-11.0)
[2016-10-21] MEDS: MUCOMYST INHALATION INHALATION SCH ×2 (07:58→15:48)
[2016-10-21] MEDS: DUONEB *Not for PRN Use IH SCH ×2 (07:58→15:48)
[2016-10-21 08:03] LABS: Anisocytosis 1+; Basophils % (Manual) 0 % (0.0-1.8); Blastocytes % (Manual) 0 %; Hypochromasia Few; Polychromasia Rare
[2016-10-21 08:04] LABS: Diff Status Complete; Target Cells Few; Tear Drop Cells Rare
[2016-10-21] MEDS: NEURONTIN PO SCH ×3 (08:50→21:51)
[2016-10-21] MEDS: PROTONIX PO SCH (10:21)
[2016-10-21] MEDS: ULTRAM PO PRN (10:22)
[2016-10-21] MEDS: MIRALAX 3350 PO SCH (10:24)
[2016-10-21] MEDS: ZOLOFT PO SCH (10:25)
--- NOTE | 2016-10-21 13:16 | Progress Note ---
Assessment and Plan Assessment and plan: Patient is a 71-year-old gentleman who has a history of prostate cancer, chronic tobacco use disorder, bipolar disorder, and idiopathic peripheral neuropathy who presented to the emergency department on account of cough with fever 101.8 and nonproductive cough. He was found to have sepsis due to pneumonia and failure to thrive Bone scan Imaging reviewed, diffuse bony metastases Sepsis due to pneumonia * Has completed a course of antibiotics Metastatic prostate cancer * Follows with Dr. Chavez, his input is appreciated * Patient states that he received hormone shots, surgery and radiation treatments. But he is aware that his cancer is widely Metastatic to bone * Oncology consultation appreciated, bone scan reviewed * On his serum protein electrophoreses there was a question bienvenido abnormal band. immunofixation ordered by oncology Hypernatremia and Hypokalemia Received IV fluids and potassium repletion - Bilateral hydroureter /urinary retention * Status post Hansen placement, patient will need to be discharged with a Hansen - Toxic metabolic encephalopathy-was due to sepsis, also has waxing and waning delirium due to dementia. He is now back to his baseline mental status. - Anemia secondary to malignancy, chronic disease * Status post multiple transfusions, hemoglobin now stable -Severe Protien calorie Malnutrition * Dietitian consults Etoh dependence * No signs of withdrawal, was on Antabuse at home. continue to monitor Severe Debility * continue PT for SNF placement, CM input appreciated UTI was ruled out via negative urine culture DVT ppx lovenox History Interval history: Patient feels well has no complaints, he states that he really does not want to go home with his daughter. She's using his money to take care of her children, who are his 2 grown grandsons. He would like to go to a retirement Hospitalist Physical - Physical exam Narrative exam: General: Frail appearance, very thin HEENT: MMM, EOMI, wearing an eye patch cardiac: S1-S2 heard lungs: Bilateral crackles abdomen: soft, nontender, nondistended bowel sounds positive extremities: no edema clubbing or cyanosis Skin: no rash or lesion Neuro: no focal deficit Psych: appropriate behavior and mood, cognition intact - Constitutional Vitals: Temp Pulse Resp BP Pulse Ox 98.2 F 88 22 101/47 96 10/21/16 08:40 10/21/16 08:55 10/21/16 10:22 10/21/16 08:40 10/21/16 08:55 General appearance: Present: mild distress, other (blind on the left eye) Results - Labs CBC & Chem 7: 10/21/16 05:25 10/20/16 04:05 Labs: Laboratory Last Values WBC 9.1 K/mm3 (4.5-11.0) 10/21/16 05:25 RBC 3.31 M/mm3 (3.65-5.03) L 10/21/16 05:25 Hgb 8.7 gm/dl (11.8-15.2) L 10/21/16 05:25 Hct 27.8 % (35.5-45.6) L 10/21/16 05:25 MCV 84 fl (84-94) 10/21/16 05:25 MCH 26 pg (28-32) L 10/21/16 05:25 MCHC 31 % (32-34) L 10/21/16 05:25 RDW 20.0 % (13.2-15.2) H 10/21/16 05:25 Plt Count 381 K/mm3 (140-440) 10/21/16 05:25 Lymph % (Auto) Special Order Jeweler 10/21/16 05:25 [place] % (Auto) [employer] Order Jeweler 10/21/16 05:25 Eos % (Auto) [employer] Order Jeweler 10/21/16 05:25 Baso % (Auto) [employer] Order Jeweler 10/21/16 05:25 Lymph # [employer] Order Jeweler 10/21/16 05:25 [place] # Special Order Jeweler 10/21/16 05:25 Eos # Special Order Jeweler 10/21/16 05:25 Baso # Special Order Jeweler 10/21/16 05:25 Add Manual Diff Complete 10/21/16 05:25 Total Counted 100 10/21/16 05:25 Seg Neutrophils % Special Order Jeweler 10/21/16 05:25 Seg Neuts % (Manual) 82.0 % (40.0-70.0) H 10/21/16 05:25 Band Neutrophils % 1.0 % 10/21/16 05:25 Lymphocytes % (Manual) 8.0 % (13.4-35.0) L 10/21/16 05:25 Reactive Lymphs % (Man) 0 % 10/21/16 05:25 Monocytes % (Manual) 2.0 % (0.0-7.3) 10/21/16 05:25 Eosinophils % (Manual) 1.0 % (0.0-4.3) 10/21/16 05:25 Basophils % (Manual) 0 % (0.0-1.8) 10/21/16 05:25 Metamyelocytes % 1.0 % 10/21/16 05:25 Myelocytes % 5.0 % 10/21/16 05:25 Promyelocytes % 0 % 10/21/16 05:25 Blast Cells % 0 % 10/21/16 05:25 Nucleated RBC % Not Reportable 10/21/16 05:25 Seg Neutrophils # Special Order Jeweler 10/21/16 05:25 Seg Neutrophils # Man 7.5 K/mm3 (1.8-7.7) 10/21/16 05:25 Band Neutrophils # 0.1 K/mm3 10/21/16 05:25 Lymphocytes # (Manual) 0.7 K/mm3 (1.2-5.4) L 10/21/16 05:25 Abs React Lymphs (Man) 0.0 K/mm3 10/21/16 05:25 Monocytes # (Manual) 0.2 K/mm3 (0.0-0.8) 10/21/16 05:25 Eosinophils # (Manual) 0.1 K/mm3 (0.0-0.4) 10/21/16 05:25 Basophils # (Manual) 0.0 K/mm3 (0.0-0.1) 10/21/16 05:25 Metamyelocytes # 0.1 K/mm3 10/21/16 05:25 Myelocytes # 0.5 K/mm3 10/21/16 05:25 Promyelocytes # 0.0 K/mm3 10/21/16 05:25 Blast Cells # 0.0 K/mm3 10/21/16 05:25 WBC Morphology Not Reportable 10/21/16 05:25 Hypersegmented Neuts Not Reportable 10/21/16 05:25 Hyposegmented Neuts Not Reportable 10/21/16 05:25 Hypogranular Neuts Not Reportable 10/21/16 05:25 Smudge Cells Not Reportable 10/21/16 05:25 Toxic Granulation Not Reportable 10/21/16 05:25 Toxic Vacuolation Not Reportable 10/21/16 05:25 Dohle Bodies Not Reportable 10/21/16 05:25 Pelger-Huet Anomaly Not Reportable 10/21/16 05:25 Buck Rods Not Reportable 10/21/16 05:25 Platelet Estimate Appears normal 10/21/16 05:25 Clumped Platelets Not Reportable 10/21/16 05:25 Plt Clumps, EDTA Not Reportable 10/21/16 05:25 Large Platelets Not Reportable 10/21/16 05:25 Giant Platelets Not Reportable 10/21/16 05:25 Platelet Satelliting Not Reportable 10/21/16 05:25 Plt Morphology Comment Not Reportable 10/21/16 05:25 RBC Morphology Not Reportable 10/21/16 05:25 Dimorphic RBCs Not Reportable 10/21/16 05:25 Polychromasia Rare 10/21/16 05:25 Hypochromasia Few 10/21/16 05:25 Poikilocytosis Not Reportable 10/21/16 05:25 Anisocytosis 1+ 10/21/16 05:25 Microcytosis Not Reportable 10/21/16 05:25 Macrocytosis Not Reportable 10/21/16 05:25 Spherocytes Not Reportable 10/21/16 05:25 Pappenheimer Bodies Not Reportable 10/21/16 05:25 Sickle Cells Not Reportable 10/21/16 05:25 Target Cells Few 10/21/16 05:25 Tear Drop Cells Rare 10/21/16 05:25 Ovalocytes Not Reportable 10/21/16 05:25 Helmet Cells Not Reportable 10/21/16 05:25 Meyre-[place] Bodies Not Reportable 10/21/16 05:25 [place] Rings Not Reportable 10/21/16 05:25 Erica Cells Not Reportable 10/21/16 05:25 Bite Cells Not Reportable 10/21/16 05:25 Crenated Cell Not Reportable 10/21/16 05:25 Elliptocytes Not Reportable 10/21/16 05:25 Acanthocytes (Spur) Not Reportable 10/21/16 05:25 Rouleaux Not Reportable 10/21/16 05:25 Hemoglobin C Crystals Not Reportable 10/21/16 05:25 Schistocytes Not Reportable 10/21/16 05:25 Malaria parasites Not Reportable 10/21/16 05:25 Percent Retic 1.07 % (0.78-2.58) 10/16/16 09:40 Pranay Bodies Not Reportable 10/21/16 05:25 Hem Pathologist Commnt No 10/21/16 05:25 PT 15.1 Sec. (12.2-14.9) H 10/13/16 15:25 INR 1.13 (0.87-1.13) 10/13/16 15:25 POC ABG pH 7.465 (7.35-7.45) H 10/16/16 23:45 POC ABG pCO2 31.5 (35-45) L 10/16/16 23:45 POC ABG pO2 88 (80-105) 10/16/16 23:45 POC ABG HCO3 22.7 10/16/16 23:45 POC ABG Total CO2 24 10/16/16 23:45 POC ABG O2 Sat 97 10/16/16 23:45 POC ABG Base Excess -1 10/16/16 23:45 VBG pH 7.282 (7.320-7.420) L 10/13/16 15:25 FiO2 40 % 10/16/16 23:45 Sodium 146 mmol/L (137-145) H 10/20/16 04:05 Potassium 3.5 mmol/L (3.6-5.0) L 10/20/16 04:05 Chloride 102.6 mmol/L (98-107) 10/20/16 04:05 Carbon Dioxide 34 mmol/L (22-30) H D 10/20/16 04:05 Anion Gap 13 mmol/L 10/20/16 04:05 BUN 13 mg/dL (9-20) 10/20/16 04:05 Creatinine 0.7 mg/dL (0.8-1.5) L 10/20/16 04:05 Estimated GFR > 60 ml/min 10/20/16 04:05 BUN/Creatinine Ratio 18.57 % 10/20/16 04:05 Glucose 110 mg/dL (75-100) H 10/20/16 04:05 Lactic Acid 1.80 mmol/L (0.7-2.0) 10/15/16 08:05 Calcium 7.8 mg/dL (8.4-10.2) L 10/20/16 04:05 Iron 26 ug/dL (49-181) L 10/16/16 09:40 TIBC 144.20 mcg/dL (250-450) L 10/16/16 09:40 % Saturation 18.03 % 10/16/16 09:40 Transferrin 103 mg/dl (180-329) L 10/16/16 09:40 Ferritin 1072.0 ng/mL (13.0-400.0) H 10/16/16 09:40 Total Bilirubin 0.20 mg/dL (0.1-1.2) 10/16/16 05:04 AST 20 units/L (5-40) 10/16/16 05:04 ALT 13 units/L (7-56) 10/16/16 05:04 Alkaline Phosphatase 697 units/L (35-129) H 10/16/16 05:04 Serum Total Protein 5.6 g/dL (6.1-8.1) L 10/16/16 09:40 Total Protein 5.2 g/dL (6.3-8.2) L 10/16/16 05:04 Albumin 2.2 g/dL (3.8-4.8) L 10/16/16 09:40 Albumin/Globulin Ratio 0.9 % 10/16/16 05:04 Sxtzn-2-Qvaqmjsyf 0.6 g/dL (0.2-0.3) H 10/16/16 09:40 Lwnke-4-Eszqrfwqw 1.2 g/dL (0.5-0.9) H 10/16/16 09:40 Beta Globulins 0.3 g/dL (0.2-0.5) 10/16/16 09:40 Gamma Globulins 1.0 g/dL (0.8-1.7) 10/16/16 09:40 Abnorm Protein Band 1 see below 10/16/16 09:40 PEP Interpretation see below H 10/16/16 09:40 Prostate Specific Ag 2088.00 ng/mL (0.00-4.00) H 10/17/16 19:25 Vitamin B12 443.6 pg/mL (211-911) 10/13/16 22:45 Folate 7.55 ng/mL (7.3-26.0) 10/16/16 09:40 Urine Color Yellow (Yellow) 10/13/16 15:26 Urine Turbidity Clear (Clear) 10/13/16 15:26 Urine pH 6.0 (5.0-7.0) 10/13/16 15:26 Ur Specific [place] 1.011 (1.003-1.030) 10/13/16 15:26 Urine Protein <15 mg/dl mg/dL (Negative) 10/13/16 15:26 Urine Glucose (UA) Neg mg/dL (Negative) 10/13/16 15:26 Urine Ketones Neg mg/dL (Negative) 10/13/16 15:26 Urine Blood Sm (Negative) 10/13/16 15:26 Urine Nitrite Neg (Negative) 10/13/16 15:26 Urine Bilirubin Neg (Negative) 10/13/16 15:26 Urine Urobilinogen < 2.0 mg/dL (<2.0) 10/13/16 15:26 Ur Leukocyte Esterase Mod (Negative) 10/13/16 15:26 Urine WBC (Auto) 17.0 /HPF (0.0-6.0) H 10/13/16 15:26 Urine RBC (Auto) 2.0 /HPF (0.0-6.0) 10/13/16 15:26 U Epithel Cells (Auto) < 1.0 /HPF (0-13.0) 10/13/16 15:26 Urine Mucus Few /HPF 10/13/16 15:26 Blood Type B POSITIVE 10/14/16 14:40 Antibody Screen TNR 10/14/16 14:40 SHADI Antibody Screen Negative 10/14/16 14:40 Crossmatch See Detail 10/14/16 14:40
--- NOTE | 2016-10-21 13:16 | Progress Note ---
Assessment and Plan Assessment and plan: Patient is a 71-year-old gentleman who has a history of prostate cancer, chronic tobacco use disorder, bipolar disorder, and idiopathic peripheral neuropathy who presented to the emergency department on account of cough with fever 101.8 and nonproductive cough. He was found to have sepsis due to pneumonia and failure to thrive Bone scan Imaging reviewed, diffuse bony metastases Sepsis due to pneumonia * Continue antibiotics, will need seven-day course, till 10/20 Metastatic prostate cancer * Follows with Dr. Chavez, his input is appreciated * Patient states that he received hormone shots, surgery and radiation treatments. But he is aware that his cancer is widely Metastatic to bone * Oncology consultation appreciated, bone scan reviewed * On his serum protein electrophoreses there was a question bienvenido abnormal band. immunofixation ordered by oncology Hypernatremia and Hypokalemia give d5w plus KCl x 1 bag - Bilateral hydroureter /urinary retention * Status post Hansen placement, patient will need to be discharged with a Hansen - Toxic metabolic encephalopathy-was due to sepsis, also has waxing and waning delirium due to dementia. He is now back to his baseline mental status. - Anemia secondary to malignancy, chronic disease * Status post multiple transfusions, hemoglobin now stable -Severe Protien calorie Malnutrition * Dietitian consults Etoh dependence * No signs of withdrawal, was on Antabuse at home. continue to monitor Severe Debility * continue PT for SNF placement, CM input appreciated UTI was ruled out via negative urine culture DVT ppx lovenox History Interval history: Patient feels well has no complaints, he states that he really does not want to go home with his daughter. She's using his money to take care of her children, who are his 2 grown grandsons. He would like to go to a jail Hospitalist Physical - Physical exam Narrative exam: General: Frail appearance, very thin HEENT: MMM, EOMI, wearing an eye patch cardiac: S1-S2 heard lungs: Bilateral crackles abdomen: soft, nontender, nondistended bowel sounds positive extremities: no edema clubbing or cyanosis Skin: no rash or lesion Neuro: no focal deficit Psych: appropriate behavior and mood, cognition intact - Constitutional Vitals: Temp Pulse Resp BP Pulse Ox 98.2 F 88 22 101/47 96 10/21/16 08:40 10/21/16 08:55 10/21/16 10:22 10/21/16 08:40 10/21/16 08:55 General appearance: Present: mild distress, other (blind on the left eye) Results - Labs CBC & Chem 7: 10/21/16 05:25 10/20/16 04:05 Labs: Laboratory Last Values WBC 9.1 K/mm3 (4.5-11.0) 10/21/16 05:25 RBC 3.31 M/mm3 (3.65-5.03) L 10/21/16 05:25 Hgb 8.7 gm/dl (11.8-15.2) L 10/21/16 05:25 Hct 27.8 % (35.5-45.6) L 10/21/16 05:25 MCV 84 fl (84-94) 10/21/16 05:25 MCH 26 pg (28-32) L 10/21/16 05:25 MCHC 31 % (32-34) L 10/21/16 05:25 RDW 20.0 % (13.2-15.2) H 10/21/16 05:25 Plt Count 381 K/mm3 (140-440) 10/21/16 05:25 Lymph % (Auto) Strawberry Grower 10/21/16 05:25 [place] % (Auto) Strawberry Grower 10/21/16 05:25 Eos % (Auto) Strawberry Grower 10/21/16 05:25 Baso % (Auto) Strawberry Grower 10/21/16 05:25 Lymph # Strawberry Grower 10/21/16 05:25 [place] # Strawberry Grower 10/21/16 05:25 Eos # Strawberry Grower 10/21/16 05:25 Baso # Strawberry Grower 10/21/16 05:25 Add Manual Diff Complete 10/21/16 05:25 Total Counted 100 10/21/16 05:25 Seg Neutrophils % Strawberry Grower 10/21/16 05:25 Seg Neuts % (Manual) 82.0 % (40.0-70.0) H 10/21/16 05:25 Band Neutrophils % 1.0 % 10/21/16 05:25 Lymphocytes % (Manual) 8.0 % (13.4-35.0) L 10/21/16 05:25 Reactive Lymphs % (Man) 0 % 10/21/16 05:25 Monocytes % (Manual) 2.0 % (0.0-7.3) 10/21/16 05:25 Eosinophils % (Manual) 1.0 % (0.0-4.3) 10/21/16 05:25 Basophils % (Manual) 0 % (0.0-1.8) 10/21/16 05:25 Metamyelocytes % 1.0 % 10/21/16 05:25 Myelocytes % 5.0 % 10/21/16 05:25 Promyelocytes % 0 % 10/21/16 05:25 Blast Cells % 0 % 10/21/16 05:25 Nucleated RBC % Not Reportable 10/21/16 05:25 Seg Neutrophils # Strawberry Grower 10/21/16 05:25 Seg Neutrophils # Man 7.5 K/mm3 (1.8-7.7) 10/21/16 05:25 Band Neutrophils # 0.1 K/mm3 10/21/16 05:25 Lymphocytes # (Manual) 0.7 K/mm3 (1.2-5.4) L 10/21/16 05:25 Abs React Lymphs (Man) 0.0 K/mm3 10/21/16 05:25 Monocytes # (Manual) 0.2 K/mm3 (0.0-0.8) 10/21/16 05:25 Eosinophils # (Manual) 0.1 K/mm3 (0.0-0.4) 10/21/16 05:25 Basophils # (Manual) 0.0 K/mm3 (0.0-0.1) 10/21/16 05:25 Metamyelocytes # 0.1 K/mm3 10/21/16 05:25 Myelocytes # 0.5 K/mm3 10/21/16 05:25 Promyelocytes # 0.0 K/mm3 10/21/16 05:25 Blast Cells # 0.0 K/mm3 10/21/16 05:25 WBC Morphology Not Reportable 10/21/16 05:25 Hypersegmented Neuts Not Reportable 10/21/16 05:25 Hyposegmented Neuts Not Reportable 10/21/16 05:25 Hypogranular Neuts Not Reportable 10/21/16 05:25 Smudge Cells Not Reportable 10/21/16 05:25 Toxic Granulation Not Reportable 10/21/16 05:25 Toxic Vacuolation Not Reportable 10/21/16 05:25 Dohle Bodies Not Reportable 10/21/16 05:25 Pelger-Huet Anomaly Not Reportable 10/21/16 05:25 Buck Rods Not Reportable 10/21/16 05:25 Platelet Estimate Appears normal 10/21/16 05:25 Clumped Platelets Not Reportable 10/21/16 05:25 Plt Clumps, EDTA Not Reportable 10/21/16 05:25 Large Platelets Not Reportable 10/21/16 05:25 Giant Platelets Not Reportable 10/21/16 05:25 Platelet Satelliting Not Reportable 10/21/16 05:25 Plt Morphology Comment Not Reportable 10/21/16 05:25 RBC Morphology Not Reportable 10/21/16 05:25 Dimorphic RBCs Not Reportable 10/21/16 05:25 Polychromasia Rare 10/21/16 05:25 Hypochromasia Few 10/21/16 05:25 Poikilocytosis Not Reportable 10/21/16 05:25 Anisocytosis 1+ 10/21/16 05:25 Microcytosis Not Reportable 10/21/16 05:25 Macrocytosis Not Reportable 10/21/16 05:25 Spherocytes Not Reportable 10/21/16 05:25 Pappenheimer Bodies Not Reportable 10/21/16 05:25 Sickle Cells Not Reportable 10/21/16 05:25 Target Cells Few 10/21/16 05:25 Tear Drop Cells Rare 10/21/16 05:25 Ovalocytes Not Reportable 10/21/16 05:25 Helmet Cells Not Reportable 10/21/16 05:25 Meyer-[place] Bodies Not Reportable 10/21/16 05:25 [place] Rings Not Reportable 10/21/16 05:25 [place] Cells Not Reportable 10/21/16 05:25 Bite Cells Not Reportable 10/21/16 05:25 Crenated Cell Not Reportable 10/21/16 05:25 Elliptocytes Not Reportable 10/21/16 05:25 Acanthocytes (Spur) Not Reportable 10/21/16 05:25 Rouleaux Not Reportable 10/21/16 05:25 Hemoglobin C Crystals Not Reportable 10/21/16 05:25 Schistocytes Not Reportable 10/21/16 05:25 Malaria parasites Not Reportable 10/21/16 05:25 Percent Retic 1.07 % (0.78-2.58) 10/16/16 09:40 Pranay Bodies Not Reportable 10/21/16 05:25 Hem Pathologist Commnt No 10/21/16 05:25 PT 15.1 Sec. (12.2-14.9) H 10/13/16 15:25 INR 1.13 (0.87-1.13) 10/13/16 15:25 POC ABG pH 7.465 (7.35-7.45) H 10/16/16 23:45 POC ABG pCO2 31.5 (35-45) L 10/16/16 23:45 POC ABG pO2 88 (80-105) 10/16/16 23:45 POC ABG HCO3 22.7 10/16/16 23:45 POC ABG Total CO2 24 10/16/16 23:45 POC ABG O2 Sat 97 10/16/16 23:45 POC ABG Base Excess -1 10/16/16 23:45 VBG pH 7.282 (7.320-7.420) L 10/13/16 15:25 FiO2 40 % 10/16/16 23:45 Sodium 146 mmol/L (137-145) H 10/20/16 04:05 Potassium 3.5 mmol/L (3.6-5.0) L 10/20/16 04:05 Chloride 102.6 mmol/L (98-107) 10/20/16 04:05 Carbon Dioxide 34 mmol/L (22-30) H D 10/20/16 04:05 Anion Gap 13 mmol/L 10/20/16 04:05 BUN 13 mg/dL (9-20) 10/20/16 04:05 Creatinine 0.7 mg/dL (0.8-1.5) L 10/20/16 04:05 Estimated GFR > 60 ml/min 10/20/16 04:05 BUN/Creatinine Ratio 18.57 % 10/20/16 04:05 Glucose 110 mg/dL (75-100) H 10/20/16 04:05 Lactic Acid 1.80 mmol/L (0.7-2.0) 10/15/16 08:05 Calcium 7.8 mg/dL (8.4-10.2) L 10/20/16 04:05 Iron 26 ug/dL (49-181) L 10/16/16 09:40 TIBC 144.20 mcg/dL (250-450) L 10/16/16 09:40 % Saturation 18.03 % 10/16/16 09:40 Transferrin 103 mg/dl (180-329) L 10/16/16 09:40 Ferritin 1072.0 ng/mL (13.0-400.0) H 10/16/16 09:40 Total Bilirubin 0.20 mg/dL (0.1-1.2) 10/16/16 05:04 AST 20 units/L (5-40) 10/16/16 05:04 ALT 13 units/L (7-56) 10/16/16 05:04 Alkaline Phosphatase 697 units/L (35-129) H 10/16/16 05:04 Serum Total Protein 5.6 g/dL (6.1-8.1) L 10/16/16 09:40 Total Protein 5.2 g/dL (6.3-8.2) L 10/16/16 05:04 Albumin 2.2 g/dL (3.8-4.8) L 10/16/16 09:40 Albumin/Globulin Ratio 0.9 % 10/16/16 05:04 Jykaq-9-Rkfzlelfj 0.6 g/dL (0.2-0.3) H 10/16/16 09:40 Gtqtu-9-Pgugeuhzs 1.2 g/dL (0.5-0.9) H 10/16/16 09:40 Beta Globulins 0.3 g/dL (0.2-0.5) 10/16/16 09:40 Gamma Globulins 1.0 g/dL (0.8-1.7) 10/16/16 09:40 Abnorm Protein Band 1 see below 10/16/16 09:40 PEP Interpretation see below H 10/16/16 09:40 Prostate Specific Ag 2088.00 ng/mL (0.00-4.00) H 10/17/16 19:25 Vitamin B12 443.6 pg/mL (211-911) 10/13/16 22:45 Folate 7.55 ng/mL (7.3-26.0) 10/16/16 09:40 Urine Color Yellow (Yellow) 10/13/16 15:26 Urine Turbidity Clear (Clear) 10/13/16 15:26 Urine pH 6.0 (5.0-7.0) 10/13/16 15:26 Ur Specific [place] 1.011 (1.003-1.030) 10/13/16 15:26 Urine Protein <15 mg/dl mg/dL (Negative) 10/13/16 15:26 Urine Glucose (UA) Neg mg/dL (Negative) 10/13/16 15:26 Urine Ketones Neg mg/dL (Negative) 10/13/16 15:26 Urine Blood Sm (Negative) 10/13/16 15:26 Urine Nitrite Neg (Negative) 10/13/16 15:26 Urine Bilirubin Neg (Negative) 10/13/16 15:26 Urine Urobilinogen < 2.0 mg/dL (<2.0) 10/13/16 15:26 Ur Leukocyte Esterase Mod (Negative) 10/13/16 15:26 Urine WBC (Auto) 17.0 /HPF (0.0-6.0) H 10/13/16 15:26 Urine RBC (Auto) 2.0 /HPF (0.0-6.0) 10/13/16 15:26 U Epithel Cells (Auto) < 1.0 /HPF (0-13.0) 10/13/16 15:26 Urine Mucus Few /HPF 10/13/16 15:26 Blood Type B POSITIVE 10/14/16 14:40 Antibody Screen TNR 10/14/16 14:40 SHADI Antibody Screen Negative 10/14/16 14:40 Crossmatch See Detail 10/14/16 14:40
[2016-10-21] MEDS: SENOKOT S PO SCH (21:48)
[2016-10-21] MEDS: RisperDAL PO SCH (21:50)
[2016-10-21] MEDS: LOVENOX SUB-Q SCH (21:51)
[2016-10-21] MEDS: REMERON PO SCH (21:51)
[2016-10-22] MEDS: DUONEB *Not for PRN Use IH SCH ×5 (00:21→22:57)
[2016-10-22] MEDS: MUCOMYST INHALATION INHALATION SCH ×4 (00:22→20:40)
[2016-10-22 04:52] LABS: Hemoglobin 8.9 gm/dl (11.8-15.2); Mean Corpuscular HGB Conc 32 % (32-34); Mean Corpuscular Hemoglobin 27 pg (28-32); Mean Corpuscular Volume 83 fl (84-94); Platelet Count 399 K/mm3 (140-440); Red Blood Count 3.36 M/mm3 (3.65-5.03); Red Cell Distribution Width 19.6 % (13.2-15.2); White Blood Count 9.1 K/mm3 (4.5-11.0)
[2016-10-22 05:01] LABS: Anion Gap 15 mmol/L; Blood Urea Nitrogen 15 mg/dL (9-20); Calcium 8.2 mg/dL (8.4-10.2); Carbon Dioxide 34 mmol/L (22-30); Chloride 101.1 mmol/L (98-107); Glucose 90 mg/dL (75-100); Potassium 3.7 mmol/L (3.6-5.0); Sodium 146 mmol/L (137-145)
[2016-10-22] MEDS: ULTRAM PO PRN ×2 (06:34→16:56)
[2016-10-22 06:52] LABS: Basophils % (Manual) 0 % (0.0-1.8); Blastocytes % (Manual) 0 %
[2016-10-22 06:54] LABS: Target Cells Few
[2016-10-22 06:55] LABS: Diff Status Complete; Platelet Estimate Cons
[2016-10-22] MEDS: MIRALAX 3350 PO SCH ×2 (08:49→10:25)
[2016-10-22] MEDS: ZOLOFT PO SCH ×2 (08:50→10:25)
[2016-10-22] MEDS: NEURONTIN PO SCH ×3 (08:50→21:32)
[2016-10-22] MEDS: PROTONIX PO SCH ×2 (08:50→10:25)
--- NOTE | 2016-10-22 11:16 | Discharge Summary ---
Providers - Providers Date of Admission: 10/13/16 21:33 Attending physician: ROMAN GARCIA MD 10/15/16 08:14 Consult to Physician [CONS] Routine Consulting Provider: AISHA MORIN Reason For Exam: ANEMIA, METASTATIC PROSTATE CA Place consult to:: Dr. Morin Notified:: Anne Phone number called:: [phone] Was contact made?: Yes If yes, spoke with:: Anne Time called:: 09:45 10/15/16 15:07 Consult to Physician [CONS] Routine Consulting Provider: FEDERICO CHAVEZ Reason For Exam: B/l hydronephrosis Place consult to:: [facility]/Dr. 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 He was found to have sepsis due to pneumonia and failure to thrive. He completed a course of antibiotics for treatment of pneumonia. He was found to have urinary obstruction for which Hansen cath was placed. Patient is known to have prostate cancer and he was commented by his urologist Dr. Chavez will he was in the hospital. He also had some dehydration for which she received IV fluids. His electrolytes were repleted. He had altered mental status which is due to sepsis and he improved back to his baseline mentation. He also received dietitian consult for malnutrition. He suffers from anemia of chronic disease due to his metastatic cancer for which she received blood transfusion. He is a chronic alcohol abuser who takes Antabuse at home. He was monitored without incident and had no signs of withdrawal. Due to his debility he was receiving PT while in hospital and he is going to a senior care facility. Discharge diagnoses Sepsis bacterial pneumonia Hyponatremia Hypokalemia Dehydration Bilateral hydroureter, obstructive uropathy Toxic metabolic encephalopathy Anemia of chronic disease Severe protein calorie malnutrition Alcohol dependence Severe debility Complete immobility due to frailty Disposition: DC/[place]-03 SNF [facility] Time spent for discharge: 33 minutes Core Measure Documentation - Palliative Care Palliative Care/ Comfort Measures: Not Applicable - Core Measures Any of the following diagnoses?: none Exam - Physical Exam Narrative exam: General: Frail appearance, very thin HEENT: MMM, EOMI, wearing an eye patch cardiac: S1-S2 heard lungs: Bilateral crackles abdomen: soft, nontender, nondistended bowel sounds positive extremities: no edema clubbing or cyanosis Skin: no rash or lesion Neuro: no focal deficit Psych: appropriate behavior and mood, cognition intact - Constitutional Vitals: Temp Pulse Resp BP Pulse Ox 98.7 F 93 H 20 122/50 98 10/22/16 09:44 10/22/16 10:43 10/22/16 10:43 10/22/16 09:44 10/22/16 10:43 Plan Follow up with: PRIMARY MD SIMI [Primary Care Provider] - 3-5 Days CYNDIE AGARWAL MD [Staff Physician] - 7 Days Prescriptions: clonazePAM 1 mg PO QHS #1 tablet traMADol [Ultram 50 MG tab] 50 mg PO Q6H PRN #7 tablet PRN Reason: Pain, Moderate (4-6)
--- NOTE | 2016-10-22 16:01 | Progress Note ---
Assessment and Plan Assessment and plan: Patient is a 71-year-old gentleman who has a history of prostate cancer, chronic tobacco use disorder, bipolar disorder, and idiopathic peripheral neuropathy who presented to the emergency department on account of cough with fever 101.8 and nonproductive cough. He was found to have sepsis due to pneumonia and failure to thrive Bone scan Imaging reviewed, diffuse bony metastases Sepsis due to pneumonia * Has completed a course of antibiotics Metastatic prostate cancer * Follows with Dr. Chavez, his input is appreciated * Patient states that he received hormone shots, surgery and radiation treatments. But he is aware that his cancer is widely Metastatic to bone * Oncology consultation appreciated, bone scan reviewed * On his serum protein electrophoreses there was a question bienvenido abnormal band. immunofixation ordered by oncology Hypernatremia and Hypokalemia Received IV fluids and potassium repletion - Bilateral hydroureter /urinary retention * Status post Hansen placement, patient will need to be discharged with a Hansen - Toxic metabolic encephalopathy-was due to sepsis, also has waxing and waning delirium due to dementia. He is now back to his baseline mental status. - Anemia secondary to malignancy, chronic disease * Status post multiple transfusions, hemoglobin now stable -Severe Protien calorie Malnutrition * Dietitian consults Etoh dependence * No signs of withdrawal, was on Antabuse at home. continue to monitor Severe Debility * continue PT for SNF placement, CM input appreciated UTI was ruled out via negative urine culture DVT ppx lovenox History Interval history: Patient feels well has no complaints, he states that he really does not want to go home with his daughter. She's using his money to take care of her children, who are his 2 grown grandsons. He would like to go to a snf Hospitalist Physical - Physical exam Narrative exam: General: Frail appearance, very thin HEENT: MMM, EOMI, R eye enucleated cardiac: S1-S2 heard lungs: Bilateral crackles abdomen: soft, nontender, nondistended bowel sounds positive extremities: no edema clubbing or cyanosis Skin: no rash or lesion Neuro: no focal deficit Psych: appropriate behavior and mood, cognition intact - Constitutional Vitals: Temp Pulse Resp BP Pulse Ox 98.7 F 90 20 122/50 92 10/22/16 09:44 10/22/16 11:12 10/22/16 11:12 10/22/16 09:44 10/22/16 11:13 General appearance: Present: mild distress, other (blind on the left eye) Results - Labs CBC & Chem 7: 10/22/16 03:57 10/22/16 03:57 Labs: Laboratory Last Values WBC 9.1 K/mm3 (4.5-11.0) 10/22/16 03:57 RBC 3.36 M/mm3 (3.65-5.03) L 10/22/16 03:57 Hgb 8.9 gm/dl (11.8-15.2) L 10/22/16 03:57 Hct 28.0 % (35.5-45.6) L 10/22/16 03:57 MCV 83 fl (84-94) L 10/22/16 03:57 MCH 27 pg (28-32) L 10/22/16 03:57 MCHC 32 % (32-34) 10/22/16 03:57 RDW 19.6 % (13.2-15.2) H 10/22/16 03:57 Plt Count 399 K/mm3 (140-440) 10/22/16 03:57 Lymph % (Auto) Accredited Pharmacy Technician 10/21/16 05:25 Pepin % (Auto) Accredited Pharmacy Technician 10/21/16 05:25 Eos % (Auto) Accredited Pharmacy Technician 10/21/16 05:25 Baso % (Auto) Accredited Pharmacy Technician 10/21/16 05:25 Lymph # Accredited Pharmacy Technician 10/21/16 05:25 Pepin # Accredited Pharmacy Technician 10/21/16 05:25 Eos # Accredited Pharmacy Technician 10/21/16 05:25 Baso # Accredited Pharmacy Technician 10/21/16 05:25 Add Manual Diff Complete 10/22/16 03:57 Total Counted 100 10/22/16 03:57 Seg Neutrophils % Accredited Pharmacy Technician 10/21/16 05:25 Seg Neuts % (Manual) 89.0 % (40.0-70.0) H 10/22/16 03:57 Band Neutrophils % 0 % 10/22/16 03:57 Lymphocytes % (Manual) 7.0 % (13.4-35.0) L 10/22/16 03:57 Reactive Lymphs % (Man) 0 % 10/22/16 03:57 Monocytes % (Manual) 2.0 % (0.0-7.3) 10/22/16 03:57 Eosinophils % (Manual) 1.0 % (0.0-4.3) 10/22/16 03:57 Basophils % (Manual) 0 % (0.0-1.8) 10/22/16 03:57 Metamyelocytes % 1.0 % 10/22/16 03:57 Myelocytes % 0 % 10/22/16 03:57 Promyelocytes % 0 % 10/22/16 03:57 Blast Cells % 0 % 10/22/16 03:57 Nucleated RBC % Not Reportable 10/22/16 03:57 Seg Neutrophils # Accredited Pharmacy Technician 10/21/16 05:25 Seg Neutrophils # Man 8.1 K/mm3 (1.8-7.7) H 10/22/16 03:57 Band Neutrophils # 0.0 K/mm3 10/22/16 03:57 Lymphocytes # (Manual) 0.6 K/mm3 (1.2-5.4) L 10/22/16 03:57 Abs React Lymphs (Man) 0.0 K/mm3 10/22/16 03:57 Monocytes # (Manual) 0.2 K/mm3 (0.0-0.8) 10/22/16 03:57 Eosinophils # (Manual) 0.1 K/mm3 (0.0-0.4) 10/22/16 03:57 Basophils # (Manual) 0.0 K/mm3 (0.0-0.1) 10/22/16 03:57 Metamyelocytes # 0.1 K/mm3 10/22/16 03:57 Myelocytes # 0.0 K/mm3 10/22/16 03:57 Promyelocytes # 0.0 K/mm3 10/22/16 03:57 Blast Cells # 0.0 K/mm3 10/22/16 03:57 WBC Morphology Not Reportable 10/22/16 03:57 Hypersegmented Neuts Not Reportable 10/22/16 03:57 Hyposegmented Neuts Not Reportable 10/22/16 03:57 Hypogranular Neuts Not Reportable 10/22/16 03:57 Smudge Cells Not Reportable 10/22/16 03:57 Toxic Granulation Not Reportable 10/22/16 03:57 Toxic Vacuolation Not Reportable 10/22/16 03:57 Dohle Bodies Not Reportable 10/22/16 03:57 Pelger-Huet Anomaly Not Reportable 10/22/16 03:57 Buck Rods Not Reportable 10/22/16 03:57 Platelet Estimate Cons 10/22/16 03:57 Clumped Platelets Not Reportable 10/22/16 03:57 Plt Clumps, EDTA Not Reportable 10/22/16 03:57 Large Platelets Not Reportable 10/22/16 03:57 Giant Platelets Not Reportable 10/22/16 03:57 Platelet Satelliting Not Reportable 10/22/16 03:57 Plt Morphology Comment Not Reportable 10/22/16 03:57 RBC Morphology Not Reportable 10/22/16 03:57 Dimorphic RBCs Not Reportable 10/22/16 03:57 Polychromasia Not Reportable 10/22/16 03:57 Hypochromasia Not Reportable 10/22/16 03:57 Poikilocytosis Not Reportable 10/22/16 03:57 Anisocytosis Not Reportable 10/22/16 03:57 Microcytosis Not Reportable 10/22/16 03:57 Macrocytosis Not Reportable 10/22/16 03:57 Spherocytes Not Reportable 10/22/16 03:57 Pappenheimer Bodies Not Reportable 10/22/16 03:57 Sickle Cells Not Reportable 10/22/16 03:57 Target Cells Few 10/22/16 03:57 Tear Drop Cells Not Reportable 10/22/16 03:57 Ovalocytes Not Reportable 10/22/16 03:57 Helmet Cells Not Reportable 10/22/16 03:57 [place] Bodies Not Reportable 10/22/16 03:57 [place] Rings Not Reportable 10/22/16 03:57 [place] Cells Not Reportable 10/22/16 03:57 Bite Cells Not Reportable 10/22/16 03:57 Crenated Cell Not Reportable 10/22/16 03:57 Elliptocytes Not Reportable 10/22/16 03:57 Acanthocytes (Spur) Not Reportable 10/22/16 03:57 Rouleaux Not Reportable 10/22/16 03:57 Hemoglobin C Crystals Not Reportable 10/22/16 03:57 Schistocytes Not Reportable 10/22/16 03:57 Malaria parasites Not Reportable 10/22/16 03:57 Percent Retic 1.07 % (0.78-2.58) 10/16/16 09:40 Pranay Bodies Not Reportable 10/22/16 03:57 Hem Pathologist Commnt No 10/22/16 03:57 PT 15.1 Sec. (12.2-14.9) H 10/13/16 15:25 INR 1.13 (0.87-1.13) 10/13/16 15:25 POC ABG pH 7.465 (7.35-7.45) H 10/16/16 23:45 POC ABG pCO2 31.5 (35-45) L 10/16/16 23:45 POC ABG pO2 88 (80-105) 10/16/16 23:45 POC ABG HCO3 22.7 10/16/16 23:45 POC ABG Total CO2 24 10/16/16 23:45 POC ABG O2 Sat 97 10/16/16 23:45 POC ABG Base Excess -1 10/16/16 23:45 VBG pH 7.282 (7.320-7.420) L 10/13/16 15:25 FiO2 40 % 10/16/16 23:45 Sodium 146 mmol/L (137-145) H 10/22/16 03:57 Potassium 3.7 mmol/L (3.6-5.0) 10/22/16 03:57 Chloride 101.1 mmol/L (98-107) 10/22/16 03:57 Carbon Dioxide 34 mmol/L (22-30) H 10/22/16 03:57 Anion Gap 15 mmol/L 10/22/16 03:57 BUN 15 mg/dL (9-20) 10/22/16 03:57 Creatinine 0.5 mg/dL (0.8-1.5) L 10/22/16 03:57 Estimated GFR > 60 ml/min 10/22/16 03:57 BUN/Creatinine Ratio 30.00 % 10/22/16 03:57 Glucose 90 mg/dL (75-100) 10/22/16 03:57 Lactic Acid 1.80 mmol/L (0.7-2.0) 10/15/16 08:05 Calcium 8.2 mg/dL (8.4-10.2) L 10/22/16 03:57 Iron 26 ug/dL (49-181) L 10/16/16 09:40 TIBC 144.20 mcg/dL (250-450) L 10/16/16 09:40 % Saturation 18.03 % 10/16/16 09:40 Transferrin 103 mg/dl (180-329) L 10/16/16 09:40 Ferritin 1072.0 ng/mL (13.0-400.0) H 10/16/16 09:40 Total Bilirubin 0.20 mg/dL (0.1-1.2) 10/16/16 05:04 AST 20 units/L (5-40) 10/16/16 05:04 ALT 13 units/L (7-56) 10/16/16 05:04 Alkaline Phosphatase 697 units/L (35-129) H 10/16/16 05:04 Serum Total Protein 5.6 g/dL (6.1-8.1) L 10/16/16 09:40 Total Protein 5.2 g/dL (6.3-8.2) L 10/16/16 05:04 Albumin 2.2 g/dL (3.8-4.8) L 10/16/16 09:40 Albumin/Globulin Ratio 0.9 % 10/16/16 05:04 Ojvzs-0-Jnevwplzf 0.6 g/dL (0.2-0.3) H 10/16/16 09:40 Zcrco-5-Tpqkrjbfg 1.2 g/dL (0.5-0.9) H 10/16/16 09:40 Beta Globulins 0.3 g/dL (0.2-0.5) 10/16/16 09:40 Gamma Globulins 1.0 g/dL (0.8-1.7) 10/16/16 09:40 Abnorm Protein Band 1 see below 10/16/16 09:40 PEP Interpretation see below H 10/16/16 09:40 Prostate Specific Ag 2088.00 ng/mL (0.00-4.00) H 10/17/16 19:25 Vitamin B12 443.6 pg/mL (211-911) 10/13/16 22:45 Folate 7.55 ng/mL (7.3-26.0) 10/16/16 09:40 Urine Color Yellow (Yellow) 10/13/16 15:26 Urine Turbidity Clear (Clear) 10/13/16 15:26 Urine pH 6.0 (5.0-7.0) 10/13/16 15:26 Ur Specific [place] 1.011 (1.003-1.030) 10/13/16 15:26 Urine Protein <15 mg/dl mg/dL (Negative) 10/13/16 15:26 Urine Glucose (UA) Neg mg/dL (Negative) 10/13/16 15:26 Urine Ketones Neg mg/dL (Negative) 10/13/16 15:26 Urine Blood Sm (Negative) 10/13/16 15:26 Urine Nitrite Neg (Negative) 10/13/16 15:26 Urine Bilirubin Neg (Negative) 10/13/16 15:26 Urine Urobilinogen < 2.0 mg/dL (<2.0) 10/13/16 15:26 Ur Leukocyte Esterase Mod (Negative) 10/13/16 15:26 Urine WBC (Auto) 17.0 /HPF (0.0-6.0) H 10/13/16 15:26 Urine RBC (Auto) 2.0 /HPF (0.0-6.0) 10/13/16 15:26 U Epithel Cells (Auto) < 1.0 /HPF (0-13.0) 10/13/16 15:26 Urine Mucus Few /HPF 10/13/16 15:26 Blood Type B POSITIVE 10/14/16 14:40 Antibody Screen TNR 10/14/16 14:40 SHADI Antibody Screen Negative 10/14/16 14:40 Crossmatch See Detail 10/14/16 14:40
[2016-10-22] MEDS: REMERON PO SCH (21:31)
[2016-10-22] MEDS: LOVENOX SUB-Q SCH (21:32)
[2016-10-22] MEDS: RisperDAL PO SCH (21:32)
[2016-10-22] MEDS: SENOKOT S PO SCH (21:33)
[2016-10-23] MEDS: MUCOMYST INHALATION INHALATION SCH (00:20)
[2016-10-23] MEDS: ULTRAM PO PRN (02:05)
[2016-10-23 05:21] LABS: Hemoglobin 9.1 gm/dl (11.8-15.2); Mean Corpuscular HGB Conc 31 % (32-34); Mean Corpuscular Hemoglobin 26 pg (28-32); Mean Corpuscular Volume 84 fl (84-94); Platelet Count 416 K/mm3 (140-440); Red Blood Count 3.46 M/mm3 (3.65-5.03); Red Cell Distribution Width 19.5 % (13.2-15.2); White Blood Count 10.4 K/mm3 (4.5-11.0)
[2016-10-23 06:16] LABS: Blastocytes % (Manual) 0 %
[2016-10-23 06:17] LABS: Diff Status Complete; Platelet Estimate Consistent w Auto; Target Cells Few
[2016-10-23] MEDS: DUONEB *Not for PRN Use IH SCH ×3 (07:39→19:22)
[2016-10-23] MEDS: PROTONIX PO SCH ×2 (08:24→10:00)
[2016-10-23] MEDS: ZOLOFT PO SCH ×2 (08:24→10:00)
[2016-10-23] MEDS: NEURONTIN PO SCH ×3 (08:25→21:11)
[2016-10-23] MEDS: MIRALAX 3350 PO SCH ×2 (08:25→10:00)
--- NOTE | 2016-10-23 11:28 | Progress Note ---
Assessment and Plan Assessment and plan: Patient is a 71-year-old gentleman who has a history of prostate cancer, chronic tobacco use disorder, bipolar disorder, and idiopathic peripheral neuropathy who presented to the emergency department on account of cough with fever 101.8 and nonproductive cough. He was found to have sepsis due to pneumonia and failure to thrive Bone scan Imaging reviewed, diffuse bony metastases Sepsis due to pneumonia * Has completed a course of antibiotics Metastatic prostate cancer * Follows with Dr. Chavez, his input is appreciated * Patient states that he received hormone shots, surgery and radiation treatments. But he is aware that his cancer is widely Metastatic to bone * Oncology consultation appreciated, bone scan reviewed * On his serum protein electrophoreses there was a question bienvenido abnormal band. immunofixation ordered by oncology Hypernatremia and Hypokalemia Received IV fluids and potassium repletion - Bilateral hydroureter /urinary retention * Status post Hansen placement, patient will need to be discharged with a Hansen - Toxic metabolic encephalopathy-was due to sepsis, also has waxing and waning delirium due to dementia. He is now back to his baseline mental status. - Anemia secondary to malignancy, chronic disease * Status post multiple transfusions, hemoglobin now stable -Severe Protien calorie Malnutrition * Dietitian consults Etoh dependence * No signs of withdrawal, was on Antabuse at home. continue to monitor Severe Debility * continue PT for SNF placement, CM input appreciated UTI was ruled out via negative urine culture DVT ppx lovenox History Interval history: Patient feels well has no complaints, he states that he really does not want to go home with his daughter. She's using his money to take care of her children, who are his 2 grown grandsons. He would like to go to a prison Hospitalist Physical - Physical exam Narrative exam: General: Frail appearance, very thin HEENT: MMM, EOMI, R eye enucleated cardiac: S1-S2 heard lungs: Bilateral crackles abdomen: soft, nontender, nondistended bowel sounds positive extremities: no edema clubbing or cyanosis Skin: no rash or lesion Neuro: no focal deficit Psych: appropriate behavior and mood, cognition intact - Constitutional Vitals: Temp Pulse Resp BP Pulse Ox 98.2 F 92 H 20 109/60 95 10/23/16 09:40 10/23/16 09:40 10/23/16 09:40 10/23/16 09:40 10/23/16 07:40 General appearance: Present: mild distress, other (blind on the left eye) Results - Labs CBC & Chem 7: 10/23/16 04:14 10/22/16 03:57 Labs: Laboratory Last Values WBC 10.4 K/mm3 (4.5-11.0) 10/23/16 04:14 RBC 3.46 M/mm3 (3.65-5.03) L 10/23/16 04:14 Hgb 9.1 gm/dl (11.8-15.2) L 10/23/16 04:14 Hct 29.0 % (35.5-45.6) L 10/23/16 04:14 MCV 84 fl (84-94) 10/23/16 04:14 MCH 26 pg (28-32) L 10/23/16 04:14 MCHC 31 % (32-34) L 10/23/16 04:14 RDW 19.5 % (13.2-15.2) H 10/23/16 04:14 Plt Count 416 K/mm3 (140-440) 10/23/16 04:14 Lymph % (Auto) [place] 10/21/16 05:25 [place] % (Auto) [place] 10/21/16 05:25 Eos % (Auto) [place] 10/21/16 05:25 Baso % (Auto) [place] 10/21/16 05:25 Lymph # [place] 10/21/16 05:25 [place] # [place] 10/21/16 05:25 Eos # [place] 10/21/16 05:25 Baso # [place] 10/21/16 05:25 Add Manual Diff Complete 10/23/16 04:14 Total Counted 100 10/23/16 04:14 Seg Neutrophils % [place] 10/21/16 05:25 Seg Neuts % (Manual) 84.0 % (40.0-70.0) H 10/23/16 04:14 Band Neutrophils % 2.0 % 10/23/16 04:14 Lymphocytes % (Manual) 8.0 % (13.4-35.0) L 10/23/16 04:14 Reactive Lymphs % (Man) 0 % 10/23/16 04:14 Monocytes % (Manual) 2.0 % (0.0-7.3) 10/23/16 04:14 Eosinophils % (Manual) 2.0 % (0.0-4.3) 10/23/16 04:14 Basophils % (Manual) 1.0 % (0.0-1.8) 10/23/16 04:14 Metamyelocytes % 1.0 % 10/23/16 04:14 Myelocytes % 0 % 10/23/16 04:14 Promyelocytes % 0 % 10/23/16 04:14 Blast Cells % 0 % 10/23/16 04:14 Nucleated RBC % Not Reportable 10/23/16 04:14 Seg Neutrophils # [place] 10/21/16 05:25 Seg Neutrophils # Man 8.7 K/mm3 (1.8-7.7) H 10/23/16 04:14 Band Neutrophils # 0.2 K/mm3 10/23/16 04:14 Lymphocytes # (Manual) 0.8 K/mm3 (1.2-5.4) L 10/23/16 04:14 Abs React Lymphs (Man) 0.0 K/mm3 10/23/16 04:14 Monocytes # (Manual) 0.2 K/mm3 (0.0-0.8) 10/23/16 04:14 Eosinophils # (Manual) 0.2 K/mm3 (0.0-0.4) 10/23/16 04:14 Basophils # (Manual) 0.1 K/mm3 (0.0-0.1) 10/23/16 04:14 Metamyelocytes # 0.1 K/mm3 10/23/16 04:14 Myelocytes # 0.0 K/mm3 10/23/16 04:14 Promyelocytes # 0.0 K/mm3 10/23/16 04:14 Blast Cells # 0.0 K/mm3 10/23/16 04:14 WBC Morphology Not Reportable 10/23/16 04:14 Hypersegmented Neuts Not Reportable 10/23/16 04:14 Hyposegmented Neuts Not Reportable 10/23/16 04:14 Hypogranular Neuts Not Reportable 10/23/16 04:14 Smudge Cells Not Reportable 10/23/16 04:14 Toxic Granulation Not Reportable 10/23/16 04:14 Toxic Vacuolation Not Reportable 10/23/16 04:14 Dohle Bodies Not Reportable 10/23/16 04:14 Pelger-Huet Anomaly Not Reportable 10/23/16 04:14 Buck Rods Not Reportable 10/23/16 04:14 Platelet Estimate Consistent w auto 10/23/16 04:14 Clumped Platelets Not Reportable 10/23/16 04:14 Plt Clumps, EDTA Not Reportable 10/23/16 04:14 Large Platelets Not Reportable 10/23/16 04:14 Giant Platelets Not Reportable 10/23/16 04:14 Platelet Satelliting Not Reportable 10/23/16 04:14 Plt Morphology Comment Not Reportable 10/23/16 04:14 RBC Morphology Not Reportable 10/23/16 04:14 Dimorphic RBCs Not Reportable 10/23/16 04:14 Polychromasia Not Reportable 10/23/16 04:14 Hypochromasia Not Reportable 10/23/16 04:14 Poikilocytosis Not Reportable 10/23/16 04:14 Anisocytosis Not Reportable 10/23/16 04:14 Microcytosis Not Reportable 10/23/16 04:14 Macrocytosis Not Reportable 10/23/16 04:14 Spherocytes Not Reportable 10/23/16 04:14 Pappenheimer Bodies Not Reportable 10/23/16 04:14 Sickle Cells Not Reportable 10/23/16 04:14 Target Cells Few 10/23/16 04:14 Tear Drop Cells Not Reportable 10/23/16 04:14 Ovalocytes Not Reportable 10/23/16 04:14 Helmet Cells Not Reportable 10/23/16 04:14 [place] Bodies Not Reportable 10/23/16 04:14 [place] Rings Not Reportable 10/23/16 04:14 Erica Cells Not Reportable 10/23/16 04:14 Bite Cells Not Reportable 10/23/16 04:14 Crenated Cell Not Reportable 10/23/16 04:14 Elliptocytes Not Reportable 10/23/16 04:14 Acanthocytes (Spur) Not Reportable 10/23/16 04:14 Rouleaux Not Reportable 10/23/16 04:14 Hemoglobin C Crystals Not Reportable 10/23/16 04:14 Schistocytes Not Reportable 10/23/16 04:14 Malaria parasites Not Reportable 10/23/16 04:14 Percent Retic 1.07 % (0.78-2.58) 10/16/16 09:40 Pranay Bodies Not Reportable 10/23/16 04:14 Hem Pathologist Commnt No 10/23/16 04:14 PT 15.1 Sec. (12.2-14.9) H 10/13/16 15:25 INR 1.13 (0.87-1.13) 10/13/16 15:25 POC ABG pH 7.465 (7.35-7.45) H 10/16/16 23:45 POC ABG pCO2 31.5 (35-45) L 10/16/16 23:45 POC ABG pO2 88 (80-105) 10/16/16 23:45 POC ABG HCO3 22.7 10/16/16 23:45 POC ABG Total CO2 24 10/16/16 23:45 POC ABG O2 Sat 97 10/16/16 23:45 POC ABG Base Excess -1 10/16/16 23:45 VBG pH 7.282 (7.320-7.420) L 10/13/16 15:25 FiO2 40 % 10/16/16 23:45 Sodium 146 mmol/L (137-145) H 10/22/16 03:57 Potassium 3.7 mmol/L (3.6-5.0) 10/22/16 03:57 Chloride 101.1 mmol/L (98-107) 10/22/16 03:57 Carbon Dioxide 34 mmol/L (22-30) H 10/22/16 03:57 Anion Gap 15 mmol/L 10/22/16 03:57 BUN 15 mg/dL (9-20) 10/22/16 03:57 Creatinine 0.5 mg/dL (0.8-1.5) L 10/22/16 03:57 Estimated GFR > 60 ml/min 10/22/16 03:57 BUN/Creatinine Ratio 30.00 % 10/22/16 03:57 Glucose 90 mg/dL (75-100) 10/22/16 03:57 Lactic Acid 1.80 mmol/L (0.7-2.0) 10/15/16 08:05 Calcium 8.2 mg/dL (8.4-10.2) L 10/22/16 03:57 Iron 26 ug/dL (49-181) L 10/16/16 09:40 TIBC 144.20 mcg/dL (250-450) L 10/16/16 09:40 % Saturation 18.03 % 10/16/16 09:40 Transferrin 103 mg/dl (180-329) L 10/16/16 09:40 Ferritin 1072.0 ng/mL (13.0-400.0) H 10/16/16 09:40 Total Bilirubin 0.20 mg/dL (0.1-1.2) 10/16/16 05:04 AST 20 units/L (5-40) 10/16/16 05:04 ALT 13 units/L (7-56) 10/16/16 05:04 Alkaline Phosphatase 697 units/L (35-129) H 10/16/16 05:04 Serum Total Protein 5.6 g/dL (6.1-8.1) L 10/16/16 09:40 Total Protein 5.2 g/dL (6.3-8.2) L 10/16/16 05:04 Albumin 2.2 g/dL (3.8-4.8) L 10/16/16 09:40 Albumin/Globulin Ratio 0.9 % 10/16/16 05:04 Ddyxr-0-Mfsoqaaqw 0.6 g/dL (0.2-0.3) H 10/16/16 09:40 Zbybg-4-Kqkvihayq 1.2 g/dL (0.5-0.9) H 10/16/16 09:40 Beta Globulins 0.3 g/dL (0.2-0.5) 10/16/16 09:40 Gamma Globulins 1.0 g/dL (0.8-1.7) 10/16/16 09:40 Abnorm Protein Band 1 see below 10/16/16 09:40 PEP Interpretation see below H 10/16/16 09:40 Prostate Specific Ag 2088.00 ng/mL (0.00-4.00) H 10/17/16 19:25 Vitamin B12 443.6 pg/mL (211-911) 10/13/16 22:45 Folate 7.55 ng/mL (7.3-26.0) 10/16/16 09:40 Urine Color Yellow (Yellow) 10/13/16 15:26 Urine Turbidity Clear (Clear) 10/13/16 15:26 Urine pH 6.0 (5.0-7.0) 10/13/16 15:26 Ur Specific [place] 1.011 (1.003-1.030) 10/13/16 15:26 Urine Protein <15 mg/dl mg/dL (Negative) 10/13/16 15:26 Urine Glucose (UA) Neg mg/dL (Negative) 10/13/16 15:26 Urine Ketones Neg mg/dL (Negative) 10/13/16 15:26 Urine Blood Sm (Negative) 10/13/16 15:26 Urine Nitrite Neg (Negative) 10/13/16 15:26 Urine Bilirubin Neg (Negative) 10/13/16 15:26 Urine Urobilinogen < 2.0 mg/dL (<2.0) 10/13/16 15:26 Ur Leukocyte Esterase Mod (Negative) 10/13/16 15:26 Urine WBC (Auto) 17.0 /HPF (0.0-6.0) H 10/13/16 15:26 Urine RBC (Auto) 2.0 /HPF (0.0-6.0) 10/13/16 15:26 U Epithel Cells (Auto) < 1.0 /HPF (0-13.0) 10/13/16 15:26 Urine Mucus Few /HPF 10/13/16 15:26 Blood Type B POSITIVE 10/14/16 14:40 Antibody Screen TNR 10/14/16 14:40 SHADI Antibody Screen Negative 10/14/16 14:40 Crossmatch See Detail 10/14/16 14:40
--- NOTE | 2016-10-23 16:47 | Hem/Onc Progress Note ---
Assessment and Plan - Patient Problems (1) Prostate cancer Current Visit: Yes Status: Acute Plan to address problem: Continue androgen deprivation therapy. Outpatient follow up stressed Subjective Date of service: 10/23/16 Interval history: Pain is stable. very cachexic. Objective - Constitutional Vitals: Last Vital Signs Temp 98.2 F 10/23/16 09:40 Pulse 92 H 10/23/16 09:40 Resp 20 10/23/16 09:40 BP 109/60 10/23/16 09:40 Pulse Ox 95 10/23/16 07:40 - Respiratory Respiratory: bilateral: CTA - Cardiovascular Rhythm: regular - Labs Lab Results: Laboratory Results - last 24 hr 10/23/16 04:14 WBC 10.4 RBC 3.46 L Hgb 9.1 L Hct 29.0 L MCV 84 MCH 26 L MCHC 31 L RDW 19.5 H Plt Count 416 Add Manual Diff Complete Total Counted 100 Seg Neuts % (Manual) 84.0 H Band Neutrophils % 2.0 Lymphocytes % (Manual) 8.0 L Reactive Lymphs % (Man) 0 Monocytes % (Manual) 2.0 Eosinophils % (Manual) 2.0 Basophils % (Manual) 1.0 Metamyelocytes % 1.0 Myelocytes % 0 Promyelocytes % 0 Blast Cells % 0 Nucleated RBC % Not Reportable Seg Neutrophils # Man 8.7 H Band Neutrophils # 0.2 Lymphocytes # (Manual) 0.8 L Abs React Lymphs (Man) 0.0 Monocytes # (Manual) 0.2 Eosinophils # (Manual) 0.2 Basophils # (Manual) 0.1 Metamyelocytes # 0.1 Myelocytes # 0.0 Promyelocytes # 0.0 Blast Cells # 0.0 WBC Morphology Not Reportable Hypersegmented Neuts Not Reportable Hyposegmented Neuts Not Reportable Hypogranular Neuts Not Reportable Smudge Cells Not Reportable Toxic Granulation Not Reportable Toxic Vacuolation Not Reportable Dohle Bodies Not Reportable Pelger-Huet Anomaly Not Reportable Buck Rods Not Reportable Platelet Estimate Consistent w auto Clumped Platelets Not Reportable Plt Clumps, EDTA Not Reportable Large Platelets Not Reportable Giant Platelets Not Reportable Platelet Satelliting Not Reportable Plt Morphology Comment Not Reportable RBC Morphology Not Reportable Dimorphic RBCs Not Reportable Polychromasia Not Reportable Hypochromasia Not Reportable Poikilocytosis Not Reportable Anisocytosis Not Reportable Microcytosis Not Reportable Macrocytosis Not Reportable Spherocytes Not Reportable Pappenheimer Bodies Not Reportable Sickle Cells Not Reportable Target Cells Few Tear Drop Cells Not Reportable Ovalocytes Not Reportable Helmet Cells Not Reportable [place] Bodies Not Reportable [place] Rings Not Reportable Erica Cells Not Reportable Bite Cells Not Reportable Crenated Cell Not Reportable Elliptocytes Not Reportable Acanthocytes (Spur) Not Reportable Rouleaux Not Reportable Hemoglobin C Crystals Not Reportable Schistocytes Not Reportable Malaria parasites Not Reportable Pranay Bodies Not Reportable Hem Pathologist Commnt No
[2016-10-23] MEDS: LOVENOX SUB-Q SCH (22:11)
[2016-10-23] MEDS: SENOKOT S PO SCH (22:12)
[2016-10-23] MEDS: REMERON PO SCH (22:12)
[2016-10-23] MEDS: RisperDAL PO SCH (22:12)
[2016-10-24] MEDS: PROVENTIL IH PRN ×2 (04:02→17:57)
[2016-10-24] MEDS: NEURONTIN PO SCH ×3 (08:51→20:58)
[2016-10-24] MEDS: DUONEB *Not for PRN Use IH SCH ×3 (09:00→19:50)
[2016-10-24] MEDS: MIRALAX 3350 PO SCH (09:00)
[2016-10-24] MEDS: ZOLOFT PO SCH (09:00)
[2016-10-24] MEDS: PROTONIX PO SCH (09:00)
--- NOTE | 2016-10-24 11:17 | Progress Note ---
Assessment and Plan Assessment and plan: Patient is a 71-year-old gentleman who has a history of prostate cancer, chronic tobacco use disorder, bipolar disorder, and idiopathic peripheral neuropathy who presented to the emergency department on account of cough with fever 101.8 and nonproductive cough. He was found to have sepsis due to pneumonia and failure to thrive Bone scan Imaging reviewed, diffuse bony metastases Sepsis due to pneumonia * Has completed a course of antibiotics Metastatic prostate cancer * Follows with Dr. Chavez, his input is appreciated * Patient states that he received hormone shots, surgery and radiation treatments. But he is aware that his cancer is widely Metastatic to bone * Oncology consultation appreciated, bone scan reviewed * On his serum protein electrophoreses there was a question bienvenido abnormal band. immunofixation ordered by oncology showed IgM lambda band present, d/w Dr Rivas, he will fup with Dr Horton as outpatient for this Hypernatremia and Hypokalemia Received IV fluids and potassium repletion - Bilateral hydroureter /urinary retention * Status post Hansen placement, patient will need to be discharged with a Hansen - Toxic metabolic encephalopathy-was due to sepsis, also has waxing and waning delirium due to dementia. He is now back to his baseline mental status. - Anemia secondary to malignancy, chronic disease * Status post multiple transfusions, hemoglobin now stable -Severe Protien calorie Malnutrition * Dietitian consults Etoh dependence * No signs of withdrawal, was on Antabuse at home. continue to monitor Severe Debility * continue PT for SNF placement, CM input appreciated UTI was ruled out via negative urine culture DVT ppx lovenox History Interval history: Patient feels well has no complaints, he states that he really does not want to go home with his daughter. She's using his money to take care of her children, who are his 2 grown grandsons. He would like to go to a fdc Hospitalist Physical - Physical exam Narrative exam: General: Frail appearance, very thin HEENT: MMM, EOMI, R eye enucleated cardiac: S1-S2 heard lungs: Bilateral crackles abdomen: soft, nontender, nondistended bowel sounds positive extremities: no edema clubbing or cyanosis Skin: no rash or lesion Neuro: no focal deficit Psych: appropriate behavior and mood, cognition intact - Constitutional Vitals: Temp Pulse Resp BP Pulse Ox 98.7 F 89 20 95/42 93 10/24/16 07:47 10/24/16 09:17 10/24/16 10:00 10/24/16 07:47 10/24/16 10:00 General appearance: Present: mild distress, other (blind on the left eye) Results - Labs CBC & Chem 7: 10/23/16 04:14 10/22/16 03:57 Labs: Laboratory Last Values WBC 10.4 K/mm3 (4.5-11.0) 10/23/16 04:14 RBC 3.46 M/mm3 (3.65-5.03) L 10/23/16 04:14 Hgb 9.1 gm/dl (11.8-15.2) L 10/23/16 04:14 Hct 29.0 % (35.5-45.6) L 10/23/16 04:14 MCV 84 fl (84-94) 10/23/16 04:14 MCH 26 pg (28-32) L 10/23/16 04:14 MCHC 31 % (32-34) L 10/23/16 04:14 RDW 19.5 % (13.2-15.2) H 10/23/16 04:14 Plt Count 416 K/mm3 (140-440) 10/23/16 04:14 Lymph % (Auto) Dealer Support Technician 10/21/16 05:25 [place] % (Auto) Dealer Support Technician 10/21/16 05:25 Eos % (Auto) Dealer Support Technician 10/21/16 05:25 Baso % (Auto) Dealer Support Technician 10/21/16 05:25 Lymph # Dealer Support Technician 10/21/16 05:25 [place] # Dealer Support Technician 10/21/16 05:25 Eos # Dealer Support Technician 10/21/16 05:25 Baso # Dealer Support Technician 10/21/16 05:25 Add Manual Diff Complete 10/23/16 04:14 Total Counted 100 10/23/16 04:14 Seg Neutrophils % Dealer Support Technician 10/21/16 05:25 Seg Neuts % (Manual) 84.0 % (40.0-70.0) H 10/23/16 04:14 Band Neutrophils % 2.0 % 10/23/16 04:14 Lymphocytes % (Manual) 8.0 % (13.4-35.0) L 10/23/16 04:14 Reactive Lymphs % (Man) 0 % 10/23/16 04:14 Monocytes % (Manual) 2.0 % (0.0-7.3) 10/23/16 04:14 Eosinophils % (Manual) 2.0 % (0.0-4.3) 10/23/16 04:14 Basophils % (Manual) 1.0 % (0.0-1.8) 10/23/16 04:14 Metamyelocytes % 1.0 % 10/23/16 04:14 Myelocytes % 0 % 10/23/16 04:14 Promyelocytes % 0 % 10/23/16 04:14 Blast Cells % 0 % 10/23/16 04:14 Nucleated RBC % Not Reportable 10/23/16 04:14 Seg Neutrophils # Dealer Support Technician 10/21/16 05:25 Seg Neutrophils # Man 8.7 K/mm3 (1.8-7.7) H 10/23/16 04:14 Band Neutrophils # 0.2 K/mm3 10/23/16 04:14 Lymphocytes # (Manual) 0.8 K/mm3 (1.2-5.4) L 10/23/16 04:14 Abs React Lymphs (Man) 0.0 K/mm3 10/23/16 04:14 Monocytes # (Manual) 0.2 K/mm3 (0.0-0.8) 10/23/16 04:14 Eosinophils # (Manual) 0.2 K/mm3 (0.0-0.4) 10/23/16 04:14 Basophils # (Manual) 0.1 K/mm3 (0.0-0.1) 10/23/16 04:14 Metamyelocytes # 0.1 K/mm3 10/23/16 04:14 Myelocytes # 0.0 K/mm3 10/23/16 04:14 Promyelocytes # 0.0 K/mm3 10/23/16 04:14 Blast Cells # 0.0 K/mm3 10/23/16 04:14 WBC Morphology Not Reportable 10/23/16 04:14 Hypersegmented Neuts Not Reportable 10/23/16 04:14 Hyposegmented Neuts Not Reportable 10/23/16 04:14 Hypogranular Neuts Not Reportable 10/23/16 04:14 Smudge Cells Not Reportable 10/23/16 04:14 Toxic Granulation Not Reportable 10/23/16 04:14 Toxic Vacuolation Not Reportable 10/23/16 04:14 Dohle Bodies Not Reportable 10/23/16 04:14 Pelger-Huet Anomaly Not Reportable 10/23/16 04:14 Buck Rods Not Reportable 10/23/16 04:14 Platelet Estimate Consistent w auto 10/23/16 04:14 Clumped Platelets Not Reportable 10/23/16 04:14 Plt Clumps, EDTA Not Reportable 10/23/16 04:14 Large Platelets Not Reportable 10/23/16 04:14 Giant Platelets Not Reportable 10/23/16 04:14 Platelet Satelliting Not Reportable 10/23/16 04:14 Plt Morphology Comment Not Reportable 10/23/16 04:14 RBC Morphology Not Reportable 10/23/16 04:14 Dimorphic RBCs Not Reportable 10/23/16 04:14 Polychromasia Not Reportable 10/23/16 04:14 Hypochromasia Not Reportable 10/23/16 04:14 Poikilocytosis Not Reportable 10/23/16 04:14 Anisocytosis Not Reportable 10/23/16 04:14 Microcytosis Not Reportable 10/23/16 04:14 Macrocytosis Not Reportable 10/23/16 04:14 Spherocytes Not Reportable 10/23/16 04:14 Pappenheimer Bodies Not Reportable 10/23/16 04:14 Sickle Cells Not Reportable 10/23/16 04:14 Target Cells Few 10/23/16 04:14 Tear Drop Cells Not Reportable 10/23/16 04:14 Ovalocytes Not Reportable 10/23/16 04:14 Helmet Cells Not Reportable 10/23/16 04:14 Meyer-[place] Bodies Not Reportable 10/23/16 04:14 [place] Rings Not Reportable 10/23/16 04:14 Erica Cells Not Reportable 10/23/16 04:14 Bite Cells Not Reportable 10/23/16 04:14 Crenated Cell Not Reportable 10/23/16 04:14 Elliptocytes Not Reportable 10/23/16 04:14 Acanthocytes (Spur) Not Reportable 10/23/16 04:14 Rouleaux Not Reportable 10/23/16 04:14 Hemoglobin C Crystals Not Reportable 10/23/16 04:14 Schistocytes Not Reportable 10/23/16 04:14 Malaria parasites Not Reportable 10/23/16 04:14 Percent Retic 1.07 % (0.78-2.58) 10/16/16 09:40 Pranay Bodies Not Reportable 10/23/16 04:14 Hem Pathologist Commnt No 10/23/16 04:14 PT 15.1 Sec. (12.2-14.9) H 10/13/16 15:25 INR 1.13 (0.87-1.13) 10/13/16 15:25 POC ABG pH 7.465 (7.35-7.45) H 10/16/16 23:45 POC ABG pCO2 31.5 (35-45) L 10/16/16 23:45 POC ABG pO2 88 (80-105) 10/16/16 23:45 POC ABG HCO3 22.7 10/16/16 23:45 POC ABG Total CO2 24 10/16/16 23:45 POC ABG O2 Sat 97 10/16/16 23:45 POC ABG Base Excess -1 10/16/16 23:45 VBG pH 7.282 (7.320-7.420) L 10/13/16 15:25 FiO2 40 % 10/16/16 23:45 Sodium 146 mmol/L (137-145) H 10/22/16 03:57 Potassium 3.7 mmol/L (3.6-5.0) 10/22/16 03:57 Chloride 101.1 mmol/L (98-107) 10/22/16 03:57 Carbon Dioxide 34 mmol/L (22-30) H 10/22/16 03:57 Anion Gap 15 mmol/L 10/22/16 03:57 BUN 15 mg/dL (9-20) 10/22/16 03:57 Creatinine 0.5 mg/dL (0.8-1.5) L 10/22/16 03:57 Estimated GFR > 60 ml/min 10/22/16 03:57 BUN/Creatinine Ratio 30.00 % 10/22/16 03:57 Glucose 90 mg/dL (75-100) 10/22/16 03:57 Lactic Acid 1.80 mmol/L (0.7-2.0) 10/15/16 08:05 Calcium 8.2 mg/dL (8.4-10.2) L 10/22/16 03:57 Iron 26 ug/dL (49-181) L 10/16/16 09:40 TIBC 144.20 mcg/dL (250-450) L 10/16/16 09:40 % Saturation 18.03 % 10/16/16 09:40 Transferrin 103 mg/dl (180-329) L 10/16/16 09:40 Ferritin 1072.0 ng/mL (13.0-400.0) H 10/16/16 09:40 Total Bilirubin 0.20 mg/dL (0.1-1.2) 10/16/16 05:04 AST 20 units/L (5-40) 10/16/16 05:04 ALT 13 units/L (7-56) 10/16/16 05:04 Alkaline Phosphatase 697 units/L (35-129) H 10/16/16 05:04 Serum Total Protein 5.6 g/dL (6.1-8.1) L 10/16/16 09:40 Total Protein 5.2 g/dL (6.3-8.2) L 10/16/16 05:04 Albumin 2.2 g/dL (3.8-4.8) L 10/16/16 09:40 Albumin/Globulin Ratio 0.9 % 10/16/16 05:04 Mtbvf-6-Pzxhgcyuw 0.6 g/dL (0.2-0.3) H 10/16/16 09:40 Mmfvw-0-Lzaannajn 1.2 g/dL (0.5-0.9) H 10/16/16 09:40 Beta Globulins 0.3 g/dL (0.2-0.5) 10/16/16 09:40 Gamma Globulins 1.0 g/dL (0.8-1.7) 10/16/16 09:40 Abnorm Protein Band 1 see below 10/16/16 09:40 PEP Interpretation see below H 10/16/16 09:40 Prostate Specific Ag 2088.00 ng/mL (0.00-4.00) H 10/17/16 19:25 Vitamin B12 443.6 pg/mL (211-911) 10/13/16 22:45 Folate 7.55 ng/mL (7.3-26.0) 10/16/16 09:40 Urine Color Yellow (Yellow) 10/13/16 15:26 Urine Turbidity Clear (Clear) 10/13/16 15:26 Urine pH 6.0 (5.0-7.0) 10/13/16 15:26 Ur Specific [place] 1.011 (1.003-1.030) 10/13/16 15:26 Urine Protein <15 mg/dl mg/dL (Negative) 10/13/16 15:26 Urine Glucose (UA) Neg mg/dL (Negative) 10/13/16 15:26 Urine Ketones Neg mg/dL (Negative) 10/13/16 15:26 Urine Blood Sm (Negative) 10/13/16 15:26 Urine Nitrite Neg (Negative) 10/13/16 15:26 Urine Bilirubin Neg (Negative) 10/13/16 15:26 Urine Urobilinogen < 2.0 mg/dL (<2.0) 10/13/16 15:26 Ur Leukocyte Esterase Mod (Negative) 10/13/16 15:26 Urine WBC (Auto) 17.0 /HPF (0.0-6.0) H 10/13/16 15:26 Urine RBC (Auto) 2.0 /HPF (0.0-6.0) 10/13/16 15:26 U Epithel Cells (Auto) < 1.0 /HPF (0-13.0) 10/13/16 15:26 Urine Mucus Few /HPF 10/13/16 15:26 Immunofix Electrophor see below H 10/19/16 07:30 Blood Type B POSITIVE 10/14/16 14:40 Antibody Screen TNR 10/14/16 14:40 SHADI Antibody Screen Negative 10/14/16 14:40 Crossmatch See Detail 10/14/16 14:40
[2016-10-24] MEDS: HABITROL TD SCH (14:40)
[2016-10-24] MEDS: ULTRAM PO PRN (16:16)
[2016-10-24] MEDS: REMERON PO SCH (21:32)
[2016-10-24] MEDS: RisperDAL PO SCH (21:32)
[2016-10-24] MEDS: SENOKOT S PO SCH (21:33)
[2016-10-24] MEDS: LOVENOX SUB-Q SCH (21:35)
[2016-10-25] MEDS: ULTRAM PO PRN ×3 (02:23→17:07)
[2016-10-25] MEDS: DUONEB *Not for PRN Use IH SCH ×2 (07:59→17:15)
[2016-10-25] MEDS: NEURONTIN PO SCH ×2 (08:05→13:25)
[2016-10-25] MEDS: MIRALAX 3350 PO SCH (09:11)
[2016-10-25] MEDS: ZOLOFT PO SCH (09:12)
[2016-10-25] MEDS: PROTONIX PO SCH (09:12)
[2016-10-25 10:37] VITALS: BP 102/47
--- NOTE | 2016-10-25 12:15 | Progress Note ---
Assessment and Plan Assessment and plan: Patient is a 71-year-old gentleman who has a history of prostate cancer, chronic tobacco use disorder, bipolar disorder, and idiopathic peripheral neuropathy who presented to the emergency department on account of cough with fever 101.8 and nonproductive cough. He was found to have sepsis due to pneumonia and failure to thrive Bone scan Imaging reviewed, diffuse bony metastases Sepsis due to pneumonia * Has completed a course of antibiotics Metastatic prostate cancer * Follows with Dr. Chavez, his input is appreciated * Patient states that he received hormone shots, surgery and radiation treatments. But he is aware that his cancer is widely Metastatic to bone * Oncology consultation appreciated, bone scan reviewed * On his serum protein electrophoreses there was a question bienvenido abnormal band. immunofixation ordered by oncology showed IgM lambda band present, d/w Dr Rivas, he will fup with Dr Horton as outpatient for this Hypernatremia and Hypokalemia Received IV fluids and potassium repletion - Bilateral hydroureter /urinary retention * Status post Hansen placement, patient will need to be discharged with a Hansen - Toxic metabolic encephalopathy-was due to sepsis, also has waxing and waning delirium due to dementia. He is now back to his baseline mental status. - Anemia secondary to malignancy, chronic disease * Status post multiple transfusions, hemoglobin now stable -Severe Protien calorie Malnutrition * Dietitian consults Etoh dependence * No signs of withdrawal, was on Antabuse at home. continue to monitor Severe Debility * continue PT for SNF placement, CM input appreciated UTI was ruled out via negative urine culture DVT ppx lovenox Hospitalist Physical - Constitutional Vitals: Temp Pulse Resp BP Pulse Ox 98.2 F 92 H 20 102/47 94 10/25/16 10:00 10/25/16 10:00 10/25/16 10:00 10/25/16 10:00 10/25/16 10:00 General appearance: Present: mild distress, other (blind on the left eye) Results - Labs CBC & Chem 7: 10/23/16 04:14 10/22/16 03:57 Labs: Laboratory Last Values WBC 10.4 K/mm3 (4.5-11.0) 10/23/16 04:14 RBC 3.46 M/mm3 (3.65-5.03) L 10/23/16 04:14 Hgb 9.1 gm/dl (11.8-15.2) L 10/23/16 04:14 Hct 29.0 % (35.5-45.6) L 10/23/16 04:14 MCV 84 fl (84-94) 10/23/16 04:14 MCH 26 pg (28-32) L 10/23/16 04:14 MCHC 31 % (32-34) L 10/23/16 04:14 RDW 19.5 % (13.2-15.2) H 10/23/16 04:14 Plt Count 416 K/mm3 (140-440) 10/23/16 04:14 Lymph % (Auto) Fruit Farmer 10/21/16 05:25 [place] % (Auto) Fruit Farmer 10/21/16 05:25 Eos % (Auto) Fruit Farmer 10/21/16 05:25 Baso % (Auto) Fruit Farmer 10/21/16 05:25 Lymph # Fruit Farmer 10/21/16 05:25 Jack # Fruit Farmer 10/21/16 05:25 Eos # Fruit Farmer 10/21/16 05:25 Baso # Fruit Farmer 10/21/16 05:25 Add Manual Diff Complete 10/23/16 04:14 Total Counted 100 10/23/16 04:14 Seg Neutrophils % Fruit Farmer 10/21/16 05:25 Seg Neuts % (Manual) 84.0 % (40.0-70.0) H 10/23/16 04:14 Band Neutrophils % 2.0 % 10/23/16 04:14 Lymphocytes % (Manual) 8.0 % (13.4-35.0) L 10/23/16 04:14 Reactive Lymphs % (Man) 0 % 10/23/16 04:14 Monocytes % (Manual) 2.0 % (0.0-7.3) 10/23/16 04:14 Eosinophils % (Manual) 2.0 % (0.0-4.3) 10/23/16 04:14 Basophils % (Manual) 1.0 % (0.0-1.8) 10/23/16 04:14 Metamyelocytes % 1.0 % 10/23/16 04:14 Myelocytes % 0 % 10/23/16 04:14 Promyelocytes % 0 % 10/23/16 04:14 Blast Cells % 0 % 10/23/16 04:14 Nucleated RBC % Not Reportable 10/23/16 04:14 Seg Neutrophils # Fruit Farmer 10/21/16 05:25 Seg Neutrophils # Man 8.7 K/mm3 (1.8-7.7) H 10/23/16 04:14 Band Neutrophils # 0.2 K/mm3 10/23/16 04:14 Lymphocytes # (Manual) 0.8 K/mm3 (1.2-5.4) L 10/23/16 04:14 Abs React Lymphs (Man) 0.0 K/mm3 10/23/16 04:14 Monocytes # (Manual) 0.2 K/mm3 (0.0-0.8) 10/23/16 04:14 Eosinophils # (Manual) 0.2 K/mm3 (0.0-0.4) 10/23/16 04:14 Basophils # (Manual) 0.1 K/mm3 (0.0-0.1) 10/23/16 04:14 Metamyelocytes # 0.1 K/mm3 10/23/16 04:14 Myelocytes # 0.0 K/mm3 10/23/16 04:14 Promyelocytes # 0.0 K/mm3 10/23/16 04:14 Blast Cells # 0.0 K/mm3 10/23/16 04:14 WBC Morphology Not Reportable 10/23/16 04:14 Hypersegmented Neuts Not Reportable 10/23/16 04:14 Hyposegmented Neuts Not Reportable 10/23/16 04:14 Hypogranular Neuts Not Reportable 10/23/16 04:14 Smudge Cells Not Reportable 10/23/16 04:14 Toxic Granulation Not Reportable 10/23/16 04:14 Toxic Vacuolation Not Reportable 10/23/16 04:14 Dohle Bodies Not Reportable 10/23/16 04:14 Pelger-Huet Anomaly Not Reportable 10/23/16 04:14 Buck Rods Not Reportable 10/23/16 04:14 Platelet Estimate Consistent w auto 10/23/16 04:14 Clumped Platelets Not Reportable 10/23/16 04:14 Plt Clumps, EDTA Not Reportable 10/23/16 04:14 Large Platelets Not Reportable 10/23/16 04:14 Giant Platelets Not Reportable 10/23/16 04:14 Platelet Satelliting Not Reportable 10/23/16 04:14 Plt Morphology Comment Not Reportable 10/23/16 04:14 RBC Morphology Not Reportable 10/23/16 04:14 Dimorphic RBCs Not Reportable 10/23/16 04:14 Polychromasia Not Reportable 10/23/16 04:14 Hypochromasia Not Reportable 10/23/16 04:14 Poikilocytosis Not Reportable 10/23/16 04:14 Anisocytosis Not Reportable 10/23/16 04:14 Microcytosis Not Reportable 10/23/16 04:14 Macrocytosis Not Reportable 10/23/16 04:14 Spherocytes Not Reportable 10/23/16 04:14 Pappenheimer Bodies Not Reportable 10/23/16 04:14 Sickle Cells Not Reportable 10/23/16 04:14 Target Cells Few 10/23/16 04:14 Tear Drop Cells Not Reportable 10/23/16 04:14 Ovalocytes Not Reportable 10/23/16 04:14 Helmet Cells Not Reportable 10/23/16 04:14 Meyer-[place] Bodies Not Reportable 10/23/16 04:14 [place] Rings Not Reportable 10/23/16 04:14 [place] Cells Not Reportable 10/23/16 04:14 Bite Cells Not Reportable 10/23/16 04:14 Crenated Cell Not Reportable 10/23/16 04:14 Elliptocytes Not Reportable 10/23/16 04:14 Acanthocytes (Spur) Not Reportable 10/23/16 04:14 Rouleaux Not Reportable 10/23/16 04:14 Hemoglobin C Crystals Not Reportable 10/23/16 04:14 Schistocytes Not Reportable 10/23/16 04:14 Malaria parasites Not Reportable 10/23/16 04:14 Percent Retic 1.07 % (0.78-2.58) 10/16/16 09:40 Pranay Bodies Not Reportable 10/23/16 04:14 Hem Pathologist Commnt No 10/23/16 04:14 PT 15.1 Sec. (12.2-14.9) H 10/13/16 15:25 INR 1.13 (0.87-1.13) 10/13/16 15:25 POC ABG pH 7.465 (7.35-7.45) H 10/16/16 23:45 POC ABG pCO2 31.5 (35-45) L 10/16/16 23:45 POC ABG pO2 88 (80-105) 10/16/16 23:45 POC ABG HCO3 22.7 10/16/16 23:45 POC ABG Total CO2 24 10/16/16 23:45 POC ABG O2 Sat 97 10/16/16 23:45 POC ABG Base Excess -1 10/16/16 23:45 VBG pH 7.282 (7.320-7.420) L 10/13/16 15:25 FiO2 40 % 10/16/16 23:45 Sodium 146 mmol/L (137-145) H 10/22/16 03:57 Potassium 3.7 mmol/L (3.6-5.0) 10/22/16 03:57 Chloride 101.1 mmol/L (98-107) 10/22/16 03:57 Carbon Dioxide 34 mmol/L (22-30) H 10/22/16 03:57 Anion Gap 15 mmol/L 10/22/16 03:57 BUN 15 mg/dL (9-20) 10/22/16 03:57 Creatinine 0.5 mg/dL (0.8-1.5) L 10/22/16 03:57 Estimated GFR > 60 ml/min 10/22/16 03:57 BUN/Creatinine Ratio 30.00 % 10/22/16 03:57 Glucose 90 mg/dL (75-100) 10/22/16 03:57 POC Glucose 114 (70-105) H 10/23/16 21:59 Lactic Acid 1.80 mmol/L (0.7-2.0) 10/15/16 08:05 Calcium 8.2 mg/dL (8.4-10.2) L 10/22/16 03:57 Iron 26 ug/dL (49-181) L 10/16/16 09:40 TIBC 144.20 mcg/dL (250-450) L 10/16/16 09:40 % Saturation 18.03 % 10/16/16 09:40 Transferrin 103 mg/dl (180-329) L 10/16/16 09:40 Ferritin 1072.0 ng/mL (13.0-400.0) H 10/16/16 09:40 Total Bilirubin 0.20 mg/dL (0.1-1.2) 10/16/16 05:04 AST 20 units/L (5-40) 10/16/16 05:04 ALT 13 units/L (7-56) 10/16/16 05:04 Alkaline Phosphatase 697 units/L (35-129) H 10/16/16 05:04 Serum Total Protein 5.6 g/dL (6.1-8.1) L 10/16/16 09:40 Total Protein 5.2 g/dL (6.3-8.2) L 10/16/16 05:04 Albumin 2.2 g/dL (3.8-4.8) L 10/16/16 09:40 Albumin/Globulin Ratio 0.9 % 10/16/16 05:04 Wvnop-7-Akmujhxtr 0.6 g/dL (0.2-0.3) H 10/16/16 09:40 Edqzb-1-Hmzuwdeno 1.2 g/dL (0.5-0.9) H 10/16/16 09:40 Beta Globulins 0.3 g/dL (0.2-0.5) 10/16/16 09:40 Gamma Globulins 1.0 g/dL (0.8-1.7) 10/16/16 09:40 Abnorm Protein Band 1 see below 10/16/16 09:40 PEP Interpretation see below H 10/16/16 09:40 Prostate Specific Ag 2088.00 ng/mL (0.00-4.00) H 10/17/16 19:25 Vitamin B12 443.6 pg/mL (211-911) 10/13/16 22:45 Folate 7.55 ng/mL (7.3-26.0) 10/16/16 09:40 Urine Color Yellow (Yellow) 10/13/16 15:26 Urine Turbidity Clear (Clear) 10/13/16 15:26 Urine pH 6.0 (5.0-7.0) 10/13/16 15:26 Ur Specific [place] 1.011 (1.003-1.030) 10/13/16 15:26 Urine Protein <15 mg/dl mg/dL (Negative) 10/13/16 15:26 Urine Glucose (UA) Neg mg/dL (Negative) 10/13/16 15:26 Urine Ketones Neg mg/dL (Negative) 10/13/16 15:26 Urine Blood Sm (Negative) 10/13/16 15:26 Urine Nitrite Neg (Negative) 10/13/16 15:26 Urine Bilirubin Neg (Negative) 10/13/16 15:26 Urine Urobilinogen < 2.0 mg/dL (<2.0) 10/13/16 15:26 Ur Leukocyte Esterase Mod (Negative) 10/13/16 15:26 Urine WBC (Auto) 17.0 /HPF (0.0-6.0) H 10/13/16 15:26 Urine RBC (Auto) 2.0 /HPF (0.0-6.0) 10/13/16 15:26 U Epithel Cells (Auto) < 1.0 /HPF (0-13.0) 10/13/16 15:26 Urine Mucus Few /HPF 10/13/16 15:26 Immunofix Electrophor see below H 10/19/16 07:30 Blood Type B POSITIVE 10/14/16 14:40 Antibody Screen TNR 10/14/16 14:40 SHADI Antibody Screen Negative 10/14/16 14:40 Crossmatch See Detail 10/14/16 14:40
[2016-10-25] MEDS: HABITROL TD SCH (14:25)
== END 2016-10-25 19:20 | DRG 871 ==
LOC: ED 14:55 → 4A 21:33 → CC2 10-14 15:27
PROVIDERS: ADMIT Family Medicine; ATTEND Internal Medicine
PROC: 4A033R1 Measurement of Arterial Saturation, Peripheral, Percutaneous Approach (ICD-10-PCS; 2016-10-13)
PROC: 30233N1 Transfusion of Nonautologous Red Blood Cells into Peripheral Vein, Percutaneous Approach (ICD-10-PCS; principal; 2016-10-14)
DX: A41.9 Sepsis, unspecified organism (principal); G92 Toxic encephalopathy; E43 Unspecified severe protein-calorie malnutrition; J69.0 Pneumonitis due to inhalation of food and vomit; N30.00 Acute cystitis without hematuria; N13.30 Unspecified hydronephrosis; J90 Pleural effusion, not elsewhere classified; E87.0 Hyperosmolality and hypernatremia; Z68.1 Body mass index [BMI] 19.9 or less, adult; C79.51 Secondary malignant neoplasm of bone; D64.9 Anemia, unspecified; R74.8 Abnormal levels of other serum enzymes; E87.6 Hypokalemia; R53.81 Other malaise; J44.9 Chronic obstructive pulmonary disease, unspecified; F03.90 Unspecified dementia, unspecified severity, without behavioral disturbance, psychotic disturbance, mood disturbance, and anxiety; Z85.46 Personal history of malignant neoplasm of prostate; F31.9 Bipolar disorder, unspecified; G60.9 Hereditary and idiopathic neuropathy, unspecified; Z88.0 Allergy status to penicillin; H54.42 Blindness, left eye, normal vision right eye; F10.20 Alcohol dependence, uncomplicated; Y90.9 Presence of alcohol in blood, level not specified
CPT/HCPCS: 36415; 36600; 71010; 71270; 74178; 78306; 80048; 80053; 81001; 82140; 82270; 82607; 82728; 82747; 82803; 82805; 82962; 83550; 84153; 84165; 85007; 85014; 85018; 85025; 85027; 85045; 85610; 86334; 86850; 86900; 86901; 86920; 87040; 87086; 87205; 93005; 93010; 94640; 94660; 94760; 96361; 96365; 96366; 96367; A9503; G8978-GP; G8979-GP; G8987-GO; G8988-GO; J0456; J0696; J1650; J1940; J1956; J3370; J3480; J7030; J7040; J7050; J7070; P9016; Q9967